=== PATIENT | female | born 1965 | race Caucasian/White ===

== ENCOUNTER 2022-10-05 08:22 | Outpatient (REF) | payer MEDICAID, SELFPAY ==
--- NOTE | ~2022-10-05 | XR_ITS ---
EXAMINATION: XR SHOULDER, LEFT CLINICAL INFORMATION: Left shoulder pain. COMPARISON: None available. TECHNIQUE: AP external rotation, scapular Y of the left shoulder. Glenohumeral degenerative type changes. Mild widening of the AC joint without superior orientation of the clavicle relative to the acromion. Demineralization. Visualized ribs are intact. Increased markings are identified in the left upper lung, in part likely apical scarring but pulmonary parenchymal component questioned. Aortic calcifications. XR/XR shoulder LT min 2V IMPRESSION: Degenerative type changes. Chest radiograph recommended for increased markings left apex.
== END 2022-10-05 08:23 | disposition home or self-care (01) ==
LOC: HO.HOSX 08:22
PROVIDERS: Visit Provider Orthopaedic Surgery
DX: M75.42 Impingement syndrome of left shoulder (principal)
CPT/HCPCS: 73030; 99212

== ENCOUNTER 2022-10-05 08:53 | Outpatient (AMB) | payer MEDICAID, SELFPAY ==
--- NOTE | 2022-10-05 09:03 | MHC.OFFVIS ---
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 Stephens for her left shoulder pain and stiffness. The patient did undergo left shoulder arthroscopic surgery several years ago. She got good relief from that surgery initially. She states that over the last year her shoulder pain and stiffness have gotten progressively worse in spite of continued non operative treatments. She has had cortisone injections in the past which gave her minimal relief. She has also done physical therapy for 12 weeks over the last 6 months which aggravated her pain. She has tried Tylenol and anti-inflammatory medicines which gave her minimal relief. The patient reports difficulty lifting her left hand above shoulder height. 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 Physical Exam Const Other: Well-nourished well-developed very friendly female awake alert and oriented x3 in no acute distress Extrem Other: Bilateral upper extremity examination shows good capillary refill, no skin lesions noted, normal sensation light touch Left shoulder examination shows decreased active and passive range of motion when compared to her right shoulder, pain with range of motion, positive impingement signs, 4+ out of 5 strength with supraspinatus testing, tenderness over her acromioclavicular joint, no instability Results Reviewed Results Reviewed: X-rays of the patient's left shoulder taken today show severe acromioclavicular joint narrowing, type 2 acromion, no acute bony abnormalities MRI of the patient's left shoulder shows acromioclavicular joint narrowing, type 2 acromion, signal change within the supraspinatus tendon due to rotator cuff tendinosis versus a small rotator cuff tear Assessment & Plan Assessment & Plan (1) Impingement syndrome of left shoulder: Code(s): M75.42 - Impingement syndrome of left shoulder Plan Ms. Leach presents with left shoulder pain and weakness due to acromioclavicular joint arthritis, impingement syndrome and rotator cuff tendinosis versus possible rotator cuff tearing or adhesive capsulitis. I had a lengthy discussion with the patient regarding the treatment options. At this point she has failed continued non operative treatments. The risks and benefits of left shoulder surgery were discussed at length with the patient. The patient wishes to proceed with surgery. Surgery will most likely involve left shoulder diagnostic arthroscopy with distal clavicle excision, acromioplasty, possible anterior capsular release with manipulation under anesthesia as well as possible rotator cuff repair showed a full-thickness tear be found at the time of her surgery. The patient will contact my office to pick a surgery date. She will follow up as instructed. She will continue with her range of motion exercises in the meantime to prevent stiffness. The patient will be given a prescription for pain medicine at the time of her surgery. Feel free to call me at any time should questions regarding her orthopedic management arise. Thank you very much for asking me to see this very friendly patient. I spent 24 minutes in reviewing the patient's records and imaging studies, seeing the patient and documenting in the medical record. Orders: Orders XR shoulder LT min 2V Today M25.512 - Pain in left shoulder Coding Level of Care Code Est Pt Level 2 (64081) Diagnoses Impingement syndrome of left shoulder M75.42
[2022-10-05 09:10] VITALS: BMI 23.8
== END 2022-10-05 09:47 | disposition home or self-care (01) ==
PROVIDERS: Visit Provider Orthopaedic Surgery
DX: M75.42 Impingement syndrome of left shoulder (principal)
CPT/HCPCS: 99212

== ENCOUNTER → 2022-10-30 08:17 | Day surgery (SDC) | payer MEDICAID, SELFPAY ==
[2022-10-30 08:33] VITALS: BP 131/67; PULSE 75; RESP 16; TEMP 36.1; O2SAT 96; BMI 23.5
--- NOTE | 2022-10-30 09:28 | HO.ANESPROP2 ---
HPI - Anesthesia Eval Consult details Narrative: left shoulder surgery, smoker , copd, smoked today , took inhaler PMF Active Problems Active Problems: All Active Problems (Updated 10/05/22 @ 09:59 by Tino Stephens MD) Impingement syndrome of left shoulder (Acute) Left shoulder pain (Acute) Past Medical History Medical History High cholesterol Family History Family history of problems with anesthesia: No Surgical History History of Problems with Anesthesia: No Social History Social History Patient Tobacco Use Status: Current everyday Tobacco user Tobacco use type: Cigarette Cigarettes Per Day: 4 Are you DNR?: No Advance Directives: No Advance Directives Information Provided: Yes Current occupational status: employed 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 Meds Allergies Allergy/AdvReac Type Severity Reaction Status Date / Time infliximab [From Remicade] Allergy Anaphylaxis Verified 10/30/22 08:55 rituximab [From Rituxan] Allergy Anaphylaxis Verified 10/30/22 08:55 novacaine Allergy Mild Hives Uncoded 10/05/22 09:11 Active Medications: Current Medications Albuterol Sulfate (Albuterol Sulfate (0.083%) 2.5 Mg/3 Ml Vial.Neb) 2.5 mg INHALE ONCE PRN PRN Reason: Shortness of Breath/Wheezing Lactated Ringer's (Lr) 1,000 mls @ 100 mls/hr IVCONT .Q10H JENIFFER Home Medications Medication Instructions Recorded Confirmed Last Taken Type budesonide-formoterol HFA 80 1 inh inhalation BID 10/05/22 10/05/22 10/29/22 History mcg-4.5 mcg/actuation aerosol inhaler (Symbicort) cholecalciferol (vitamin D3) 10 10 mcg PO DAILY 10/05/22 10/05/22 Unknown History mcg (400 unit) capsule diphenhydramine HCl 12.5 mg/5 mL 12.5 mg PO BEDTIME 10/05/22 10/05/22 Unknown History oral liquid (Benadryl Allergy) ezetimibe 10 mg-rosuvastatin 5 mg 1 tab PO DAILY 10/05/22 10/05/22 Unknown History tablet tocilizumab 80 mg/4 mL (20 mg/mL) IV 10/05/22 10/05/22 Unknown History intravenous solution (Actemra) albuterol sulfate 90 mcg/actuation 2 puff inhalation TID PRN 10/30/22 10/30/22 10/30/22 History aerosol inhaler Shortness Of Breath Exam Exam Date and Time: October 30, 2022 0928 Height,Weight and Vital Signs: Height 5 ft 7 in Weight 68.039 kg Last Vital Signs Temp 97 F 10/30/22 08:33 Airway Mallampati Class: II TM Dist: >3cm Neck ROM: Full Denture: Upper and Lower Heart: rrr Lungs: cta Assessment and Plan Final Anesthetic Review Family History of Problems with Anesthesia: No History of Problems with Anesthesia: No NPO: Yes ASA Class: III Final Preanesthetic Review: No Changes in Pt Med Stat, Meds/Allgs Chart Reviewed, Consent Obtained/Reviewed and Anes Risks/Benef Reviewed Patient Risk: Intermediate Procedure Risk: Intermediate Anesthetic Plan Anesthetic Plan: GA, Regional Block and Agree w/ Assess. and Plan Disposition: Standard PACU
[2022-10-30] MEDS: Albuterol/Iprat 2.5/0.5MG 3 ML AMPUL.NEB INHALE (09:41)
[2022-10-30 09:44] VITALS: PULSE 72; RESP 16; O2SAT 97
--- NOTE | 2022-10-30 10:52 | HO.ANESEVENT ---
Anesthesia Event Note Date of Service: 10/30/22 Event Note: pt with severe wheezing on right and absent breath sounds on left . pt is a smoker and smoked this AM. Had pneumonia which was treated on right side in august . got steroid taper and abiotics. today received albuterol, duoneb, and dexamethasone i.v with min improvement pt still wheezing and very diminished breathsounds bilaterally confirmed by 2 other providers , increasedrespiratory risk to proceed with interscalens block on left unless pt can be admitted in the event of further decompensation.discuss with surgeon who agrees with above . joint decsion taken to pistpone surgery , have pt see pulm for optimisation , rec chest x ray prior to surgery. Time Spent With Patient Time: Total time managing care of this patient today ____ minutes.
== END ==
PROVIDERS: PCP Family Medicine; Visit Provider Orthopaedic Surgery
DX: M75.102 Unspecified rotator cuff tear or rupture of left shoulder, not specified as traumatic (principal); Z53.8 Procedure and treatment not carried out for other reasons; R06.2 Wheezing; Z87.01 Personal history of pneumonia (recurrent); F17.210 Nicotine dependence, cigarettes, uncomplicated
CPT/HCPCS: 94640; 99499; J0171; J3010

== ENCOUNTER 2022-11-14 08:06 | Outpatient (AMB) | payer MEDICAID, SELFPAY ==
--- NOTE | 2022-11-14 08:12 | MHC.OFFVIS ---
Intake Intake Visit Reasons: OV RT shld, consult for surgery Intake Note: Pt presents to the office today for a OV for right shoulder surgery consult. Pt is left handed dominant. She states she has had 1 previous surgery on the same shoulder back in 2005. Pt states also had 1 injection in that shoulder as well back in August of 2022. Pt states the injection did not help at all. Pt states she has cracking, and popping in her shoulder. She states her pain is at a 9 right now. She states nothing is helping her at this point and time. She states that over the last year her shoulder pain and stiffness have gotten progressively worse in spite of continued non operative treatments.? She has had cortisone injections in the past which gave her minimal relief.? She has also done physical therapy for 12 weeks over the last 6 months which aggravated her pain.? She has tried Tylenol and anti-inflammatory medicines which gave her minimal relief.? The patient reports difficulty lifting her left hand above shoulder height.? She was recently scheduled for left shoulder surgery. That surgery was postponed due to pulmonary issues. Since that time she has been evaluated by her substitute nurse to did clear her for surgery. Allergies infliximab [From Remicade] Allergy (Verified 11/14/22 08:13) Anaphylaxis rituximab [From Rituxan] Allergy (Verified 11/14/22 08:13) Anaphylaxis novacaine Allergy (Mild, Uncoded 11/14/22 08:13) Hives Medication List - Last Reconciled 11/14/22 by Tino Stephens MD albuterol sulfate 90 mcg/actuation 2 puffs inhalation TID PRN budesonide-formoterol 80-4.5 mcg/actuation (Symbicort) 1 inh inhalation BID cholecalciferol (vitamin D3) 10 mcg PO DAILY diphenhydramine HCl (Benadryl Allergy) 12.5 mg PO BEDTIME ezetimibe-rosuvastatin 10-5 mg 1 tab PO DAILY tocilizumab (Actemra) IV PFSH Medical History Bronchitis COPD (chronic obstructive pulmonary disease) High cholesterol Surgical History History of lung surgery Hx laparoscopic cholecystectomy Social History Patient Tobacco Use Status: Current everyday Tobacco user Tobacco use type: Cigarette Cigarettes Per Day: 4 Current occupational status: employed 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 Physical Exam Const Other: Well-nourished well-developed very friendly female awake alert and oriented x3 in no acute distress Lungs clear to auscultation bilaterally with symmetric expansion Cardiovascular exam regular rate and rhythm Abdominal exam is soft nontender nondistended Extrem Other: Bilateral upper extremity examination shows good capillary refill, no skin lesions noted, normal sensation light touch Left shoulder examination shows decreased range of motion when compared to her right shoulder, 4+ out of 5 strength with supraspinatus testing, positive impingement signs, tenderness over her acromioclavicular joint, no instability Results Reviewed Results Reviewed: MRI of the patient's left shoulder shows severe acromioclavicular joint narrowing, a type 2 acromion, signal change within the supraspinatus tendon due to rotator cuff tendinosis versus a small tear Assessment & Plan Assessment & Plan (1) Impingement syndrome of left shoulder: Code(s): M75.42 - Impingement syndrome of left shoulder Plan: Ms. Leach presents with left shoulder pain and weakness due to acromioclavicular joint arthritis, impingement syndrome and rotator cuff tendinosis versus possible rotator cuff tearing or adhesive capsulitis.? I had a lengthy discussion with the patient regarding the treatment options.? At this point she has failed continued non operative treatments.? The risks and benefits of left shoulder surgery were discussed at length with the patient.? The patient wishes to proceed with surgery.? Surgery will most likely involve left shoulder diagnostic arthroscopy with distal clavicle excision, acromioplasty, possible anterior capsular release with manipulation under anesthesia as well as possible rotator cuff repair showed a full-thickness tear be found at the time of her surgery.? The patient recently had her left shoulder surgery postponed due to pulmonary issues. She has been cleared by her substitute nurse. The patient will contact my office to pick a surgery date.? She will follow up as instructed.? She will continue with her range of motion exercises in the meantime to prevent stiffness.? The patient was given a prescription for Tylenol No. 3 for her postoperative pain. Feel free to call me at any time should questions regarding her orthopedic management arise.? Coding Level of Care Code Est Pt Level 2 (00405) Diagnoses Impingement syndrome of left shoulder M75.42
== END 2022-11-14 08:25 | disposition home or self-care (01) ==
PROVIDERS: PCP Family Medicine; Visit Provider Orthopaedic Surgery
DX: M75.42 Impingement syndrome of left shoulder (principal)
CPT/HCPCS: 99212

== ENCOUNTER → 2022-11-14 08:06 | Outpatient (BNVA) | payer OTHER, MEDICAID, SELFPAY | PROVIDERS: PCP Family Medicine; Visit Provider Orthopaedic Surgery | DX: M75.42 Impingement syndrome of left shoulder (principal) | CPT/HCPCS: 99212 ==

== ENCOUNTER 2022-12-01 06:51 | Day surgery (SDC) | payer OTHER, MEDICAID, SELFPAY ==
--- NOTE | 2022-11-30 09:18 | P.CONAN_ITS ---
Documented by User: Chloé Johnson NP 11/30/22 09:35 HPI - Anesthesia Eval Consult details Narrative: 57yo F for Left Shoulder Arthroscopy with a distal clavicle excision,poss Acromioplasty,with poss rotator cuff repair Previously cx'd d/t poor respiratory status / increased pulmo risk with scalene block Subsequently seen by pulm, nml CXR and prednisone. ? 5mg daily Cleared 11/29/22 at intermed risk PMFSH Active Problems Active Problems: All Active Problems (Updated 10/30/22 @ 09:37 by Kylah Aguiar RN) Left shoulder pain (Acute) Impingement syndrome of left shoulder (Acute) Past Medical History Medical History (Updated 12/01/22 @ 07:01 by Jennifer Gonzalez RN) Anemia Smoker Rheumatoid arthritis Bronchitis COPD (chronic obstructive pulmonary disease) High cholesterol Family History Family history of problems with anesthesia: No Surgical History Surgical History (Updated 12/01/22 @ 07:03 by Jennifer Gonzalez RN) Hx of colonoscopy History of ear surgery History of lung surgery Hx laparoscopic cholecystectomy History of Problems with Anesthesia: No Social History Social History Patient Tobacco Use Status: Current everyday Tobacco user Tobacco use type: Cigarette Cigarettes Per Day: 2 Use of substances other than those prescribed or required for medical reasons: No Are you DNR?: No Advance Directives: No Advance Directives Information Provided: Yes Current occupational status: employed 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5 mg/5 mL 12.5 mg PO BEDTIME 10/05/22 11/14/22 Unknown History oral liquid (Benadryl Allergy) ezetimibe 10 mg-rosuvastatin 5 mg 1 tab PO DAILY 10/05/22 11/14/22 Unknown History tablet tocilizumab 80 mg/4 mL (20 mg/mL) IV 10/05/22 11/14/22 Unknown History intravenous solution (Actemra) albuterol sulfate 90 mcg/actuation 2 puff inhalation TID PRN 10/30/22 11/14/22 10/30/22 History aerosol inhaler Shortness Of Breath albuterol sulfate 2.5 mg/3 mL mg inhalation 12/01/22 12/01/22 Unknown History (0.083 %) solution for nebulization nicotine 21 mg/24 hr daily 1 patch topical DAILY 12/01/22 12/01/22 Unknown History transdermal patch omeprazole 40 mg capsule,delayed 40 mg PO DAILY 12/01/22 12/01/22 Unknown History release prednisone 5 mg tablet 5 mg PO DAILY 12/01/22 12/01/22 Unknown History tiotropium bromide 2.5 2.5 mcg inhalation DAILY 12/01/22 12/01/22 Unknown History mcg/actuation mist for inhalation (Spiriva Respimat) Exam Exam Date and Time: November 30, 202218 Narrative Narrative: PFT 08/2022 Abnormal PFT as evidence primarily by a severe obstructive bent defect assoc with a very severe reduction of the diffusing capacity. In a smoker patient this is compatible with the diagnosis of Stage 3 COPD with or without pulmo vascular disease. CXR 10/2022 No evidence of an acute chest process Assessment and Plan Assessment Anesthesia Assessment: Chart Reviewed Final Anesthetic Review Family History of Problems with Anesthesia: No History of Problems with Anesthesia: No Documented by User: Kwan Reed MD 12/01/22 09:03 [facility] Past Medical History Medical History (Updated 12/01/22 @ 07:01 by Jennifer Gonzalez RN) Anemia Smoker Rheumatoid arthritis Bronchitis COPD (chronic obstructive pulmonary disease) High cholesterol Surgical History Surgical History (Updated 12/01/22 @ 07:03 by Jennifer Gonzalez RN) Hx of colonoscopy History of ear surgery History of lung surgery Hx laparoscopic cholecystectomy Social History Social History Patient Tobacco Use Status: Current everyday Tobacco user Tobacco use type: Cigarette Cigarettes Per Day: 2 Use of substances other than those prescribed or required for medical reasons: No Are you DNR?: No Advance Directives: No Advance Directives Information Provided: Yes Current occupational status: employed 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5 mg/5 mL 12.5 mg PO BEDTIME 10/05/22 11/14/22 Unknown History oral liquid (Benadryl Allergy) ezetimibe 10 mg-rosuvastatin 5 mg 1 tab PO DAILY 10/05/22 11/14/22 Unknown History tablet tocilizumab 80 mg/4 mL (20 mg/mL) IV 10/05/22 11/14/22 Unknown History intravenous solution (Actemra) albuterol sulfate 90 mcg/actuation 2 puff inhalation TID PRN 10/30/22 11/14/22 10/30/22 History aerosol inhaler Shortness Of Breath albuterol sulfate 2.5 mg/3 mL mg inhalation 12/01/22 12/01/22 Unknown History (0.083 %) solution for nebulization nicotine 21 mg/24 hr daily 1 patch topical DAILY 12/01/22 12/01/22 Unknown History transdermal patch omeprazole 40 mg capsule,delayed 40 mg PO DAILY 12/01/22 12/01/22 Unknown History release prednisone 5 mg tablet 5 mg PO DAILY 12/01/22 12/01/22 Unknown History tiotropium bromide 2.5 2.5 mcg inhalation DAILY 12/01/22 12/01/22 Unknown History mcg/actuation mist for inhalation (Spiriva Respimat) Exam Airway Mallampati Class: I TM Dist: >3cm Partial: Upper Heart: rrr Lungs: cta Assessment and Plan Final Anesthetic Review NPO: Yes ASA Class: IV Final Preanesthetic Review: No Changes in Pt Med Stat, Meds/Allgs Chart Reviewed, Consent Obtained/Reviewed and Anes Risks/Benef Reviewed Patient Risk: High Procedure Risk: Intermediate Anesthetic Plan Anesthetic Plan: GA, Regional Block and Agree w/ Assess. and Plan Disposition: Standard PACU
[2022-12-01] VITALS (9 sets, daily range): BP systolic 101–128; BP diastolic 52–74; PULSE 74–85; RESP 16–18; TEMP 36.4–36.8; O2SAT 94–100; BMI 23.8
[2022-12-01] MEDS: Lactated Ringers 1,000 ML 100 ML IVCONT (08:01)
[2022-12-01] MEDS: Albuterol Sulfate 5 MG, Albuterol/Iprat 2.5/0.5MG 3 ML 3 ML INHALE (08:20)
--- NOTE | 2022-12-01 10:27 | P.BOP_ITS ---
Brief Operative Note Date of Service: 12/01/22 Pre-op diagnosis: Left shoulder impingement syndrome, left shoulder arthritis Post-op diagnosis: same Procedure: Left shoulder diagnostic arthroscopy with left shoulder arthroscopic distal clavicle excision and left shoulder acromioplasty Implants: none Surgeon: Tino Stephens MD Anesthesia: GETA Was an Boring Machine Operator Horizontal used for this Procedure?: No Estimated blood loss (mL): 10 Pathology: none sent Condition: stable Disposition: PACU
--- NOTE | 2022-12-01 10:28 | W.PM.OPN ---
Operative Note Operative Note Date of Service: 12/01/22 Narrative: After the patient was identified as Gisel Leach and their left shoulder was initialed by myself the patient was brought to the holding area where a left shoulder interscalene regional block was performed by the anesthesiologist in routine fashion. The patient was then brought to the operating room where general anesthesia was induced by the anesthesiologist in routine fashion. The patient was given 2 g of IV Ancef preoperatively for infection prophylaxis. Examination under anesthesia of the patient's left shoulder showed full passive range of motion of the patient's left shoulder when compared to the right. The patient was gently positioned in the beach chair position with all bony prominences well padded. The patient's left shoulder region and upper extremity were prepped and draped in sterile fashion. A formal time-out was completed. A #11 scalpel blade was used to make a posterior portal 2 cm inferior and 1 cm medial to the posterolateral corner of the acromion. Blunt trocar technique was used to enter the glenohumeral joint in routine fashion. An anterior portal was made just lateral to the coracoid process after proper positioning was confirmed using a spinal needle. Diagnostic arthroscopy showed minimal degenerative changes of the glenoid and humeral head articular surfaces. There was no evidence of rotator cuff tearing. There was no evidence of injury to the biceps tendon or its insertion onto the glenoid. There was no inflammation of the anterior joint capsule. The arthroscope was then placed from the posterior portal into the subacromial space. A lateral portal was made 2 fingerbreadths lateral to the anterior lateral corner of the acromion. The ArthroCare Wand was used to ablate soft tissues along the undersurface of the acromion as well as to excise the coracoacromial ligament. There was a sharp spur along the undersurface of the acromion which was removed using the hooded bur. The arthroscope was then placed into the lateral portal and the acromioplasty was completed with the bur in the posterior portal using the posterior aspect of the acromion as a cutting block. The ArthroCare Wand was then brought in through the anterior portal and was used to ablate soft tissues along the acromioclavicular joint and distal clavicle. The posterior and superior ligamentous structures were left intact. A distal clavicle excision of 4 mm was performed using the hooded bur. Any remaining bursal tissue was removed using the arthroscopic shaver. The subacromial space was irrigated and then drained. All arthroscopic instruments were removed. The 3 portals were closed with 3-0 nylon interrupted suture. The subacromial space was injected with Marcaine. Dry sterile dressing was placed over all incisions. The patient's left upper extremity was placed into a sling. The patient was awoken and extubated in the operating room. The patient was transferred to the recovery room in stable condition.
[2022-12-01] MEDS: cefTRIAXone sodium 1 GM in 0.9 % Sodium Chloride 50 ML IV (10:40)
[2022-12-01] MEDS: Albuterol Sulfate (0.083%) 2.5 MG/3 ML VIAL.NEB INHALE (11:23)
== END 2022-12-01 11:49 | disposition home or self-care (01) ==
PROVIDERS: PCP Family Medicine; Visit Provider Orthopaedic Surgery
PROC: (CPT 29805; principal; 2022-12-01 08:40)
DX: M75.42 Impingement syndrome of left shoulder (principal); M19.012 Primary osteoarthritis, left shoulder; M25.512 Pain in left shoulder; E78.00 Pure hypercholesterolemia, unspecified; J44.9 Chronic obstructive pulmonary disease, unspecified; J40 Bronchitis, not specified as acute or chronic; Z98.890 Other specified postprocedural states; Z79.899 Other long term (current) drug therapy; Z88.8 Allergy status to other drugs, medicaments and biological substances; F17.210 Nicotine dependence, cigarettes, uncomplicated; Z90.49 Acquired absence of other specified parts of digestive tract
CPT/HCPCS: 29824; 29826; 94640; J0131; J0171; J0690; J0696

== ENCOUNTER → 2022-12-01 06:51 | Outpatient (BNV) | payer OTHER, MEDICAID, SELFPAY | PROVIDERS: PCP Family Medicine; Visit Provider Orthopaedic Surgery | DX: M75.42 Impingement syndrome of left shoulder (principal); M19.012 Primary osteoarthritis, left shoulder | CPT/HCPCS: 29824; 29826 ==

== ENCOUNTER 2022-12-14 14:46 | Outpatient (AMB) | payer MEDICAID, SELFPAY ==
--- NOTE | 2022-12-14 14:53 | MHC.OFFVIS ---
Intake Intake Visit Reasons: PO-Lt Shoulder RTC Repair 12/01/22 Intake Note: Gisel a 57 year old female who presents today for a post operative left shoulder RTC repair, DOS 12/01/22 Patient reports she is doing well, denies any pain. She continues to do at home exercises. Allergies infliximab [From Remicade] Allergy (Verified 12/14/22 14:55) Anaphylaxis rituximab [From Rituxan] Allergy (Verified 12/14/22 14:55) Anaphylaxis novacaine Allergy (Mild, Uncoded 12/14/22 14:55) Hives HPI PO-Lt Shoulder RTC Repair 12/01/22 HPI Details 57-year-old female who returns to the office today for post-op left shoulder SAD DCE, 12/01/[address] Stephens. She denies any pain and is doing well overall. She continues to do exercises at home as instructed. She has no other concerns today. 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 No erythema or drainage. Forward flexion to 100 degrees, external rotation to 45 degrees. NVI. Assessment & Plan Assessment & Plan (1) Impingement syndrome of left shoulder: Code(s): M75.42 - Impingement syndrome of left shoulder Plan Sutures removed today, steri strips applied. She will begin a course of physical therapy as she wants to improve her motion and strength. She will increase activity as tolerated and she will return to see us back in [address] Stephens sooner if needed. Orders: Orders PT Evaluation and Treatment Today M75.42 - Impingement syndrome of left shoulder Patient Instructions: Scribed for Erika Philip PA-C, by Familia Simpson, medical assistant dermatology, on 12/14/2022 at 2:45 PM EST. I, Erika Philip PA-C, have personally reviewed and agree with the information entered by the scribe. Coding Level of Care Code Global (22197) Diagnoses Impingement syndrome of left shoulder M75.42
== END 2022-12-14 15:36 | disposition home or self-care (01) ==
PROVIDERS: PCP Family Medicine; Visit Provider Physician Assistant
DX: M75.42 Impingement syndrome of left shoulder (principal)
CPT/HCPCS: 99024

== ENCOUNTER → 2022-12-14 14:46 | Outpatient (BNVA) | payer MEDICAID, SELFPAY | PROVIDERS: PCP Family Medicine; Visit Provider Physician Assistant ==

== ENCOUNTER 2024-05-06 08:55 | Outpatient (AMB) | payer BC, MEDICAID, SELFPAY ==
--- NOTE | 2024-05-06 08:58 | MHC.OFFVIS ---
Vital Signs 05/06/24 09:01 Height 5 ft 7 in Weight 162 lb 11.218 oz BMI 25.5 BP 114/68 Blood Pressure Location Rt brachial Position Sitting Pulse 73 Pulse Source Pulse Oximeter Pulse Oximetry (%) 97 Oxygen Delivery Method Room Air Intake Visit Reasons: Obesity Intake Note: New patient externally referred by PCP for Obesity. Sales Support Consultant Required: No Accompanied by: Significant Other Allergies infliximab [From Remicade] Allergy (Verified 05/06/24 09:02) Anaphylaxis rituximab [From Rituxan] Allergy (Verified 05/06/24 09:02) Anaphylaxis novacaine Allergy (Mild, Uncoded 05/06/24 09:02) Hives Medication List - Last Reconciled 05/06/24 by Emile Wong MD acetaminophen-codeine 300-30 mg 1 tab PO Q4H PRN albuterol sulfate mg inhalation albuterol sulfate 90 mcg/actuation 2 puffs inhalation TID PRN aspirin 81 mg PO DAILY atorvastatin mg PO DAILY budesonide-formoterol 80-4.5 mcg/actuation (Symbicort) 1 inh inhalation BID calcium carbonate 600 mg PO BID cholecalciferol (vitamin D3) 10 mcg PO DAILY clopidogrel (Plavix) 75 mg PO DAILY clopidogrel mg PO DAILY diphenhydramine HCl (Benadryl Allergy) 12.5 mg PO BEDTIME esomeprazole magnesium 40 mg PO DAILY evolocumab (Repatha SureClick) mg subcut ezetimibe-rosuvastatin 10-5 mg 1 tab PO DAILY fexofenadine 180 mg PO DAILY fluconazole mg PO Q72H fdenbowizoc-chfcjfryc-btteorig 200-62.5-25 mcg (Trelegy Ellipta) 1 inh inhalation DAILY folic acid PO DAILY ipratropium-albuterol 0.5 mg-3 mg(2.5 mg base)/3 mL mL inhalation methotrexate sodium mg PO .3 tabs PO Q 7 days nicotine 1 patch topical DAILY omeprazole 40 mg PO DAILY ondansetron mg PO Q8H prednisone 5 mg PO DAILY roflumilast mcg PO DAILY tiotropium bromide 2.5 mcg/actuation (Spiriva Respimat) 2.5 mcg inhalation DAILY tocilizumab (Actemra) IV HPI Comments Details: This is a 59-year-old white female sent to endocrinology for evaluation of abnormal weight gain and inability to lose weight. Patient has gained 30 lb over 1 1/2 mos . Claims low food intake in small quantities . she has not tried weight loss medications. She has not seen a crop pest control specialist. She is currently on chronic prednisone 5 mg day on and off for COPD but on steady dose for couple of yrs . There are symptoms of Lizeth syndrome. There are no specific symptoms of hypothyroidism and the patient recently had a TSH level that was checked that was normal. She Has symptoms of sleep apnea snoring but no hx of sleep apnea . 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 Thyroid gland is normal size weighs about 15 g. . . There are no thyroid nodules palpated Assessment & Plan Assessment & Plan (1) Obesity: Code(s): E66.9 - Obesity, unspecified Category: Medical Plan: This is a 59-year-old white female with a history of inability to lose weight. This may be a multifactorial problem considering the chronic use of steroids. She is clinically and biochemically euthyroid Plan is to send the patient to crop pest control specialist here. . I also took the liberty of starting a Abel 3 which hopefully will be covered by insurance. I started metformin /pioglitazone 500 mg /15 mg to prevent progression prediabetes diabetes and also for secondary stroke prevention in terms of the pioglitazone. I warned the patient about side effects including edema with the pioglitazone and risk of congestive heart failure. The metformin dose could be titrated up to 2000 mg if necessary but the pioglitazone dose can be kept at 15 mg. . The patient will follow-up with Ni Vazquez NP in 4 weeks. I also went over counseling about smoking cessation with the patient Orders: Referrals Nutrition/Dietitian Referral E66.9 - Obesity, unspecified Medications: New blood-glucose sensor (FreeStyle Abel 3 Plus Sensor device) As directed change every 15 days 2 ea 5RF pioglitazone-metformin 15-500 mg 1 tab PO DAILY 30 tabs 5RF Coding Level of Care Code New Pt Level 4 (10049) Diagnoses Obesity E66.9
[2024-05-06 09:01] VITALS: BP 114/68; PULSE 73; O2SAT 97; BMI 25.5
--- OUTSIDE RECORDS SUMMARY | 2024-05-06 09:40 | XMS_ITS | Encounter Summary ---
Author Organization [employer] Address [address] [place] [address] Care Team Providers Care Enterprise Sales Executive Name Role Phone Manav Sanford MD Primary Care Provider [phone] Encounter Details Date Type Department Care Team (Late Contact Info) Description 04/01/2024 Lab Requisition [facility] - Main Lab [address] [facility] [place] [phone] Curtis Karimi MD [address] [address] Epigastric pain Social History Tobacco Use Types Packs/Day Years Used Date Smoking Tobacco: Every Day Cigarettes Smokeless Tobacco: Never Alcohol Use Standard Drinks/Week Comments No 0 (1 standard drink = 0.6 oz pur e alcohol) Comments Unknown Sex and Gender Information Value Date Recorded Sex Assigned at Female 04/09/2024 12:23 PM EST Legal Sex Female 11:11 PM EST Gender Identity Female 04/09/2024 12:23 PM EST Sexual Orientation Straight 04/09/2024 12 :23 PM EST documented as of this encounter Plan of Treatment Upcoming Encounters Date Type Department Care Team (Late Contact Info) Description 06/16/2024 8:15 AM EDT Appointment [facility] Nuclear Medicine [address] [place] [phone] documented as of this encounter Procedures Procedure Name Priority Date/Time Associated Diagnosis Comments TISSUE EXAM Routine 04/01/2024 Epigastric pain documented in this encounter Results * Tissue Exam (04/01/2024) Final Diagnosis A. Duodenum, 2nd/3rd portion, biopsy: Benign duodenal mucosa with no specific pathologic change. No villous blunting or increased intraepithelial lymphocytes identified. B. Stomach, antrum, biopy: Gastric mucosa with mild chronic inactive gastritis and reactive changes. No Helicobacter pylori identified. Note: No Helicobacter was identified on routine stains. Because of gastritis and clinical concern, immunohistochemical stain for H. pylori was performed and is interpreted as negative, supporting the above diagnosis. Control stains appropriately. 2:42 PM [facility] Gross Description A. Small Intestine, Duodenum, 2nd/3rd biopsy: Labeled 2nd/3rd duodenum biopsy . Received in formalin, are four irregular soft to rubbery, melo tissue fragments, approximately ranging from 0.2 cm to 0.3 cm in greatest diameters, which are wrapped in paper and submitted in toto in one cassette, four pieces, multiple levels. B. Stomach, antrum biopy: Labeled stomach-antrum biopsy . Received in formalin, are four irregular soft to rubbery, melo tissue fragments, approximately ranging from 0.1 cm to 0.25 cm in greatest diameters, which are wrapped in paper and submitted in toto in one cassette, four pieces, multiple levels. dvb/DG 2:42 PM [facility] Disclaimer NOTE: The immunohistochemical tests and in situ hybridization tests were developed and their performance characteristics were determined by [facility]. They have not been cleared or approved by the U.S. Food and Drug Administration. The FDA has determined that such clearance or approval is not necessary. These tests are used for clinical purposes. They should not be regarded as investigational or for research. This laboratory is certified under the Clinical Laboratory Improvement Amendments of 1988 (CLIA) as qualified to perform high complexity clinical laboratory testing. (controls appropriate) Unless otherwise specified, all tissue is 10% NB formalin fixed and paraffin embedded. 2:42 PM [facility] Tissue Stomach structure / Unknown 04/01/2024 04/01/2024 2:59 PM EST Tissue specimen (specimen) Stomach structure / Unknown 04/01/2024 04/01/2024 2:59 PM EST us Curtis Karimi MD LAB PATHOLOGY ORDERABLES Shannon lai Result [facility] [address] [place] [address], documented in this encounter Visit Diagnoses Diagnosis Epigastric pain Abdominal pain, epigastric documented in this encounter Care Teams Enterprise Sales Executive Relationship Specialty Start Date End Date Manav Sanford MD [address] [place] [phone] PCP - General Family Medicine 04/07/24 documented as of this encounter
--- OUTSIDE RECORDS SUMMARY | 2024-05-06 09:40 | XMS_ITS | Encounter Summary ---
Author Organization [employer] Address [address] [place] [address] Care Team Providers Care Dual Rate Dealer Name Role Phone Manav Sanford MD Primary Care Provider Reason for Visit * Reason Onset Date Comments Results 04/07/2024 Encounter Details Date Type Department Care Team (Late st Contact Info) Description 04/07/2024 Telephone Gastroenterology - [address] [place] [phone] Jessica Osborne MA Results Social History Tobacco Use Types Packs/Day Years [...] PM EST documented as of this encounter Progress Notes * Jessica Osborne MA - 04/07/2024 11:[address] Karimi told pt Biopsies okay. Needs to have a gastric emptying study to complete the workup. Explained what the test involves,. Will call patient with those results when we have them. documented in this encounter Plan of Treatment Upcoming Encounters Date Type Department Care Team (Late st Contact Info) Description 06/16/2024 8:15 AM EDT Appointment [facility] Nuclear Medicine [address] [place] [phone] documented as of this encounter Visit Diagnoses Not on filedocumented in this encounter Care Teams Dual Rate Dealer Relationship Specialty Start Date End Date Manav Sanford MD [address] [phone] PCP - General Family Medicine 04/07/24 documented as of this encounter
--- OUTSIDE RECORDS SUMMARY | 2024-05-06 09:40 | XMS_ITS | Clinical Summary ---
Author Organization [facility] Address [address] [place] [address] Care Team Providers Care Plasma Processing Technician Name Role Phone Unavailable Primary Care Provider Unavailabl e Social History Tobacco Use Types Packs/Day Years Used Date Smoking Tobacco: Never Assessed Sex and Gender Information Value Date Recorded Sex Assigned at Not on file Gender Identity Not on file Sexual Orientation Not on file Job Start Date Occupation Industry Not on file Not on file Not on file Plan of Treatment Health Maintenance Due Date Last Done Comments Hepatitis C Screening 1965 COVID-19 Vaccine (#1) 1964 Depression Screening 1976 Preventative Health Evaluation 1982 Cervical Cancer Screening (Pap Smear) 1985 Colon Cancer Screening (Colonoscopy) 2009 Breast Cancer Screening (Mammogram) 2014 Shingrix-Zoster Vaccine (1 of 2) 2014 Influenza Vaccine (#1) 2023 0, 2019, 2019, Additional history exists DTap / Tdap / Td (4 - Td or Tdap) 04/08/2028 04/08/2018, 11/06/2017, 11/07/2007 RSV Adult > 60+ Yrs or (1 - 1-dose 75+ series) 2039 Pneumococcal Vaccine Aged Out 09/20/2016, 09/15/19 16 No longer eligible based on patient's age to complete this topic Hepatitis B Vaccines Aged Out No long er eligible based on patient's age to complete this topic RSV Ped < 20 months Aged Out No longe r eligible based on patient's age to complete this topic
--- OUTSIDE RECORDS SUMMARY | 2024-05-06 09:41 | XMS_ITS | Clinical Summary ---
Author Organization [facility] [address] [facility] Address [address] [place] [address] Phone Care Team Providers Care Clutch Mechanic Name Role Phone Manav Sanford MD Primary Care Provider [phone] Allergies Active Allergy Reactions Criticality Noted Date Comments Adalimumab 03/06/2017 Other Reaction(s): Hives/Urticaria Infliximab 03/06/2017 Nortriptyline 08/31/2021 Procaine 03/06/2017 Other Reaction(s): Hives/Urticaria Rituximab 03/06/2017 Topiramate 08/31/2021 Valproic Acid 12/12/2019 Other Reaction(s): Myalgia and Joint Pain Emotional Lability Medications HYDROCORTISONE SOD SUCCINATE INJ Inject 100 mg into the vein. Active ONABOTULINUMTOX HARRISON INJ Botox every 3 months Active fexofenadine (CHULA) 180 mg tablet Chula Allergy 180 mg tablet Take 1 tablet every day by oral route for 90 days. Active aspirin 81 mg EC tablet aspirin take 81mg daily Active DIPHENHYDRAMINE HCL INJ 0 Refills, Maintenance, 02/22/21 8:50:00 EST, Partial fill upon patient request if the prescription is for a schedule II opioid drug. Active calcium carbonate-jerry calciferol 500 mg-10 mcg (400 unit) per tablet Take 1 Tablet by mouth. Active calcium carbonate-vitam in D3 600 mg-5 mcg (200 unit) per tablet Take by mouth. Acti ve fluticasone propionate (FLONASE) 50 mcg/actuation nasal spray by Nasal route. 7 Active ibuprofen 200 mg capsule Take 1 capsule by mouth every 6 (six) hours. Active tocilizumab (Actemra) 20 mg/mL solution Inject into the vein. Active cycloPHOSphamid e (CYTOXAN) 50 mg capsule Take 50 mg by mouth 3 times daily. Active folic acid (FOLVITE) 1 mg tablet Take 1 mg by mouth daily. Active pantoprazole (PROTONIX) 40 mg EC tablet Take 40 mg by mouth 2 times daily. Active budesonide-form oteroL (SYMBICORT) 80-4.5 mcg/actuation inhalerIndicati ons:Pneumonia, unspecified organism INHALE 2 PUFFS INTO THE LUNGS 2 TIMES DAILY FOR 30 DAYS. 10.2 each 11 4 Active predniSONE (DELTASONE) 5 mg tabletIndicatio ns:Chronic obstructive pulmonary disease, unspecified (CMS/HCC) TAKE 1 TABLET BY MOUTH EVERY DAY 30 tablet 2 4 Active Active Problems Problem Noted Date Diagnosed Date Allergic rhinitis 12/12/2019 CAD (coronary artery disease) 12/12/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 Overview (01/28/2024): No MRI Hyperlipidemia 12/12/2019 Mycobacterium avium infection 12/12/2019 Migraine with aura 12/12/2019 Osteopenia 12/12/2019 Retinal emboli 12/12/2019 Spondylolisthesis at L5-S1 level 12/12/2019 Tubular adenoma 12/12/2019 Vesicular eczema of hands and feet 12/12/2019 GERD (gastroesophageal reflux disease) 8 Pulmonary emphysema 03/06/2017 RA (rheumatoid arthritis) 03/06/2017 Encounters Date Type Department Care Team Description 04/07/2024 Telephone Gastroenterology - [address] [facility] [address] [place] [address] Jessica Osborne MA Results 04/01/2024 Lab Requisition [facility] - Main Lab [address] [facility] [place] [address] Curtis Karimi MD Epigastric pain 02/11/2024 2:20 PM EST Office Visit Gastroenterology - [address] [facility] [address] [place] [address] Alice Shukla, SAL Epigastric pain (Primary Dx); Nausea and vomiting, unspecified vomiting type from Last 3 Months Immunizations Name Administration Dates Next Due Influenza trivalent, 0.5mL, preservative free (Fluarix; FluLaval; Fluzone) ages 6mo and older (Afluria) 3 years and older 2019 Pneumococcal conjugate 13 va lent (Prevnar 13, PCV13) 2mo and older 09/15/2015 Pneumococcal polysaccharide 23 valent (Pneumovax 23) 2yo and older 09/20/2016 Td Tetanus diptheria (Tdvax) 7yo and older 04/08 Tdap Tetanus diptheria acell ular pertussis (Boostrix; Adacel) 7yo and older 11/06/2017 Surgical History Surgery Date Site/Laterality Comments CHOLECYSTECTOMY PROCEDURE: HISTORICAL CHOLECYSTECTOMY SALPINGOOPHORECTOMY 11/29/2017 Right PROCEDURE: ND LAPAROSCOPY W/RMVL ADNEXAL STRUCTURES HYSTERECTOMY 03/12/1998 PROCEDURE: HISTORICAL HYSTERECTOMY OTHER SURGICAL HISTORY Left PROCEDURE: ND COCHLEAR DEVICE IMPLANTATION W/WO MASTOIDECTOMY BLADDER SUSPENSION 09/01/2011 PROCEDURE: HISTORICAL BLADDER SUSPENSION; COMMENT: Bladder Sling OTHER SURGICAL HISTORY 09/10/2019 Right PROCEDURE: ND THORACOSCOPY W/DX WEDGE RESEXN ANATO LUNG RESEXN; COMMENT: R LL wedge resection w/ lymphadenectomy, Dr Oliveros COLONOSCOPY 11/30/2015 PROCEDURE: HISTORICAL COLONOSCOPY; COMMENT: Dr Helton UPPER GASTROINTESTINAL ENDOSCOPY 10/17/2017 PROCEDURE: ND UPPER GI ENDOSCOPY PERFORMED Medical History Medical History Date Comments GERD (gastroesophageal reflux disease) 05/25/2017 DX:GERD (gastroesophageal reflux disease) RA (rheumatoid arthritis) ([facility]) 03/06/2017 DX:RA (rheumatoid arthritis) (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) Osteopenia 12/12/2019 DX:Osteopenia Migraine with aura 12/12/2019 DX:Migraine w ith aura Retinal emboli 12/12/2019 DX:Retinal embol i CAD (coronary artery disease) 12/12/2019 DX :CAD (coronary artery disease) History of pituitary adenoma 12/12/2019 DX: History of pituitary adenoma Allergic rhinitis 12/12/2019 DX:Allergic rh initis Tubular adenoma 12/12/2019 DX:Tubular adeno ma Spondylolisthesis at L5-S1 level 12/12/2019 DX:Spondylolisthesis at L5-S1 level Vesicular eczema of hands and feet 12/12/2019 DX:Vesicular eczema of hands and feet Pulmonary emphysema (CMS/HCC) 03/06/2017 DX :Pulmonary emphysema (HCC) Tobacco abuse 03/06/2017 DX:Tobacco abuse Family History Medical History Relation Name Comments Lung cancer Father 77, COPD - Smoker, Diabetes, Arthritis Cervical cancer Maternal Grandmother Coronary artery disease Mother Hype rlipidemia, skin cancer Breast cancer Mother's side Aunt, ag e 38 Relation Name Status Comments Father Maternal Grandmother Mother Mother's side Social History Tobacco Use Types Packs/Day Years [...] Orientation Straight 04/09/2024 12 :23 PM EST Obstetrics History Last Filed Vital Signs Vital Sign Reading Time Taken Comments Blood Pressure 110/64 05/02/2023 1:53 PM EST Sit ting L Arm Pulse 73 05/02/2023 1:53 PM EST Temperature - - Respiratory Rate - - Oxygen Saturation - - Inhaled Oxygen Concentration - - Weight 75.3 kg (166 lb) 02/11/2024 2:05 PM EST Height 170.2 cm (5' 7 ) 02/11/2024 2:05 PM EST Body Mass Index 26 02/11/2024 2:05 PM EST Plan of Treatment Upcoming Encounters Date Type Department Care Team (Late st Contact Info) Description 06/16/2024 8:15 AM EDT Appointment [facility] Nuclear Medicine [address] [place] [address] Health Maintenance Due Date Last Done Comments Hepatitis A Vaccines (1 of 2 - Risk 2-dose series) 1983 Cervical Cancer Screening: Pap Smear 1985 Zoster Vaccines (1 of 2) 2014 COVID-19 Vaccine (3 - Pfizer risk series) 08/27/2020 07/30/2020, 07/09/2020 Pneumococcal Vaccine: 50+ Years (3 of 3 - PCV20 or PCV21) 09/20/2021 09/20/2016, 09/15/2015 Pneumococcal Vaccine: Pediatrics (0 to 5 Years) and At-Risk Patients (6 to 64 Years) (3 of 3 - PCV20 or PCV21) 09/20/2021 09/20/2016, 09/15/2015 Cholesterol Screening (Lipid Panel) 02/18/2022 Colorectal Cancer Screening: Colonoscopy 02/18/2022 Depression Screening 02/18/2022 HIV Screening 02/18/2022 Social Influencers of Health Screening 02/18/2022 Influenza Vaccine (#1) 2023 , 11/21/2021, 02/04/2020, Additional history exists Breast Cancer Screening 03/20/2024 03/20/2022 Hepatitis B Vaccines (1 of 3 - Risk 3-dose series) 2024 RSV Immunization Patients 60+ Years Old (1 - Risk 60-74 years 1-dose series) 2024 Hypertension/CHF/CAD Annual BMP Blood Test 02/10/2025 02/11/2024, 10/29/2023, 07/31/2023, Additional history exists DTaP,Tdap,and Td Vaccines (4 - Td or Tdap) 04/08/2028 04/08/2018, 11/06/2017, 11/07/2007 Hepatitis C Screening Completed 02/22/2023 Lung Cancer Screening (Low Dose CT) Discontinued 11/19/2023, 08/01/2022, 08/20/2020 HIB Vaccines Aged Out No longer eligi ble based on patient's age to complete this topic HPV Vaccines Aged Out No longer eligi ble based on patient's age to complete this topic IPV Vaccines Aged Out No longer eligi ble based on patient's age to complete this topic MMR Vaccines Aged Out No longer eligi ble based on patient's age to complete this topic Meningococcal ACWY Vaccine Aged Out N o longer eligible based on patient's age to complete this topic Meningococcal B Vacine Aged Out No lo nger eligible based on patient's age to complete this topic RSV Immunization Patients Under 20 months Aged Out No longer eligible based on patient's age to complete this topic Varicella Vaccines Aged Out No longer eligible based on patient's age to complete this topic Procedures Procedure Name Priority Date/Time Associated Diagnosis Comments EXTERNAL ENDOSCOPY REPORT Routine 04/01/2024 1:34 PM EST TISSUE EXAM Routine 04/01/2024 Epigastric pain CBC WITH AUTO DIFFERENTIAL Routine 02/11/2024 3:22 PM EST Routine general medical examination at a [facility] care facility LIPASE Routine 02/11/2024 3:22 PM EST Routine general medical examination at a [facility] care facility AMYLASE Routine 02/11/2024 3:22 PM EST Routine general medical examination at a [facility] care facility COMPREHENSIVE METABOLIC PANEL Routine 02/11/2024 3:22 PM EST Routine general medical examination at a [facility] care facility CBC AND DIFFERENTIAL Routine 02/11/2024 3:22 PM EST Routine general medical examination at a health care facility CT LUNG SCREENING LOW DOSE Routine 11/19/2023 5:25 AM EDT Encounter for screening for malignant neoplasm of respiratory organs from Last 3 Months or Most Recently Relevant to Health Maintenance Results * External Endoscopy (04/01/2024 1:34 PM EST) Anatomical Region Laterality Modality Endoscopy us Historical Provider GI~PROCEDURE ORDERABLES F inal Result * Tissue Exam (04/01/2024) Final Diagnosis A. [...] above diagnosis. Control stains appropriately. 2:42 PM EST [facility] Gross Description A. Small Intestine, Duodenum, [...] four pieces, multiple levels. dvb/DG 2:42 PM EST [facility] Disclaimer NOTE: The immunohistochemical tests and in situ hybridization tests were developed and their performance characteristics were determined by [facility]. They have not [...] formalin fixed and paraffin embedded. 2:42 PM EST [facility] Tissue Stomach structure / Unknown 04/01/2024 04/01/2024 2:59 PM EST Tissue specimen (specimen) Stomach structure / Unknown 04/01/2024 04/01/2024 2:59 PM EST us Curtis Karimi MD LAB PATHOLOGY ORDERABLES Shannon lai Result [facility] [address] [place] [address], * (ABNORMAL) CBC auto differential (02/11/2024 3:22 PM EST) WBC 7.4 4.8 - 10.8 K/mcL LAB HEMETOLOGY METHOD 02/11/2024 4:38 PM EST [facility] RBC 4.40 3.80 - 4.80 M/mcL LAB HEMETOLOGY METHOD 02/11/2024 4:38 PM EST [facility] Hemoglobin 13.3 11.5 - 16.0 g/dL LAB HEMETOLOGY METHOD 02/11/2024 4:38 PM [facility] Hematocrit 41.6 35.0 - 47.0 % LAB HEMETOLOGY METHOD 02/11/2024 4:38 PM [facility] MCV 95.4 79.0 - 98.0 FL LAB HEMETOLOGY METHOD 02/11/2024 4:38 PM EST [facility] MCH 30.5 27.0 - 32.0 pcg LAB HEMETOLOGY METHOD 02/11/2024 4:38 PM [facility] MCHC 32.0 32.0 - 37.0 g/dL LAB HEMETOLOGY METHOD 02/11/2024 4:38 PM EST [facility] RDW 12.4 11.0 - 15.0 % LAB HEMETOLOGY METHOD 02/11/2024 4:38 PM [facility] Platelets 308 130 - 400 K/mcL LAB HEMETOLOGY METHOD 02/11/2024 4:38 PM [facility] MPV 11.1(H) 7.0 - 11.0 FL LAB HEMETOLOGY METHOD 02/11/2024 4:38 PM [facility] NRBC 0.0 <1.0 % LAB HEMETOLOGY METHOD 02/11/2024 4:38 PM [facility] NRBC Absolute 0.00 <0.10 K/mcL LAB HEMETOLOGY METHOD 02/11/2024 4:38 PM [facility] Neutrophils Relative 47.9 % LAB HEMETOLOGY METHOD 02/11/2024 4:38 PM [facility] Lymphocytes Relative 41.8 % LAB HEMETOLOGY METHOD 02/11/2024 4:38 PM [facility] Monocytes Relative 7.5 % LAB HEMETOLOGY METHOD 02/11/2024 4:38 PM [facility] Eosinophils Relative 2.0 % LAB HEMETOLOGY METHOD 02/11/2024 4:38 PM [facility] Basophils Relative 0.4 % LAB HEMETOLOGY METHOD 02/11/2024 4:38 PM [facility] Immature Granulocytes Relative 0.4 % LAB HEMETOLOGY METHOD 02/11/2024 4:38 PM [facility] Neutrophils Absolute 3.52 1.50 - 7.00 K/mcL LAB HEMETOLOGY METHOD 02/11/2024 4:38 PM [facility] Lymphocytes Absolute 3.07 1.00 - 5.00 K/mcL LAB HEMETOLOGY METHOD 02/11/2024 4:38 PM [facility] Monocytes Absolute 0.55 0.20 - 1.00 K/mcL LAB HEMETOLOGY METHOD 02/11/2024 4:38 PM [facility] Eosinophils Absolute 0.15 0.00 - 0.50 K/mcL LAB HEMETOLOGY METHOD 02/11/2024 4:38 PM [facility] Basophils Absolute 0.03 0.00 - 0.20 K/mcL LAB HEMETOLOGY METHOD 02/11/2024 4:38 PM [facility] Immature Granulocytes Absolute 0.03 0.00 - 0.03 K/mcL LAB HEMETOLOGY METHOD 02/11/2024 4:38 PM EST [facility] Blood Venous blood specimen / Unknown Venipuncture / Unknown 02/11/2024 3:22 PM EST 02/11/2024 4:11 PM EST us Alice Shukla PLANT RELIABILITY ENGINEER LAB BLOOD ORDERABLES Final Re sult [facility] [address] [place] [address], [place] [phone] * Lipase (02/11/2024 3:22 PM EST) Lipase 37 13 - 75 unit/L LAB CHEMISTRY METHOD 02/11/2024 5:04 PM EST [facility] Blood Venous blood specimen / Unknown Venipuncture / Unknown 02/11/2024 3:22 PM EST 02/11/2024 4:07 PM EST us Alice Shukla PLANT RELIABILITY ENGINEER LAB BLOOD ORDERABLES Final Re sult Performing Organization Address City/[facility]/ZIP Co de Phone Number [facility] [address] [place] [address], [place] [phone] * Amylase (02/11/2024 3:22 PM EST) Amylase 43 25 - 115 unit/L LAB CHEMISTRY METHOD 02/11/2024 5:04 PM EST [facility] Blood Venous blood specimen / Unknown Venipuncture / Unknown 02/11/2024 3:22 PM EST 02/11/2024 4:07 PM EST us Alice Shukla PLANT RELIABILITY ENGINEER LAB BLOOD ORDERABLES Final Re sult [facility] [address] [place] [address], [place] [phone] * (ABNORMAL) Comprehensive metabolic panel (02/11/2024 3:22 PM EST) Sodium 141 133 - 145 mmol/L LAB CHEMISTRY METHOD 02/11/2024 5:07 PM [facility] Potassium 3.8 3.5 - 5.5 mmol/L LAB CHEMISTRY METHOD 02/11/2024 5:07 PM [facility] Chloride 104 96 - 110 mmol/L LAB CHEMISTRY METHOD 02/11/2024 5:07 PM [facility] CO2 29 21 - 32 mmol/L LAB CHEMISTRY METHOD 02/11/2024 5:07 PM [facility] Anion Gap 8 3 - 11 LAB CHEMISTRY METHOD 02/11/2024 5:07 PM [facility] Glucose 111(H) 70 - 100 mg/dL LAB CHEMISTRY METHOD 02/11/2024 5:07 PM [facility] BUN 16 5 - 25 mg/dL LAB CHEMISTRY METHOD 02/11/2024 5:07 PM [facility] Creatinine 0.65 0.50 - 1.10 mg/dL LAB CHEMISTRY METHOD 02/11/2024 5:07 PM [facility] eGFR 102 >=60 mL/min/1. 73m2 LAB CHEMISTRY METHOD 02/11/2024 5:07 PM [facility] Comment:Calculation based on the??Chronic Kidney Disease Epidemiology Collaboration (CKD-EPI) equation refit??without adjustment for race. BUN/Creatinine Ratio 24.6 LAB CHEMISTRY METHOD 02/11/2024 5:07 PM [facility] Calcium 9.6 8.5 - 10.5 mg/dL LAB CHEMISTRY METHOD 02/11/2024 5:07 PM [facility] AST (SGOT) 17 10 - 42 unit/L LAB CHEMISTRY METHOD 02/11/2024 5:07 PM [facility] ALT (SGPT) 27 10 - 60 unit/L LAB CHEMISTRY METHOD 02/11/2024 5:07 PM [facility] Alkaline Phosphatase 131(H) 42 - 121 unit/L LAB CHEMISTRY METHOD 02/11/2024 5:07 PM EST [facility] Total Protein 6.6 6.0 - 8.0 g/dL LAB CHEMISTRY METHOD 02/11/2024 5:07 PM EST [facility] Albumin 3.8 3.2 - 5.0 g/dL LAB CHEMISTRY METHOD 02/11/2024 5:07 PM EST [facility] Total Bilirubin 0.3 0.0 - 1.4 mg/dL LAB CHEMISTRY METHOD 02/11/2024 5:07 PM EST [facility] Blood Venous blood specimen / Unknown Venipuncture / Unknown 02/11/2024 3:22 PM EST 02/11/2024 4:07 PM EST Alice Shukla PLANT RELIABILITY ENGINEER LAB BLOOD ORDERABLES Final Re sult [facility] [address] [place] [address], * CT LUNG SCREENING LOW DOSE (11/19/2023 5:25 AM EDT) Anatomical Region Laterality Modality Computed Tomogra phy 11/17/2023 8:29 AM EDT Narrative 11/19/2023 5:25 AM EDT [facility] Diagnostic Imaging Department [address] [place] [address] Patient: ??GISEL CHINO ?/Age/Sex: 1965 - 58 - F Unit#: ??[id number] ? Location/Status: ??SPDICATLS/REG CLI ? Mnemonic/Ordering Site: ??CTLUNGLD/SPCT Ordering Physician: ??BLAS OLIVEROS MD CT Lung Screening Low Dose - 11/17/23 - 837 Report Status:Signed Indication: Greater than 20 total pack-year smoking history, asymptomatic current smoker Technique: Low-dose CT scan of the chest obtained as a lung cancer screening study. Multiplanar reformatted images were obtained. ??Dose reduction technique: ASIR (Adaptive statistical iterative reconstruction) and/or AEC (automated exposure control) DLP: ??123.25 mGy-cm COMPARISON: October 2022, July 2022, July 2021. FINDINGS: Lack of intravenous contrast limits evaluation of the cesar, vascular structures and visualized abdominal viscera. Lungs/airways: Secretions within the trachea. ??Bronchial wall thickening. Postsurgical appearance of the right lower lobe. ??Emphysematous changes. Biapical pleural-parenchymal scarring. ??Calcified granulomata. Atelectasis/scarring at the lung bases as well as in the lingula and right middle lobe. 4 mm solid nodule right lung apex (series 3, image 37); similar dating back to July 2022 and increased in size from July 2021 (previously 3 mm) Patchy opacity in the anterior aspect of the left upper lobe (series 3, image 114); similar to October 2022 and new from July 2022. ??New, multiple scattered groundglass opacities in the lung bases (series 3, image 201; series 3, image 206; series 3, image 227) in keeping with postinfectious/postinflammatory process. Base of the neck, mediastinum, heart, chest wall, vessels: ??The assessment of hilar lymphadenopathy is difficult without the use of IV contrast. ??No enlarged hilar lymphadenopathy. ??Thoracic aortic and coronary artery calcifications. ??The heart is not enlarged. Upper abdomen: This study was performed without contrast and with lower than standard dose. These factors reduce the sensitivity for detection of small lesions in the upper abdomen. Status post cholecystectomy. Bones/soft tissues: Unremarkable IMPRESSION: No suspicious pulmonary nodules. ??Scattered groundglass opacities predominantly at the lung bases in keeping with postinfectious/postinflammatory process. Lung RADS 2: Benign Appearance or Behavior - Continue annual screening with LDCT in 12 months. Dictating Physician: ??AGUS MUNROE MD Electronically Signed by: ??AGUS MUNROE MD Dic Date/Time: ??11/19/23509 Sign date/Time: ??11/19/23524 Procedure Note Agus Munroe MD - 12/26/2023 [facility] Diagnostic Imaging Department [address] [place] [address] Patient: GISEL CHINOO.B./Age/Sex: 1965 - 58- F Unit#: [id number] Location/Status: SPDICATLS/REG CLI Mnemonic/Ordering Site: [facility] Ordering Physician: BLAS OLIVEROS MD CT Lung Screening Low Dose - 11/17/23 - 837 Report Status:Signed Indication: Greater than 20 total pack-year smoking history,asymptomatic current smoker Technique: Low-dose CT scan of the chest obtained as a lung cancerscreening study. Multiplanar reformatted images were obtained. Dose reductiontechnique: ASIR (Adaptive statistical iterative reconstruction) and/or AEC(automated exposure control) DLP: 123.25 mGy-cm COMPARISON: October 2022, July 2022, July 2021. FINDINGS: Lack of intravenous contrast limits evaluation of the cesar,vascular structures and visualized abdominal viscera. Lungs/airways: Secretions within the trachea. Bronchial wallthickening. Postsurgical appearance of the right lower lobe. Emphysematous changes. Biapical pleural-parenchymal scarring. Calcified granulomata. Atelectasis/scarring at the lung bases as well as in the lingula andright middle lobe. 4 mm solid nodule right lung apex (series 3, image 37); similar datingback to July 2022 and increased in size from July 2021 (previously 3 mm) Patchy opacity in the anterior aspect of the left upper lobe (series 3,image 114); similar to October 2022 and new from July 2022. New, multiplescattered groundglass opacities in the lung bases (series 3, image 201; series 3,image 206; series 3, image 227) in keeping withpostinfectious/postinflammatory process. Base of the neck, mediastinum, heart, chest wall, vessels: The assessmentof hilar lymphadenopathy is difficult without the use of IV contrast. Noenlarged hilar lymphadenopathy. Thoracic aortic and coronary arterycalcifications. The heart is not enlarged. Upper abdomen: This study was performed without contrast and with lowerthan standard dose. These factors reduce the sensitivity for detection ofsmall lesions in the upper abdomen. Status post cholecystectomy. Bones/soft tissues: Unremarkable IMPRESSION: No suspicious pulmonary nodules. Scattered groundglass opacitiespredominantly at the lung bases in keeping with postinfectious/postinflammatoryprocess. Lung RADS 2: Benign Appearance or Behavior - Continue annual screeningwith LDCT in 12 months. Dictating Physician: AGUS MUNROE MD Electronically Signed by: AGUS MUNROE MD Dic Date/Time: 11/19/23509 Sign date/Time: 11/19/23524 Blas Oliveros MD IMG CT PROCEDURES Final Result from Last 3 Months or Most Recently Relevant to Health Maintenance Insurance [facility] [place]ICA[place] - [place] Care Teams Clutch Mechanic Relationship Specialty Start Date End Date Manav Sanford MD [address] [address] PCP - General Family Medicine 04/07/24
--- OUTSIDE RECORDS SUMMARY | 2024-05-06 09:42 | XMS_ITS | Continuity of Care Document ---
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 Pavon, [facility] 4 14:37:59 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 DA Pavon, [facility] 4 14:37:59 Hyperpro lactinem ia 503761489 Completed 201908/16/2022 Lee Jimenez MD [address] [address], [place], [address] , [facility] 3 09:54:18 Chronic neck pain 52402240229 07 Completed 202001/19/2023 Lee Jimenez MD [address] [address], [place], [address] , [facility] 3 11:13:43 Exposure to SARS-CoV -2 Completed 202002/11/2021 Removal Reason: Problem marked historic al by user [email or web address] 5 from the COVID-19 watch flag [facility]a [facility] 1 08:41:49 History of SARS-CoV -2 [id number] 5079155 Completed 202106/03/2021 DA Gonzalez, [facility] 2 13:04:21 Candidia sis of mouth 75911998 Active 2021 DA Pavon, [facility] 4 14:38:00 COVID-19 172475375 Completed 202108/16/2022 Lee Jimenez MD [address] [facility] [address], [place], [address] , [facility] 3 07:14:19 Ptosis of right upper eyelid 08040435395 9100 Completed 202201/19/2023 Lee Jimenez MD [address] [address], [place], [address] , [facility] 3 11:15:25 Smoker 69759811 Completed 202208/16/2022 Lee Jimenez MD [address] [facility] [address], [place], [address] , [facility] 3 07:16:12 Hyperpro lactinem ia 531266884 Active 2022 DA Pavon, [facility] 4 14:37:59 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 77051395425 Active 2019 DA Pavon, [facility] 4 14:37:59 Otitis media of bilatera l ears 58717895539 25378 Active 2016 DA Pavon, [facility] 4 14:37:59 Degenera tive joint disease involvin g multiple joints 257374634 Active 2023 DA Pavon, [facility] 4 14:37:59 Patient encounte r status 624395376 Active 2023 DA Pavon, [facility] 4 14:37:59 Arthriti s 8184799 Active 2022 DA Pavon, [facility] 4 14:37:59 History of procedur e 681620352 Active 2017 DA Pavon, [facility] 4 14:37:59 Iritis 10192678 Active 2023 DA Pavon, [facility] 4 14:38:00 Pneumoni a 509922495 Completed 202304/02/2024 RECORDED 12/07/19 12 9:16AM BY WILLIAM BISWAS MA, ANNOTATI ON/ADDEN DUM Lee Jimenez MD [address] [facility] [address], [place], [address] , [facility] 5 06:58:18 Fever 095822461 Active 2023 Nette Oates, [facility] [address] [facility] [address], [place], [address] , [facility] 4 13:16:01 Acute exacerba tion of chronic obstruct lupillo pulmonar y disease 767166345 Active 2023 Nette Oates, [facility] [address] [facility] [address], [place], [address] , [facility] 4 13:24:38 Prediabe ned 740808437 Active 2023 Lee Jimenez MD [address] [facility] [address], [place], [address] , [facility] 4 14:15:54 Hemipleg ia and/or hemipare sis followin g stroke 37737805741 107 Active 2024 Parag Torres PA-C [address] [facility] [address], [place], [address] , [facility] 5 14:21:24 Nicotine dependen ce 20060814 Active 2024 Parag Torres PA-C [address] [facility] [address], [place], [address] , [facility] 5 14:22:12 Problem Notes None recorded. Procedures Surgical History Date Name Laterality Status Provider Name and Address Organization Details Recorded Time 024 Date of Last Colonoscopy completed Irma Escalera MA [facility] 03/10/2024 14:03:37 024 Colonoscopy completed Dyana Menjivar [facility] 04/17/2023 10:42:23 023 arthroscopy of shoulder completed Lee Jimenez MD [address], [place], [address], [facility] 01/19/2023 11:17:20 023 arthroscopy of shoulder completed Dyana Menjivar [facility] 12/01/2022 10:45:07 023 Most Recent Mammogram completed Yun Myers [facility] 03/21/2022 10:25:03 023 Mammogram Screening completed Yun Myers [facility] 03/21/2022 10:24:57 020 Bronchoscopy w/markers completed Lindsey Lopez [facility] 09/10/2019 15:18:00 018 salpingo-oophorect tasha completed William dominique MA [facility] 12/18/2017 14:08:07 018 Date of Last Pap Smear completed William dominique MA [facility] 10/28/2018 15:11:09 018 EGD completed Melissa Lepe [facility] 10/17/2017 15:11:18 016 Most Recent Bone Density completed Torie Xiong [facility] 10/04/2015 09:42:13 016 Dxa bone density jeaneth vrt fx completed William dominique MA [facility] 12/21/2016 09:39:46 014 Implant cochlear device completed Ermias Cunningham MD [address], [place], [address], [facility] 05/23/2020 14:09:42 012 Repair bladder defect completed William dominique MA [facility] 09/20/2016 09:42:29 999 Total Abdominal Hysterectomy completed William dominique MA [facility] 12/18/2017 14:07:46 991 Hysterectomy completed William dominique MA [facility] 01/16/2022 11:13:45 Cholecystectomy completed Nette Oates, [facility] [address] [facility] [address], [place], [address], [facility] 09/30/2013 15:08:23 ENT Surgery completed Nette Oates [facility] [address] [facility] [address], [place], [address], [facility] 09/30/2013 15:08:23 Imaging Results None recorded. Procedure Notes None recorded. Medical Equipment None Reported. Allergies Allergen ID Allergen Name Allergen Category Reaction Reaction Severity Criticality Documentation Date Start Date Code Code System Note Provider Name and Address Organization Details Recorded Time 00589 Humira medicatio n hives severe Not available 09/30/2013 48450 4 [facility] 2 13:13:26 85720 Remicade medicatio n Not available Not available Not available 12/12/2014 77807 0 [facility] 2 13:13:26 50475 procaine hydrochlo ride medicatio n Not available Not available Not available 09/20/2016 92553 8 [facility] 2 13:13:26 97289 adalimuma b medicatio n hives Not available Not available 04/16/20192016 93414 1 RxNorm DA Pike [facility] 2 13:13:26 11139 rituximab medicatio n hives other swelling Not available Not available Not available Not available 04/16/20192016 86591 1 RxNorm DA Pavon [facility] 4 13:54:22 27960 procaine medicatio n hives severe Not available 04/16/20192016 8701 RxNorm DA Pike, [facility] 2 13:13:26 70037 inflixima b medicatio n hives Not available Not available 04/16/20192016 49550 1 RxNorm DA Pike, [facility] 2 13:13:26 43170 nortripty line medicatio n Not available Not available Not available 08/03/20192019 7531 RxNorm Other react ions and sever ities : 'Ment al Statu s Valdovinos e'. DA Pavon, [facility] 4 13:54:22 34695 Depakote medicatio n arthralgi a (joint pain) Not available Not available 08/25/2019 99129 9 RxNorm DA Pike, [facility] 2 13:13:26 76081 Rituxan medicatio n anaphylax is Not available Not available 12/27/2021 30805 4 RxNorm William DA Bañuelos, [facility] 2 13:54:16 03606 lidocaine medicatio n Not available Not available Not available 03/07/2023 6387 RxNorm Alannah BalderaseLUZMA [facility] 3 10:28:55 58248 divalproe x sodium medicatio n Not available Not available Not available 03/21/20232019 78803 6 RxNorm DA Pavon [facility] 4 14:37:48 34492 cefuroxim e Not available itching Not available low 06/12/2023 2194 RxNorm Alannah Caporale, LUZMA lee [facility] 4 13:01:11 66120 ciproflox acin medicatio n hives Not available high 06/12/2023 2551 RxNorm AMARI Davis [address] [facility] [address], [facility] [place], [address], [facility] 4 13:12:[address] medicatio n headache Not available Not available 09/19/2023 38842 36 RxNorm heada jeronimo and extre me head fog Heather Short MA [facility], [facility] 4 14:00:55 Medications Name Sig Start Date Stop Date Status Note LastModified by Organization Details LastModified Time celecoxib 200 mg capsule TAKE 1 CAPSULE EVERY DAY BY ORAL ROUTE FOR 5 DAYS. 01/16 completed Not Available Not Available Not Available cyclobenz aprine 10 mg tablet 1 TABLET BY MOUTH DAILY AT SUPPER 07/03 completed Not Available Not Available Not Available amoxicill in 500 mg capsule Take 1 capsule 3 times a day by oral route. 09/16 completed Not Available Not Available Not Available azithromy efren 250 mg capsule DIRECTED 11/02 completed RECORDED 11/03/19 10 9:43AM BY HARIS LEIVA, MEDICATI ON AUTO-HARRISON CTIVATIO N;TAKE 2 PILLS BY MOUTH ON DAY 1, THEN 1 PILL DAILY ON DAYS 2-5. Not Available Not Available Not Available clotrimaz ole 10 mg jerry Take 1 tablet 5 times a day by oral route for 10 days. 08/01 completed Not Available Not Available Not Available silver sulfadiaz ine 1 % topical cream APPLY ONCE DAILY TO BURN ON HAND 08/23 completed RECORDED 08/30/19 12 11:26AM BY SILVER BENAVIDES MA, MEDICATI ON AUTO-HARRISON CTIVATIO N; Not Available Not Available Not Available neomycin- polymyxin -hydrocor t 3.5 mg/mL-10, 000 unit/mL-1 % ear solution FOUR TIMES DAILY 09/22 completed RECORDED 09/23/19 10 11:28AM BY HEATHER CID PA-C, MEDICATI ON AUTO-HARRISON CTIVATIO N; Not Available Not Available Not Available atorvasta tin 80 mg tablet TAKE 1 TABLET BY MOUTH AT BEDTIME *STOP ROSUVAST ATIN* active Not Available Not Available No t Available nystatin 100,000 unit/mL oral suspensio n Take 5 mL 4 times a day by oral route for 10 days. 08/25 completed Not Available Not Available Not Available venlafaxi ne ER 37.5 mg capsule,e xtended release 24 hr TAKE 1 CAPSULE BY MOUTH EVERY DAY active Not Available Not Available No t Available acetamino phen 325 mg tablet TAKE 3 TABLETS BY MOUTH EVERY 6 HOURS FOR 7 DAYS active Not Available Not Available No t Available prednison e 10 mg tablet TAKE 5TABS X 2 DYS, 4TABS X 2 DYS, 3TABS X 2 DYS, 2 TABS X 2 DYS 1 TAB X 2 DYS THEN RESUME 5MG DAILY 07/31 completed Not Available Not Available Not Available doxycycli ne hyclate 100 mg capsule Take 1 capsule twice a day by oral route for 10 days. 2015 active RECORDED 12/07/19 13 1:21PM BY HARIS MARSHALL, MEDICATI ON AUTO-HARRISON CTIVATIO N; Not Available Not Available Not Available cefuroxim e axetil 250 mg tablet 06/11 completed Not Available Not Available Not Available nicotine 14 mg/24 hr daily transderm al patch Apply 1 patch every day by transder mal route for 14 days. 03/10 completed Not Available Not Available Not Available ipratropi um 0.5 mg-albute rol 3 mg (2.5 mg base)/3 mL nebulizat ion soln INHALE 3 ML BY NEBULIZE R 4 TIMES A DAY NEEDED FOR WHEEZING /SHORTNE SS OF BREATH active Not Available Not Available No t Available Carafate 100 mg/mL oral suspensio n Take 10 mL 4 times a day by oral route as needed. 02/11 completed Not Available Not Available Not Available albuterol sulfate 2.5 mg/3 mL (0.083 %) solution for nebulizat ion PLEASE SEE ATTACHED FOR DETAILED DIRECTIO NS active Not Available Not Available No t Available ciproflox acin 750 mg tablet TAKE 1 TABLET BY MOUTH EVERY 12 HOURS FOR 10 DAYS 06/11 completed Not Available Not Available Not Available cefpodoxi me 200 mg tablet TAKE 1 TABLET BY MOUTH TWICE DAILY 05/12 completed Not Available Not Available Not Available azithromy efren 250 mg tablet TAKE 2 TABLETS BY MOUTH TODAY, THEN TAKE 1 TABLET DAILY FOR 4 DAYS 08/16 completed Not Available Not Available Not Available aspirin 325 mg tablet Take 1 tablet by oral route for 1 day. 2014 active given 1 tablet Not Available Not Available Not Available ibuprofen 800 mg tablet THREE TIMES DAILY NEEDED 08/23 completed RECORDED 08/30/19 12 11:26AM BY SILVER BENAVIDES MA, MEDICATI ON AUTO-HARRISON CTIVATIO N; Not Available Not Available Not Available nicotine (polacril ex) 2 mg gum EVERY 2 HRS PRN SMOKING CESSATIO N 12/25 completed RECORDED 12/26/19 13 9:50AM BY TOÑITO MEDINA MA, OFFICE VISIT; Not Available Not Available Not Available ofloxacin 0.3 % eye drops Instill 3 drops twice a day by ophthalm ic route as needed for 5 days. 02/12 completed Not Available Not Available Not Available tizanidin e 4 mg tablet Take 1 tablet every 6 hours by oral route for 10 days. 06/11 completed Not Available Not Available Not Available fluconazo le 150 mg tablet TAKE 1 TABLET BY MOUTH EVERY 72 HOURS NEEDED. 2024 active Not Available Not Available Not Avai lable benzonata te 200 mg capsule TAKE 1 CAPSULE BY MOUTH THREE TIMES A DAY NEEDED FOR 5 DAYS 03/21 completed Not Available Not Available Not Available sumatript an 100 mg tablet Take one by mouth at onset of headache . May repeat x 1 after 2 hours as needed. 03/30 completed Not Available Not Available Not Available cephalexi n 250 mg capsule TID 06/25 completed RECORDED 06/26/19 07 11:12AM BY MCKENNA FARRIS, MEDICATI ON AUTO-HARRISON CTIVATIO N; Not Available Not Available Not Available fluconazo le 200 mg tablet Take by oral route for 7 days. 09/16 completed Not Available Not Available Not Available meloxicam 15 mg tablet Take 1 tablet every day by oral route for 30 days. 05/10 completed Not Available Not Available Not Available sucralfat e 1 gram tablet TAKE 1 TABLET 3 TIMES A DAY BY ORAL ROUTE BEFORE MEAL(S) FOR 10 DAYS. 04/29 completed Not Available Not Available Not Available ibuprofen 200 mg capsule Take 4 {capsule }s twice a day by oral route as needed. 04/29 completed Not Available Not Available Not Available prednison e 20 mg tablet 2 TAB BY MOUTH DAILY X 3 DAYS AND THEN 1 TAB DAILY X 4 DAYS 03/06 completed Not Available Not Available Not Available Phenergan 25 mg tablet Q 8 HR PRN NAUSEA 10/21 completed RECORDED 10/22/19 08 10:57AM BY TESSA LINK, OFFICE VISIT; Not Available Not Available Not Available prednison e 5 mg tablet TAKE 1 TABLET BY MOUTH EVERY DAY active Not Available Not Available No t Available moxifloxa efren 400 mg tablet QD 06/21 completed RECORDED 06/25/19 10 11:26AM BY CAMILLA White MD, MEDICATI ON AUTO-HARRISON CTIVATIO N; Not Available Not Available Not Available Protonix 20 mg tablet,de layed release Take 2 tablets every day by oral route for 30 days. 10/28 completed Not Available Not Available Not Available topiramat e 25 mg tablet PLEASE SEE ATTACHED FOR DETAILED DIRECTIO NS active Not Available Not Available No t Available acetamino phen 300 mg-codein e 30 mg tablet TAKE 1 TABLET BY MOUTH EVERY 4 HOURS NEEDED FOR PAIN 03/21 completed Not Available Not Available Not Available clopidogr el 75 mg tablet Take 1 tablet every day by oral route as directed for 21 days. active Not Available Not Available No t Available fexofenad ine 180 mg tablet 180 mg by oral route. active Not Available Not Available No t Available calcium 600 mg (as carbonate )-vitamin D3 5 mcg (200 unit) tablet 1 {tbl} twice a day by oral route. active Not Available Not Available No t Available methotrex ate sodium 25 mg/mL injection solution Take 0.8 mL every week by injectio n route. 01/09 completed Not Available Not Available Not Available omeprazol e 40 mg capsule,d elayed release TAKE 1 CAPSULE BY MOUTH EVERY DAY 01/24 completed Not Available Not Available Not Available doxycycli ne monohydra te 100 mg tablet TAKE 1 TABLET BY MOUTH TWICE A DAY FOR 7 DAYS 05/12 completed Not Available Not Available Not Available tramadol 50 mg tablet Take 1 tablet every 6 hours by oral route as directed for 4 days. 10/28 completed Not Available Not Available Not Available acetamino phen 500 mg tablet TAKE 2 TABLETS EVERY 6 HOURS BY ORAL ROUTE NEEDED FOR 10 DAYS. 05/10 completed Not Available Not Available Not Available vancomyci n 125 mg capsule TAKE 1 CAPSULE EVERY 6 HOURS BY ORAL ROUTE FOR 10 DAYS. 01/10 completed Not Available Not Available Not Available acetamino phen ER 650 mg tablet,ex tended release Take 2 {tbl}s by oral route. 03/21 completed Not Available Not Available Not Available Macrobid 100 mg capsule Take 1 capsule every 12 hours by oral route for 14 days. 09/03 completed Not Available Not Available Not Available cyclopent olate 1 % eye drops INSTILL 1 DROP BY OPHTHALM IC ROUTE 3 TIMES EVERY DAY INTO THE RIGHT EYE FOR 1 WEEK THEN STOP 11/02 completed Not Available Not Available Not Available Joseph-24 300 mg capsule,e xtended release QD 09/08 completed RECORDED 09/09/19 11 3:35PM BY NATHANIEL VALDEZ, ANNOTATI ON/JAM VILLALOBOS; Not Available Not Available Not Available Tessalon Perles 100 mg capsule Take 1 capsule 3 times a day by oral route for 5 days. 03/21 completed Not Available Not Available Not Available rifampin 300 mg capsule TAKE 2 CAPS BY MOUTH THREE TIMES A WEEK FOR 10 DAYS. 04/16 completed Not Available Not Available Not Available Fluticaso ne Propionat e (Inhal) 50 mcg/BLIST inhl powd Inhale 1 inhalati on every day by inhalati on route. 11/12 completed Not Available Not Available Not Available amoxicill in 875 mg tablet BID 06/05 completed RECORDED 06/06/19 12 9:35AM BY CAMILLA White MD, MEDICATI ON AUTO-HARRISON CTIVATIO N; Not Available Not Available Not Available magnesium oxide 400 mg (241.3 mg magnesium ) tablet TAKE 1 TABLET BY MOUTH EVERY DAY 08/20 completed Not Available Not Available Not Available lorazepam 0.5 mg tablet 1 TAB BY MOUTH EVERY DAY DIRECTED , 1 HOUR BEFORE PROCEDUR E. MUST HAVE RIDE ON DAY OF PROCEDUR E 08/16 completed Not Available Not Available Not Available methotrex ate sodium 2.5 mg tablet TAKE 3 TABLETS BY MOUTH EVERY 7 DAYS. active Not Available Not Available No t Available prednison e 1 mg tablet DAILY 09/19 completed RECORDED 10/15/19 09 11:54AM BY VIVIEN BENAVIDES, LIZZIE, MEDICATI ON AUTO-HARRISON CTIVATIO N; Not Available Not Available Not Available betametha sone valerate 0.1 % topical cream TWO TIMES DAILY 05/01 completed RECORDED 05/01/19 13 11:30AM BY IRMA ESCALERA, OFFICE VISIT; Not Available Not Available Not Available ethambuto l 400 mg tablet TAKE 4 TABS BY MOUTH THREE TIMES A WEEK FOR 30 DAYS. 04/16 completed Not Available Not Available Not Available Depakote ER 500 mg tablet,ex tended release Take 1 tablet every day by oral route at bedtime for 90 days. 08/24 completed Not Available Not Available Not Available pantopraz ole 40 mg tablet,de layed release Take 1 tablet every day by oral route. 09/16 completed Not Available Not Available Not Available simvastat in 20 mg tablet Take 1 tablet every day by oral route. active Not Available Not Available No t Available nortripty line 10 mg capsule Take 2 capsules every day by oral route at bedtime. 08/02 completed 4.28.20 - stable at 1 tab qd Not Available Not Available Not Available esomepraz ole magnesium 40 mg capsule,d elayed release TAKE 1 CAPSULE EVERY DAY BY MOUTH BEFORE MEAL(S) FOR 30 DAYS. active Not Available Not Available No t Available triamcino lone acetonide 0.1 % topical ointment APPLY THIN COAT TO AFFECTED AREA TWICE A DAY 08/16 completed Not Available Not Available Not Available clotrimaz ole-betam ethasone 1 %-0.05 % topical cream APPLY TO AFFECTED AREA TWICE A DAY FOR 2 WEEKS 02/12 completed Not Available Not Available Not Available inflixima b 100 mg intraveno us solution EVERY 4 WEEKS active RECORDED 07/01/19 14 2:01PM BY WILLIAM BISWAS MA, OFFICE VISIT; Not Available Not Available Not Available methotrex ate sodium 5 mg tablet ONCE A WEEK 05/01 completed RECORDED 05/01/19 13 11:30AM BY IRMA ESCALERA, OFFICE VISIT; Not Available Not Available Not Available indometha efren 25 mg capsule TAKE 1 CAPSULE BY MOUTH THREE TIMES A DAY NEEDED FOR 30 DAYS 06/03 completed patient advised to hold Not Available Not Available Not Available nicotine 21 mg/24 hr daily transderm al patch Apply 1 patch every day by transder mal route as directed for 42 days. 2024 active Not Available Not Available Not Avai lable Advair Diskus 500 mcg-50 mcg/dose powder for inhalatio n 1 puff twice a day by inhalati on route. active Not Available Not Available No t Available nitroglyc agnieszka 0.4 mg sublingua l tablet Place 1 tablet by sublingu al route for 1 day. 2014 active given 1 tablet Not Available Not Available Not Available docusate sodium 100 mg capsule TAKE 1 CAPSULE BY MOUTH TWICE A DAY FOR 10 DAYS active Not Available Not Available No t Available budesonid e 0.5 mg/2 mL suspensio n for nebulizat ion Inhale 2 mL twice a day by inhalati on route as needed. active Not Available Not Available No t Available aspirin 81 mg chewable tablet Chew 1 tablet every day by oral route as directed for 30 days. 2024 active Not Available Not Available Not Avai lable folic acid 1 mg tablet TAKE 1 TABLET BY MOUTH EVERY DAY active Not Available Not Available No t Available monteluka st 10 mg tablet Take 1 tablet every day by oral route for 30 days. 05/10 completed Not Available Not Available Not Available codeine 10 mg-guaife nesin 100 mg/5 mL oral liquid TAKE 1 TEASPOON FUL BY MOUTH 4 TIMES DAILY NEEDED FOR COUGH FOR UP TO 14 DAYS. 08/16 completed Not Available Not Available Not Available ergocalci ferol (vitamin D2) 1,250 mcg (50,000 unit) capsule TAKE 1 CAPSULE BY MOUTH EVERY WEEK 09/18 completed Not Available Not Available Not Available ibuprofen 600 mg tablet Take 600 mg by oral route. 06/12 completed Not Available Not Available Not Available cefuroxim e axetil 500 mg tablet TWO TIMES DAILY 02/07 completed RECORDED 03/20/19 13 1:27PM BY ERMIAS CUNNINGHAM MD, MEDICATI ON AUTO-HARRISON CTIVATIO N; Not Available Not Available Not Available levofloxa efren 500 mg tablet Take by oral route for 10 days. 09/16 completed Not Available Not Available Not Available levofloxa efren 750 mg tablet TAKE 1 TABLET BY MOUTH EVERY 24 HOURS FOR 7 DAYS 08/19 completed Done after 08/17/21 Not Available Not Available Not Available methylpre dnisolone 4 mg tablets in a dose pack TAKE 6 TABLETS ON DAY 1 DIRECTED ON PACKAGE AND DECREASE BY 1 TAB EACH DAY FOR A TOTAL OF 6 DAYS 06/11 completed Not Available Not Available Not Available albuterol sulfate HFA 90 mcg/actua tion aerosol inhaler INHALE 2 PUFFS EVERY 6 HOURS NEEDED FOR COUGH/WH EEZING/D YSPNEA (RESCUE MED MAX 12 PUFFS/24 HRS) active Not Available Not Available No t Available Percocet 5 mg-325 mg tablet Take 1 tablet 3 times a day by oral route as needed for 7 days. 09/18 completed Not Available Not Available Not Available ketoconaz ole 2 % topical cream Apply by topical route for 60 days. 09/24 completed Not Available Not Available Not Available ondansetr on 4 mg disintegr ating tablet PLACE 1 TABLET EVERY 8 HOURS BY TRANSLIN GUAL ROUTE NEEDED FOR 2 DAYS, FOR NAUSEA AND VOMITING .. active Not Available Not Available No t Available fluticaso ne propionat e 50 mcg/actua tion nasal spray,[employer] INHALE 2 SPRAYS IN EACH NOSTRIL ONCE A DAY 08/25 completed Not Available Not Available Not Available fludrocor tisone 0.1 mg tablet TWO TIMES DAILY 07/27 completed RECORDED 07/28/19 11 10:22AM BY ERMIAS CUNNINGHAM MD, ANNOTATI ON/ADDEN DUM; Not Available Not Available Not Available doxycycli ne hyclate 100 mg tablet Take 1 tablet twice a day by oral route for 10 days. 03/01 /2022 completed Not Available Not Available Not Available loratadin e 10 mg tablet DAILY 07/21 completed RECORDED 07/22/19 10 2:26PM BY PEREZ MEDEROS ON/ADDEN DUM; Not Available Not Available Not Available Benadryl 50 mg/mL injection solution Take 1 mL every month by injectio n route. active With infusion medicati on Not Available Not Available Not Available mometason e 0.1 % topical cream DAILY 12/25 completed RECORDED 12/26/19 13 9:50AM BY TOÑIOT MEDINA MA, OFFICE VISIT; Not Available Not Available Not Available amoxicill in 875 mg-potass ium clavulana te 125 mg tablet TAKE 1 TABLET BY MOUTH TWICE A DAY FOR 10 DAYS 01/24 completed Not Available Not Available Not Available nicotine 7 mg/24 hr daily transderm al patch Apply 1 patch every day by transder mal route for 14 days. 03/10 completed Not Available Not Available Not Available tobramyci n 0.3 %-dexamet hasone 0.1 % eye drops,[employer] INSTILL 4 DROPS IN THE AFFECTED EAR TWICE A DAY FOR 7 DAYS 11/02 completed Not Available Not Available Not Available oxycodone 5 mg tablet TAKE 1 TABLET BY MOUTH EVERY 4 HOURS NEEDED FOR PAIN 10/02 completed Not Available Not Available Not Available Antipyrin e W/Benzoca ine 5.4 %-1.4 % ear solution Q 2 HOURS PRN EAR PAIN 07/21 completed RECORDED 07/22/19 10 2:26PM BY PEREZ MEDEROS ON/ADDEN DUM; Not Available Not Available Not Available albuterol (refill) 90 mcg/actua tion aerosol inhaler Inhale 2 puffs every 4-6 hours by inhalati on route as needed. 10/04 completed Not Available Not Available Not Available midodrine 10 mg tablet Take 1 tablet twice a day by oral route. active Not Available Not Available No t Available azithromy efren 500 mg tablet TAKE 1 TABLET BY MOUTH THREE TIMES A WEEK 07/03 completed Not Available Not Available Not Available ezetimibe 10 mg tablet TAKE 1 TABLET BY MOUTH EVERY DAY AT BEDTIME active Not Available Not Available No t Available Humira 40 mg/0.8 mL subcutane ous syringe kit EVERY OTHER WEEK active RECORDED 11/21/19 13 11:45AM BY HARIS MARSHALL, ANNOTATI ON/JAM DUM; Not Available Not Available Not Available codeine-g uaifenesi n oral syrup Q 4 HOURS PRN 08/28 completed RECORDED 08/31/19 11 8:22AM BY SCARLETT POOLE I, MEDICATI ON AUTO-HARRISON CTIVATIO N; Not Available Not Available Not Available nicotine (polacril ex) 2 mg buccal lozenge 1 LOZENGE BY MOUTH EVERY 2 HOURS, NEEDED FOR SMOKING CESSATIO N 07/03 completed Not Available Not Available Not Available methotrex ate sodium (PF) 25 mg/mL injection solution Take by injectio n route. 09/16 completed Not Available Not Available Not Available cyclobenz aprine 5 mg tablet Take 1 tablet 3 times a day by oral route as needed for 10 days. 06/12 completed Not Available Not Available Not Available rosuvasta tin 40 mg tablet Take 1 tablet every day by oral route. 09/16 completed Not Available Not Available Not Available zonisamid e 25 mg capsule TAKE 1 CAP AT BEDTIME FOR 1 WEEK THEN TAKE 2 AT BED TIME 11/02 completed Not Available Not Available Not Available escitalop stephanie 5 mg tablet Take 1 tablet every day by oral route for 30 days. 10/23 completed Not Available Not Available Not Available topiramat e 50 mg tablet TAKE 1 TABLET BY MOUTH TWICE A DAY 10/02 completed Not Available Not Available Not Available Readi-Cat 2 2.1 % (w/v), 2.0 % (w/w) oral suspensio n Take 450 mL twice a day by oral route as directed for 1 day. 05/10 completed Not Available Not Available Not Available clobetaso l 0.05 % shampoo APPLY A THIN LAYER BY TOPICAL ROUTE ONCE DAILY TO DRY SCALP LEAVE IN PLACE 15 MIN. THEN LATHER AND RINSE.. Use for one week, then as needed 03/30 completed Not Available Not Available Not Available Spiriva with HandiHale r 18 mcg and inhalatio n capsules Inhale 18 ugs by inhalati on route. 06/11 completed Not Available Not Available Not Available aspirin take 81mg daily 09/16 completed Not Available Not Available Not Available Flonase Q NARES QAM 07/21 completed RECORDED 07/22/19 10 2:26PM BY NATHANIEL VALDEZ, JUANAATI ON/ADDEN DUM; Not Available Not Available Not Available bacitraci n-polymyx in B 10/21 completed RECORDED 10/22/19 08 10:57AM BY TESSA LINK, OFFICE VISIT; Not Available Not Available Not Available Cyclogyl TID OD 08/[address] Jeuss Parisi Not Available Not Available Not Available albuterol sulfate DAILY 05/11 completed RECORDED 05/12/19 07 11:46AM BY DA JUSTICE, MEDICATI ON AUTO-HARRISON CTIVATIO N;THIS ORDER DISCONTI NUED PER MEDI-SPA N. Not Available Not Available Not Available ofloxacin TWO TIMES DAILY 08/27 completed RECORDED 10/05/19 13 10:04AM BY HEATHER CID PA-C, MEDICATI ON AUTO-HARRISON CTIVATIO N; Not Available Not Available Not Available prednison e 60MG qD W/10MG WEEKLY TAPER 03/[address] Jesus Williamson Not Available Not Available Not Available Cortispor in-TC RIGHT EAR TID 09/25 completed RECORDED 10/22/19 08 7:04AM BY MCKENNA FARRIS, MEDICATI ON AUTO-HARRISON CTIVATIO N; Not Available Not Available Not Available Botox every 3 months active Not Available Not Available No t Available Enbrel WEEKLY 2007 active RECORDED 05/30/19 08 2:02PM BY ALEXANDER ZAVALA MA, PEREZ ON/ADDEN DUM; Not Available Not Available Not Available Protonix 1 PO TWO TIMES DAILY active Not Available Not Available No t Available Meclizine Hcl Chewable TID PRN VERTIGO 06/15 completed RECORDED 06/26/19 12 9:35PM BY WILLIAM BISWAS MA, MEDICATI ON AUTO-HARRISON CTIVATIO N; Not Available Not Available Not Available nebulizer and compresso r QD 08/26 completed RECORDED 10/02/19 07 11:21AM BY DOMINIQUE Reina NP, MEDICATI ON AUTO-HARRISON CTIVATIO N;WITH SUPPLIES OF TUBING Not Available Not Available Not Available Albuterol Sulfate HFA Q 4HR/PRN active RECORDED 07/01/19 14 2:01PM BY WILLIAM BISWAS MA, OFFICE VISIT; Not Available Not Available Not Available varenicli ne tartrate 0.5 mg (11)-1 mg (42) tablets in a dose pack 03/10 completed Not Available Not Available Not Available Orencia (with maltose) 250 mg intraveno us solution 04/18 completed Not Available Not Available Not Available Humira Pen 07/21 completed RECORDED 07/22/19 10 2:26PM BY NATHANIEL VALDEZ, ANNOTATI ON/JAM DUM; Not Available Not Available Not Available Symbicort 160 mcg-4.5 mcg/actua tion HFA aerosol inhaler Inhale 2 puffs twice a day by inhalati on route. 05/12 completed Not Available Not Available Not Available budesonid e-formote rol HFA 80 mcg-4.5 mcg/actua tion aerosol inhaler INHALE 2 PUFFS INTO THE LUNGS 2 TIMES DAILY FOR 30 DAYS. active Not Available Not Available No t Available cholecalc iferol (vitamin D3) 1,250 mcg (50,000 unit) capsule TAKE 1 CAPSULE BY MOUTH ONE TIME PER WEEK FOR 90 DAYS 04/29 completed Not Available Not Available Not Available Durezol 0.05 % eye drops INSTILL 1 DROP IN THE RIGHT EYE EVERY HOUR WHILE AWAKE, DECREASE WEEKLY 02/12 completed Not Available Not Available Not Available GaviLyte- G 236 gram-22.7 4 gram-6.74 gram-5.86 gram oral solution 06/11 completed Not Available Not Available Not Available Actemra 200 mg/10 mL (20 mg/mL) intraveno us solution Inject 10 mL every month by intraven ous route. active Infusion for RA Monthly Not Available Not Available Not Available hydrocort isone sod succinate (PF) 100 mg/2 mL solution for injection 1 g every month by injectio n route. active Not Available Not Available No t Available Vitamin D3 50 mcg (2,000 unit) capsule Take 1 capsule every day by oral route for 90 days. 2024 active Not Available Not Available Not Avai lable roflumila st 500 mcg tablet TAKE 1 TABLET BY MOUTH EVERY DAY active Not Available Not Available No t Available Orencia 125 mg/mL subcutane ous syringe Inject 1 mL every month by subcutan eous route. 04/08 completed Not Available Not Available Not Available oxycodone 5 mg tablet,or al ONLY (not feeding tubes) 0 mg every 4 hours by oral route. 05/05 completed Not Available Not Available Not Available Combivent Respimat 20 mcg-100 mcg/actua tion solution for inhalatio n 1 PUFFS INHALATI ON 4 TIMES A DAY NEEDED FOR WHEEZING /SHORTNE SS OF BREATH active Not Available Not Available No t Available hydrocodo ne-homatr opine 5 mg-1.5 mg/5 mL (5 mL) oral syrup Take 5 mL every 4-6 hours by oral route as needed for 7 days. 11/29 completed Not Available Not Available Not Available Miriam-chace 8.6 mg tablet TAKE 2 TABLETS BY MOUTH AT BEDTIME NEEDED FOR CONSTIPA TION 10/02 completed Not Available Not Available Not Available cyclophos phamide 50 mg capsule Take 1 capsule 3 times a day by oral route. 08/25 completed Not Available Not Available Not Available Spiriva Respimat 2.5 mcg/actua tion solution for inhalatio n INHALE 2.5 MCG INTO THE LUNGS DAILY FOR 30 DAYS. 07/31 completed Not Available Not Available Not Available Praluent Pen 150 mg/mL subcutane ous pen injector Inject 1 mL by subcutan eous route as directed . 04/29 completed Not Available Not Available Not Available Repatha SureClick 140 mg/mL subcutane ous pen injector Inject 1 mL every 2 weeks by sub-q route for 28 days. active Not Available Not Available No t Available bupropion HCl 150 mg tablet,12 hr sustained -release( smoking deterrent ) TAKE 1 TABLET BY MOUTH TWICE A DAY 01/19 completed Not Available Not Available Not Available omeprazol e 20 mg delayed release,d isintegra ting tablet Take 1 tablet every day by oral route for 90 days. 01/24 completed Not Available Not Available Not Available Trelegy Ellipta 200 mcg-62.5 mcg-25 mcg powder for inhalatio n INHALE 1 PUFF DAILY AT THE SAME TIME EVERY DAY active Not Available Not Available No t Available QuickVue At-Home COVID-19 Test kit DIRECTED 07/03 completed Not Available Not Available Not Available Vazalore 81 mg capsule Take 1 {tbl} by oral route. 03/21 completed Not Available Not Available Not Available Paxlovid 300 mg (150 mg x 2)-100 mg tablets in a dose pack TAKE 3 TABLETS BY MOUTH TWICE A DAY DIRECTED FOR 5 DAYS 03/21 completed Not Available Not Available Not Available Vitals None Recorded Social History Question Answer Notes LastModified by Organizat ion Details LastModified Time Tobacco Smoking Status Current Every Day Smoker uses nicotine patch William Leo MA [facility], [facility] 12/19/2019 10:14:40 Do You Have An Advance Directive? Yes Information not available 01/31/2022 What Is Your Level Of Alcohol Consumption? None [email or web address] Information not available 09/30/2013 Is Blood Transfusion Acceptable In An Emergency? Yes Information not available 09/15/2015 What Is Your Level Of Caffeine Consumption? Moderate 3 Servings Daily; Coffee/iced Coffee Information not available 01/19/2023 How Much Tobacco Do You Chew? None Information not available 01/27/2015 Are You Currently Employed? Yes Information not available 05/12/2022 What Type Of Diet Are You Following? CARDIAC Low Sodium Information not available 03/22/2016 Which Illicit Or Recreational Drugs Have You Used? None Information not available 01/27/2015 Do You Or Have You Ever Used E-cigarettes Or Vape? 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 Yes Left Ear No Hearing, Right Ear 40% Hearing Information not available 01/31/2022 Legally Blind In One Or Both Eyes? No Information not available 01/31/2022 Live Alone Or With Others? With Others (Neri) Information not available 01/31/2022 Do You Take Precautions To Prevent Distracted Driving? Yes Information not available 09/15/2015 How Often Do You Need To Have Someone Help You When You Read Instructions, Pamphlets, Or Other Written Material From Your Doctor Or Pharmacy? Never Information not available 09/15/2015 Have You Served In The ? No Information not available 12/08/2015 Have You Or Anyone In Your Household Had Any Of The Following Symptoms In The Last 14 Days: Sore Throat, Cough, Chills, Body Aches For Unknown Reasons, Shortness Of Breath For Unknown Reasons, Loss Of Smell, Loss Of Taste, Fever At Or Greater Than 100 Degrees Fahrenheit? No Information not available 09/19/2019 Are You Or Anyone In Your Household A Health Care Provider Or Emergency Responder? No [email or web address] Information not available 09/19/2019 To The Best Of Your Knowledge Have You Been In Close Proximity To Any Individual Who Tested Positive For COVID-19? No [email or web address] Information not available 09/19/2019 Have You Recently Traveled To A COVID-19 High Risk Area Or Gathering In The Last 10 Days? No [email or web address] Information not available 09/24/2020 What Was The Date Of Your Most Recent Tobacco Screening? 04/02/2024 Information not available 04/02/2024 How Many Children Do You Have? 2 Information not available 08/20/2014 What Is Your Current Pack Years? [email or web address] ears Information not available 01/31/2022 Do You Use Protection During Sex? No Information not available 09/15/2015 Do You Use Your Seat Belt Or Car Seat Routinely? Yes Information not available 01/16/2022 Seat Belts Used Routinely Yes Information not available 01/31/2022 Are You Sexually Active? No Information not available 01/16/2022 Smoke Alarm In Home Yes Information not available 01/31/2022 Do You Have Smoke And Carbon Monoxide Detectors In Your Home? Yes Information not available 01/16/2022 At What Age Did You Start Smoking Tobacco? 13 Information not available 08/20/2014 Are You Passively Exposed To Smoke? Yes Information not available 01/27/2015 Do You Or Have You Ever Used Smokeless Tobacco? Never Used Smokeless Tobacco Information not available 10/28/2018 Do You Use Any Illicit Or Recreational Drugs? No Information not available 01/31/2022 Do You Use Sunscreen Routinely? No Information not available 01/16/2022 How Many Years Have You Smoked Tobacco? 45 Information not available 04/02/2024 Do You Or Have You Ever Used Any Other Forms Of Tobacco Or Nicotine? No Information not available 01/31/2022 Sex: Unknown Functional Status Question Answer Note LastModified by Organizat ion Details LastModified Time Are you able to walk? YESWOREST Information not available 01/31/2022 Are you able to care for yourself? Yes Information not available 01/27/2015 What is your exercise level? Moderate daily; walking Information not available 09/15/2015 Mental Status None recorded. Family History Relationship Description Onset Age of this Age Resolved Age Notes LastModified by Organization Details LastModified Time Father Arthritis [email or web address] s Not available 01/16/2022 11:13:42 Father Diabetes mellitus [email or web address] s Not available 01/16/2022 11:13:42 Father Chronic obstructive pulmonary disease bsolivanmatto s Not available 10/28/2018 15:01:11 Father Primary malignant neoplasm of lung 77 Not available 2021 13:39:35 Father Asthma bsolivanmatto s Not available 01/16/2022 11:13:42 Father Kidney disease [email or web address] s Not available 01/16/2022 11:13:42 Father Malignant tumor of lung bsolivanmatto s Not available 01/16/2022 11:13:42 Father Disorder of nervous system bsolivanmatto s Not available 01/16/2022 11:13:42 Mother Heart disease phelmuth Not available 2015 10:14:23 Mother Hypertensive disorder phelmuth Not available 2015 10:14:23 Mother Cerebrovascu lar accident bsolivanmatto s Not available 01/16/2022 11:13:42 Mother Anemia bsolivanmatto s Not available 01/16/2022 11:13:42 Maternal Aunt Malignant tumor of breast [email or web address] s Not available 01/16/2022 11:13:42 Maternal Grandmother Malignant tumor of cervix bsolivanmatto s Not available 01/16/2022 11:13:42 Maternal Grandmother Multiple sclerosis bsolivanmatto s Not available 01/16/2022 11:13:43 Maternal Grandmother Osteoporosis bsolivanmat to s Not available 01/16/2022 11:13:43 Son Arthritis bsolivanmatto s Not available 01/16/2022 11:13:43 Unspecified Relation Malignant tumor of cervix bsolivanmatto s Not available 01/16/2022 11:13:43 Unspecified Relation Chronic obstructive pulmonary disease bsolivanmatto s Not available 01/16/2022 11:13:43 Medical History Condition Response Coronary Artery Disease N Other N Gout N Kidney Stones N Blood Diseases N Hyperthyroidism N Breast Cancer N mrsa exposure N COPD Y Depression N Lung Disease Y Hypothyroidism N Defects or Inherited Disease N Developmental or Behavioral Disorders N Breast Problem N Anesthesia Complications N Headaches/Migraines Y Varicose Veins Y Anxiety Disorder N Muscle, Joint, or Bone Problems N Obesity N Vision or Eye Problems Y Arthritis Y Head Injury/Concussion N Polyps N Infertility N Mental Disorder N Congenital Anomalies N Acid Reflux (GERD) Y Cancer N Stroke N ADHD N Endometriosis N High Cholesterol Y Liver Disease N Fibromyalgia N Headaches N Kidney Disease N Heart Problems N Ear or Hearing Problems Y Hospitalizations Y Thyroid Problems N GI Problems Y Developmental Delay N Acne N Skin Problems N Eating Disorder N Anemia Y Constipation N Bladder Problems N Mental Illness N Ovarian Cancer N Diabetes N Bedwetting N Blood Transfusions N Seizures/Epilepsy N Heart Problems/Murmur N Tuberculosis N AIDS/HIV N Congestive Heart Failure (CHF) N Eczema N Diverticulitis N Abuse/Domestic Violence N Asthma Y Allergies Y Reflux/GERD Y Hepatitis N Heart Disease N Pulmonary Embolism N Hypertension N Osteoporosis Y Chicken Pox N Autism Spectrum Disorder (ASD) N Gynecological History Statement/Question Response Date of Last Pap Smear 11/06/2017 Current Control Method Hysterectom y Date of Last Colonoscopy 04/04/2023 Most Recent Mammogram 03/20/2022 Most Recent Bone Density 10/01/2015 Obstetrics History GPAL:G 0 P 0 0 0 0 Immunizations Vaccine Type Date Status Note Provider Nam e and Address Organization Details Recorded Time Influenza, split virus, quadrivalent, preservative 0 completed DA Pavon [facility] 03/10/2024 13:54:39 COVID-19, mRNA, LNP-S, PF, 30 mcg/0.3 mL dose 1 completed Not Available [facility] 03/20/2023 14:18:17 COVID-19, mRNA, LNP-S, PF, 30 mcg/0.3 mL dose 1 completed Not Available [facility] 03/20/2023 14:18:17 Influenza, recombinant, quadrivalent, PF [facility] 13:54:39 Influenza, split virus, quadrivalent, PF 6 completed Not Available [facility] 03/20/2023 14:18:17 Influenza, split virus, quadrivalent, PF 7 completed Not Available [facility] 03/20/2023 14:18:17 Td (adult), 2 Lf tetanus toxoid, preservative free, adsorbed 9 completed DA Pavon [facility] 03/10/2024 13:54:40 Influenza, split virus, quadrivalent, PF 0 completed DA Pavon [facility] 03/10/2024 13:54:40 Pneumococcal conjugate PCV 13 6 completed DA Pavon, [facility] 03/10/2024 13:54:40 pneumococcal polysaccharide PPV23 7 completed AD Pavon, [facility] 03/10/2024 13:54:40 Tdap 8 completed DA Pavon, [facility] 03/10/2024 13:54:40 Influenza, split virus, quadrivalent, PF 4 completed Not Available [facility] 03/20/2023 14:18:17 Influenza, split virus, quadrivalent, PF 2 completed Not Available [facility] 03/20/2023 14:18:17 Influenza, split virus, trivalent, PF 5 completed DA Last, [facility] 04/29/2024 10:33:44 Tdap 8 completed Not Available [facility] 03/20/2023 14:18:17 influenza, seasonal, intradermal, preservative free 2 completed Not Available [facility] 03/20/2023 14:18:17 Influenza, split virus, quadrivalent, PF 3 completed Lee Jimenez MD [address], [address], [facility] 01/19/2023 12:08:29 Past Encounters Encounter ID Performer Location Encounter Start Date Encounter Closed Date Diagnosis/Indication Diagnosis SNOMED-CT Code Diagnosis ICD10 Code Diagnosis Note [id number] Lee Jimenez MD Main Office [address] [address] 04/02/2024 15:32:00 04/03/2024 08:46:20 Osteopenia 306027888 M85.80 Bone density finding 385 578075 M85.89 Prediabetes 762365887 R7 3.03 Tobacco de pendence syndrome 56360680 F17.290 Vitamin D deficiency 347 47463 E55.9 Rheumatoid arthritis 698 79672 M06.9 cont. rheum follow up Alkaline p hosphatase above reference range 985592605 R74.8 C-reactive protein above reference range 2210753105 91957 R79.82 likely related to RA, and chronic smoking, cont regular screening with rheum. Pulmonary Mycobacterium avium complex infection 942597755 A31.0 Following up with pulmonolog ist as scheduled Chronic ob structive pulmonary disease 44225628 J44.9 Continue follow-up with pulmonolog ist as scheduled. Ankylosing spondylitis 4009124 M45.9 Followup with her rheumatolo gist regarding this. Unintentio nal weight gain 9000047988 37259 R63.5 [id number] Parag Torres PA-C Main Office [address] [facility] [place] [address] 04/25/2024 13:23:18 04/25/2024 14:59:05 Health Concerns Section Related Observation LastModified by Organization Detai ls LastModified Time None Recorded Concern Status LastModified by Organization Details LastModified Time None Recorded Payers Encounter Date Sequence Insurance Name Policy Number Policy Aiken Covered Member ID Aiken Member ID Guarantor Name 04/25/2024 1 [place] [id number] Neri Nicholson [id number] Gisel Leach 04/25/2024 2 [place] [facility] Gisel Leach [id number] Gisel Leach Notes Date Note Type Note Provider Name and Address Organization Details Recorded Time 04/25/2024 text/html Hospitalization Contact RecordReported bypatient.Follow UpHospital: [facility]; admit date: (Please enter in format 'MM/DD/YYYY') (04/22/2024); date of discharge: (Please enter in format 'MM/DD/YYYY') (04/25/2024); date of contact: (Please enter in format 'MM/DD/YYYY') (04/25/2024)Notes:Med icare covered inpatient stay? yes Medicare KORI with in 48 working hours? yes High Complexity code valid on or before:April Moderate Complexity code valid on or before: April HCP on file? no MOLST on file? no Discharge Summary available? yes 59 year old female with several comorbidities presented to [facility] with sudden onset of headache, associated symptoms including sudden vision loss, left sided facial drooping and left sided weakness. Patient admitted for further medical management concern for stroke. Stroke Alert protocol:MRI Brain- right thalamic lacunar infarct- no hemorrhagic changeright thalamic cva likely, small vessel disease per neurology Cardiology was consulted feels it was a blockage . PCP Heads UP:d/c with VNA serviceswill needs follow up on labswill be following up with Neurology arrange stroke clinic f/u and OP ZIO patch Patient is scheduled to see Parag on 04/29/2024 at 10:30amDiscussed case with PCP, noted patient is non compliant . Shipwright Supervisor KORI call regarding discharge status, no answer left detailed message on voice mail. Parag Torres PA-C [address] [facility] [address], [place], [address], [facility] 04/25/2024 14:59:01 OBGyn Episode No OBEpisode recorded.
== END 2024-05-06 09:50 | disposition home or self-care (01) ==
PROVIDERS: PCP Family Medicine; Visit Provider Internal Medicine Endocrinology, Diabetes & Metabolism
DX: E66.9 Obesity, unspecified (principal)
CPT/HCPCS: 99204

== ENCOUNTER → 2024-05-06 08:55 | Outpatient (BNVA) | payer BC, MEDICAID, SELFPAY | PROVIDERS: PCP Family Medicine; Visit Provider Internal Medicine Endocrinology, Diabetes & Metabolism ==

== ENCOUNTER 2024-06-17 09:24 | Outpatient (AMB) | payer BC, MEDICAID, SELFPAY ==
[2024-06-17 09:34] VITALS: BMI 25.7
--- NOTE | 2024-06-17 09:34 | A.OFFVIS_ITS ---
VS Expanded 06/17/24 09:34 06/17/24 14:23 Height 5 ft 7 in 5 ft 7 in Weight 164 lb 3.91 oz 164 lb BMI 25.7 25.7 Intake Visit Reasons: Obesity Allergies infliximab [From Remicade] Allergy (Verified 06/18/24 09:47) Anaphylaxis rituximab [From Rituxan] Allergy (Verified 06/18/24 09:47) Anaphylaxis novacaine Allergy (Mild, Uncoded 06/18/24 09:47) Hives Nutrition Presentation Details: Pt present for MNT for obesity with pre dm . Pt was referred by economic consultant Dr. Wong Pt presents with partner during this apt Pt reports having gained about 20 lbs in the past years had stroke April coffee cream no sugar Food frequency fruits: 0-1 /day fish : 0-1/d dairy yogurt fried foods 0-2/wk beverages: water 8 bottles/day , 8 oz soda smokes 1/2 ppd BS Monitoring Most Recent Diabetes Results: No Data to Display TWP-Svxsxai-Ak.Jeor Equation Height: 5 ft 7 in Weight: 164 lb Resting Metabolic Rate: 1350.57 Calculated Activity Level: Sedentary Calories Needed to Maintain Weight: 1620.68 Diagnosis Nutrition problem #1: food nutri know defi As related to (etiology) #1: diagnosis As evidenced by (sign/symptom) #1: knowledge deficit of diet [facility] Medical History (Updated 06/18/24 @ 10:31 by Ni Ledbetter NP) Pre-diabetes Obesity Anemia Smoker Rheumatoid arthritis Bronchitis COPD (chronic obstructive pulmonary disease) High cholesterol Surgical History Hx of shoulder surgery Hx of colonoscopy History of ear surgery History of lung surgery Hx laparoscopic cholecystectomy Family History Mother Heart disease Father Diabetes Lung cancer Rheumatoid arthritis Social History Patient Tobacco Use Status: Current everyday Tobacco user Tobacco use type: Cigarette Cigarettes Per Day: 2 Current occupational status: employed 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 Assessment & Plan Assessment & Plan (1) Pre-diabetes: Code(s): R73.03 - Prediabetes Category: Medical Plan: Wt: 74 Kg (07/04 ) Est kcal needs as per MSJ: 1600 (40% carb, 30% protein/fat) Est fluid needs as per 25-30 ml/d:2200 Est prot per day as per 1 g/kg bw: 74 Recommend fiber intake : 8-10 g per day and gradually increase to 25-28 g per day for women and 35-38 g for men or as tolerated Recommend sodium intake per day : less than 2000 mg Educated patient on: ( R = reviewed V = verbalizes understanding N/R = needs review N/A = not applicable * Food sources of carbohydrate, adequate serving sizes and its role in various health conditions: R * Differences between complex carbohydrates a simple carbohydrates, role of fiber in diet: R * Lean protein sources of foods: R * Differences between types of fats and role in diet (mono on saturated fat fatty acids, saturated fatty acids, trans fats): R V N/R * Food sources of sodium in salt and healthy modifications for heart health in kidney health: R V R/V * Vitamins and minerals: R V N/R * Healthy plate method concept: R * Physical activity: Benefits a precaution: R V N/R * Hypoglycemia protocol (rule of 15): R V N/R * Dietary prevention of Hyperglycemia: R Patient Instructions: HAve yogurt with fruit as bedtime snack Work on following healthy plat emethod (45 g carb per meal and 0-20 g carb as snack ) Coding Level of Care Code Nutr Indiv Intake (46131) Diagnoses Pre-diabetes R73.03 Time Spent (min) 30
--- OUTSIDE RECORDS SUMMARY | 2024-06-17 10:30 | XMS_ITS | Clinical Summary ---
Author Organization [facility] [address] [facility] Address [address] [place] [address] Phone Care Team Providers Care Us Administrative Law Judge Name Role Phone Manav Sanford MD Primary Care Provider [phone] Allergies Active Allergy Reactions Criticality Noted Date [...] mg tabletIndicatio ns:Chronic obstructive pulmonary disease, unspecified TAKE 1 TABLET BY MOUTH EVERY DAY [...] 04/07/2024 Telephone Gastroenterology - [address] [facility] [address] [place] [address] Jessica Osborne MA Results 04/01/2024 Lab Requisition [facility] - Main Lab [address] [facility] [place] [address] Curtis Karimi MD Epigastric pain from Last 3 Months Immunizations Name Administration [...] DX:GERD (gastroesophageal reflux disease) RA (rheumatoid arthritis) ([facility]) 03/06/2017 DX:RA (rheumatoid arthritis) ([facility]) 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 DX:Suze hlear implant in place; COMMENT: No MRI Hyperlipidemia 12/12/2019 DX:Hyperlipidemi a Mycobacterium avium infection ([facility]) 0 DX:Mycobacterium avium infection ([facility]) Osteopenia 12/12/2019 DX:Osteopenia Migraine with [...] 02/11/2024 2:05 PM EST Plan of Treatment Health Maintenance Due Date [...] 02/18/2022 Social Influencers of Health Screening 02/18/2022 Breast Cancer Screening 03/20/2024 03/20/2022 Hepatitis B Vaccines (1 of 3 - Risk 3-dose series) 2024 RSV Immunization Adult Patients (1 - Risk 60-74 years 1-dose series) 2024 Influenza Vaccine (Season Ended) 2024 01/19/2023, 11/21/2021, 02/04/2020, Additional history exists Hypertension/CHF/CAD Annual BMP Blood Test 02/10/2025 02/11/2024, [...] age to complete this topic Meningococcal B Vaccine Aged Out No l onger eligible based on patient's age to complete [...] EST TISSUE EXAM Routine 04/01/2024 Epigastric pain COMPREHENSIVE METABOLIC PANEL Routine 02/11/2024 3:22 PM [...] above diagnosis. Control stains appropriately. 2:42 PM [facility] Gross Description A. Small Intestine, [...] four pieces, multiple levels. dvb/DG 2:42 PM [facility] Disclaimer NOTE: The immunohistochemical tests and in situ hybridization tests were developed and their performance characteristics were determined by [facility]. They have not been [...] fixed and paraffin embedded. 2:42 PM EST [facility] Tissue Stomach structure / Unknown 04/01/2024 04/01/2024 2:59 PM EST Tissue specimen (specimen) Stomach structure / Unknown 04/01/2024 04/01/2024 2:59 PM EST us Curtis Karimi MD LAB PATHOLOGY ORDERABLES Shannon lai Result [facility] [address] [place] [address], * (ABNORMAL) Comprehensive metabolic panel (02/11/2024 3:22 PM EST) Sodium 141 133 - 145 mmol/L LAB CHEMISTRY METHOD 02/11/2024 5:07 PM [facility] Potassium 3.8 3.5 - 5.5 mmol/L LAB CHEMISTRY METHOD 02/11/2024 5:07 PM [facility] Chloride 104 96 - 110 mmol/L LAB CHEMISTRY METHOD 02/11/2024 5:07 PM [facility] CO2 29 21 - 32 mmol/L LAB CHEMISTRY METHOD 02/11/2024 5:07 PM [facility] Anion Gap 8 3 - 11 LAB CHEMISTRY METHOD 02/11/2024 5:07 PM [facility] Glucose 111(H) 70 - 100 mg/dL LAB CHEMISTRY METHOD 02/11/2024 5:07 PM [facility] BUN 16 5 - 25 mg/dL LAB CHEMISTRY METHOD 02/11/2024 5:07 PM [facility] Creatinine 0.65 0.50 - 1.10 mg/dL LAB CHEMISTRY METHOD 02/11/2024 5:07 PM [facility] eGFR 102 >=60 mL/min/1. 73m2 LAB CHEMISTRY METHOD 02/11/2024 5:07 PM [facility] Comment:Calculation based on the??Chronic Kidney Disease Epidemiology Collaboration (CKD-EPI) equation refit??without adjustment for race. BUN/Creatinine Ratio 24.6 LAB CHEMISTRY METHOD 02/11/2024 5:07 PM [facility] Calcium 9.6 8.5 - 10.5 mg/dL LAB CHEMISTRY METHOD 02/11/2024 5:07 PM [facility] AST (SGOT) 17 10 - 42 unit/L LAB CHEMISTRY METHOD 02/11/2024 5:07 PM [facility] ALT (SGPT) 27 10 - 60 unit/L LAB CHEMISTRY METHOD 02/11/2024 5:07 PM [facility] Alkaline Phosphatase 131(H) 42 - 121 unit/L LAB CHEMISTRY METHOD 02/11/2024 5:07 PM [facility] Total Protein 6.6 6.0 - 8.0 g/dL LAB CHEMISTRY METHOD 02/11/2024 5:07 PM [facility] Albumin 3.8 3.2 - 5.0 g/dL LAB CHEMISTRY METHOD 02/11/2024 5:07 PM [facility] Total Bilirubin 0.3 0.0 - 1.4 mg/dL LAB CHEMISTRY METHOD 02/11/2024 5:07 PM [facility] Blood Venous blood specimen / Unknown Venipuncture / Unknown 02/11/2024 3:22 PM EST 02/11/2024 4:07 PM EST Alice Shukla MEDICAL RECORD RETRIEVAL SPECIALIST LAB BLOOD ORDERABLES Final Re sult [facility] [address] [place] [address], [place] [phone] * CT LUNG SCREENING LOW DOSE (11/19/2023 5:25 AM EDT) Anatomical Region Laterality Modality Computed Tomogra phy 11/17/2023 8:29 AM EDT Narrative 11/19/2023 5:25 AM EDT [facility] Diagnostic Imaging Department [address] [place] [address] Patient: ??GISEL CHINO ?/Age/Sex: 1965 - 58 - F Unit#: ??[id number] ? Location/Status: ??SPDICATLS/REG CLI ? Mnemonic/Ordering Site: ??CTLUNGLD/SPCT Ordering Physician: ??BLAS OLIVEROS MD CT Lung Screening Low Dose - 11/17/23837 Report Status:Signed Indication: Greater than 20 total [...] Procedure Note Agus Munroe MD - 12/26/2023 [facility] Diagnostic Imaging Department [address] [place] [address] Patient: GISEL CHINO /Age/Sex: 1965 - 58- F Unit#: [id number] Location/Status: SPDICATLS/REG CLI Mnemonic/Ordering Site: CTLUNGLD/SPCT Ordering Physician: BLAS OLIVEROS MD CT Lung Screening Low Dose - 11/17/23837 Report Status:Signed Indication: Greater than 20 total [...] Most Recently Relevant to Health Maintenance Insurance [facility] MEDICAID - [place] Care Teams Us Administrative Law Judge Relationship Specialty Start Date End Date Manav Sanford MD [address] [phone] PCP - General Family Medicine 04/07/24
--- OUTSIDE RECORDS SUMMARY | 2024-06-17 10:30 | XMS_ITS | Encounter Summary ---
Author Organization [employer] Address [address] [place] [address] Care Team Providers Care Frame Gate Mortiser Operator Name Role Phone Manav Sanford MD Primary Care Provider [phone] Encounter Details Date Type Department Care Team ([facility] st Contact Info) Description 04/01/2024 Lab Requisition [facility] - Main Lab [address] Count Includes [facility] [place] [id number] Curits Karimi MD [address] [address] Epigastric pain Social History Tobacco Use Types [...] as of this encounter Plan of Treatment Not on file documented as of this encounter Procedures Procedure [...] above diagnosis. Control stains appropriately. 2:[address] [facility] Gross Description A. Small Intestine, [...] four pieces, multiple levels. dvb/DG 2:[address] [facility] Disclaimer NOTE: The immunohistochemical tests and in situ hybridization tests were developed and their performance characteristics were determined by [facility]. They have not been cleared [...] formalin fixed and paraffin embedded. 2:[address] [facility] Tissue Stomach structure / Unknown 04/01/2024 04/01/2024 2:59 PM EST Tissue specimen (specimen) Stomach structure / Unknown 04/01/2024 04/01/2024 2:59 PM EST us Curtis Karimi MD LAB PATHOLOGY ORDERABLES Shannon lai Result [facility] [address] [place] [address], [place] [phone] documented in this encounter Visit Diagnoses Diagnosis Epigastric pain Abdominal pain, epigastric documented in this encounter Care Teams Frame Gate Mortiser Operator Relationship Specialty Start Date End Date Manav Sanford MD [address] [address] PCP - General Family Medicine 04/07/24 documented as of this encounter
--- OUTSIDE RECORDS SUMMARY | 2024-06-17 10:30 | XMS_ITS | Clinical Summary ---
Author Organization [facility] Address [address] [place] [address] Care Team Providers Care Customer Advisor Name Role Phone Unavailable Primary Care Provider [...]
[2024-07-01 14:25] VITALS: BMI 25.7
== END 2024-06-17 10:16 | disposition home or self-care (01) ==
LOC: HO.ENCR 09:24
PROVIDERS: PCP Family Medicine; Visit Provider Dietitian, Registered
DX: R73.03 Prediabetes (principal)

== ENCOUNTER → 2024-06-17 09:24 | Outpatient (BNVA) | payer BC, MEDICAID, SELFPAY | PROVIDERS: PCP Family Medicine; Visit Provider Dietitian, Registered | DX: R73.03 Prediabetes (principal) | CPT/HCPCS: 97802 ==

== ENCOUNTER 2024-06-18 09:45 | Outpatient (AMB) | payer BC, MEDICAID, SELFPAY ==
--- NOTE | 2024-06-18 08:06 | A.OFFVIS_ITS ---
Vital Signs 06/18/24 09:46 Height 5 ft 7 in Weight 167 lb 1.766 oz BMI 26.2 BP 124/82 Blood Pressure Location Rt brachial Position Sitting Pulse 76 Pulse Source Pulse Oximeter Pulse Oximetry (%) 96 Oxygen Delivery Method Room Air Intake Visit Reasons: f/u prediabetes/ wt gain Intake Note: Patient presents today to establish treatment for Pre Diabetes and Weight Gain, last seen by DR Emile Wong: Last Diabetic eye exam was on: 05/2024 Random Glucose- 88 mg/dL, Today Undercutter Operator Required: No Accompanied by: Significant Other Allergies infliximab [From Remicade] Allergy (Verified 06/18/24 09:47) Anaphylaxis rituximab [From Rituxan] Allergy (Verified 06/18/24 09:47) Anaphylaxis novacaine Allergy (Mild, Uncoded 06/18/24 09:47) Hives HPI Comments Details: Patient is 59-year-old white female who was recently seen in consult by Dr. Wong for weight gain/prediabetes. She reports a recent A1c of 6.2% prior to patient. Was started on metformin 500mg and pioglitazone 15mg and has been taking both of these without side effect. She has a recent stroke and is currently going to Pt/OT. She met with a trim setter helper yesterday who recommended more frequent evenly spaced meals. Prior to meeting with a trim setter helper she was eating 1 meal later in the day and a yogurt earlier in the day. She is on chronic prednisone 5 mg for COPD. She has an upcoming bone density test ordered through her PCP and does take both calcium and vitamin-D supplements as indicated on her medication list. She reports her bone density was low in the past. She was started on a freestyle Abel 3. Her glucose average is 110. She had 1 mild low glucose which she treated with 1 gummy bear. [facility] Medical History (Updated 06/18/24 @ 10:31 by Ni Ledbetter NP) Pre-diabetes Obesity Anemia Smoker Rheumatoid arthritis Bronchitis COPD (chronic obstructive pulmonary disease) High cholesterol Surgical History Hx of shoulder surgery Hx of colonoscopy History of ear surgery History of lung surgery Hx laparoscopic cholecystectomy Family History Mother Heart disease Father Diabetes Lung cancer Rheumatoid arthritis Social History Patient Tobacco Use Status: Current everyday Tobacco user Tobacco use type: Cigarette Cigarettes Per Day: 2 Current occupational status: employed 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 Absence of acromegalic features. Neck exam reveals nl size thyroid about 15 gms. No thyroid nodules palpable. Heart S1 S2, Reg R/R. No M/R G. Skin exam reveals absence of vitiligo or acanthosis nigricans. Assessment & Plan Assessment & Plan (1) Pre-diabetes: Code(s): R73.03 - Prediabetes Category: Medical Plan: 59-year-old female with prediabetes recently recovered from CVA. She is continuing with PT/OT. Once she completes this and gets clearance from her medical physician she will start going to the gym and working back again on the treadmill. Continue pioglitazone 15 mg and metformin 500 mg. She was shown how to access her GMI, average glucose and low glucose events in her Pearescope Abel 3. She was given glucose targets. I recommended that she consider purchasing the learn method for weight control and going through this work book on her own. She will follow up with her PCP concerning her bone density after if this is done in July. I will see her back in 6 months The patient had an opportunity to ask questions regarding treatment plan. The patient expressed understanding and agreement with the above treatment plan. The patient is aware they should contact our office by phone for worsening glucose readings or for any low blood sugars which may warrant a change in diabetes medication. Compliance is encouraged with medications and any followup testing/consults which may have been ordered. Patient Instructions: Take 15 carb carbohydrate grams to treat a low sugar (3-4 glucose tablets, half a glass of juice or 15 carbohydrate grams of soft candy such as gummie snacks). Recheck your sugar in 15 minutes and re-treat again with 15 carbohydrate grams if low or still with symptoms. Do not drive a car or operate machinery if you do not know what your blood sugar is, if it is low or in excess of 300. Coding Level of Care Code Est Pt Level 4 (17640) Diagnoses Pre-diabetes R73.03 Time Spent (min) 30 Comment Time spent reviewing labs/provider notes, face to face, chart doc
[2024-06-18 09:46] VITALS: BP 124/82; PULSE 76; O2SAT 96; BMI 26.2
[2024-06-18 09:57] LABS: Glucose, Whole Blood 88 mg/dL (60-115)
--- OUTSIDE RECORDS SUMMARY | 2024-06-18 10:40 | XMS_ITS | Clinical Summary ---
Author Organization [facility] 299 [facility] Address [address] [place] [address] Phone Care Team Providers Care Student Name Role Phone Manav Sanford MD Primary Care Provider [phone] Allergies Active Allergy Reactions Criticality Noted Date [...] 04/07/2024 Telephone Gastroenterology - [address] [facility] [address] [place] [address] Jessica Osborne MA Results 04/01/2024 Lab Requisition [facility] - Main Lab 299 [facility] [place] [address] Curtis Karimi MD Epigastric pain [...] PROCEDURE: HISTORICAL CHOLECYSTECTOMY SALPINGOOPHORECTOMY 11/29/2017 Right PROCEDURE: CT LAPAROSCOPY W/RMVL ADNEXAL STRUCTURES HYSTERECTOMY 03/12/1998 PROCEDURE: HISTORICAL HYSTERECTOMY OTHER SURGICAL HISTORY Left PROCEDURE: CT COCHLEAR DEVICE IMPLANTATION W/WO MASTOIDECTOMY BLADDER SUSPENSION 09/01/2011 PROCEDURE: HISTORICAL BLADDER SUSPENSION; COMMENT: Bladder Sling OTHER SURGICAL HISTORY 09/10/2019 Right PROCEDURE: CT THORACOSCOPY W/DX WEDGE RESEXN ANATO LUNG RESEXN; COMMENT: R LL wedge resection w/ lymphadenectomy, Dr Oliveros COLONOSCOPY 11/30/2015 PROCEDURE: HISTORICAL COLONOSCOPY; COMMENT: Dr Helton UPPER GASTROINTESTINAL ENDOSCOPY 10/17/2017 PROCEDURE: CT UPPER GI ENDOSCOPY PERFORMED Medical History Medical History Date Comments GERD (gastroesophageal reflux disease) 05/25/2017 DX:GERD (gastroesophageal reflux disease) RA (rheumatoid arthritis) ([facility]) 03/06/2017 DX:RA (rheumatoid arthritis) ([facility]) 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 Control stains appropriately. 2:42 PM [facility] Gross Description A. Small Intestine, [...] four pieces, multiple levels. dvb/DG 2:42 PM [facility] Disclaimer NOTE: The immunohistochemical tests and in situ hybridization tests were developed and their performance characteristics were determined by [facility]. They [...] fixed and paraffin embedded. 2:42 PM EST [facility] Tissue Stomach structure / Unknown 04/01/2024 04/01/2024 2:59 PM EST Tissue specimen (specimen) Stomach structure / Unknown 04/01/2024 04/01/2024 2:59 PM EST us Curtis Karimi MD LAB PATHOLOGY ORDERABLES Shannon lai Result [facility] [address] [place] [address], * (ABNORMAL) Comprehensive metabolic panel (02/11/2024 3:22 PM EST) Sodium 141 133 - 145 mmol/L LAB CHEMISTRY METHOD 02/11/2024 5:07 PM [facility] Potassium 3.8 3.5 - 5.5 mmol/L LAB CHEMISTRY METHOD 02/11/2024 5:07 PM [facility] Chloride 104 96 - 110 mmol/L LAB CHEMISTRY METHOD 02/11/2024 5:07 PM [facility] CO2 29 21 - 32 mmol/L LAB CHEMISTRY METHOD 02/11/2024 5:07 PM [facility] Anion Gap 8 3 - 11 LAB CHEMISTRY METHOD 02/11/2024 5:07 PM [facility] Glucose 111(H) 70 - 100 mg/dL LAB CHEMISTRY METHOD 02/11/2024 5:07 PM [facility] BUN 16 5 - 25 mg/dL LAB CHEMISTRY METHOD 02/11/2024 5:07 PM [facility] Creatinine 0.65 0.50 - 1.10 mg/dL LAB CHEMISTRY METHOD 02/11/2024 5:07 PM [facility] eGFR 102 >=60 mL/min/1. 73m2 LAB CHEMISTRY METHOD 02/11/2024 5:07 PM [facility] Comment:Calculation based on the??Chronic Kidney Disease Epidemiology Collaboration (CKD-EPI) equation refit??without adjustment for race. BUN/Creatinine Ratio 24.6 LAB CHEMISTRY METHOD 02/11/2024 5:07 PM [facility] Calcium 9.6 8.5 - 10.5 mg/dL LAB CHEMISTRY METHOD 02/11/2024 5:07 PM [facility] AST (SGOT) 17 10 - 42 unit/L LAB CHEMISTRY METHOD 02/11/2024 5:07 PM [facility] ALT (SGPT) 27 10 - 60 unit/L LAB CHEMISTRY METHOD 02/11/2024 5:07 PM [facility] Alkaline Phosphatase 131(H) 42 - 121 unit/L LAB CHEMISTRY METHOD 02/11/2024 5:07 PM [facility] Total Protein 6.6 6.0 - 8.0 g/dL LAB CHEMISTRY METHOD 02/11/2024 5:07 PM [facility] Albumin 3.8 3.2 - 5.0 g/dL LAB CHEMISTRY METHOD 02/11/2024 5:07 PM [facility] Total Bilirubin 0.3 0.0 - 1.4 mg/dL LAB CHEMISTRY METHOD 02/11/2024 5:07 PM [facility] Blood Venous blood specimen / Unknown Venipuncture / Unknown 02/11/2024 3:22 PM EST 02/11/2024 4:07 PM EST Alice Shukla [employer] LAB BLOOD ORDERABLES Final Re sult [facility] HOSPITAL LAB [address] [place] [address], [place] [phone] * CT LUNG SCREENING LOW DOSE (11/19/2023 5:25 AM EDT) Anatomical Region Laterality Modality Computed Tomogra phy 11/17/2023 8:29 AM EDT Narrative 11/19/2023 5:25 AM EDT [facility] Diagnostic Imaging Department [address] [place] [address] Patient: ??GISEL CHINO ?/Age/Sex: 1965 - 58 - F Unit#: ??[id number] ? Location/Status: ??SPDICATLS/REG CLI ? Mnemonic/Ordering Site: [...] Procedure Note Agus Munroe MD - 12/26/2023 [facility] Diagnostic Imaging Department [address] [place] [address] Patient: GISEL CHINO /Age/Sex: 1965 - 58- F Unit#: [id number] Location/Status: SPDICATLS/REG CLI Mnemonic/Ordering Site: CTLUNGLD/SPCT Ordering [...] Most Recently Relevant to Health Maintenance Insurance [facility] MEDICAID - [place] Care Teams Student Relationship Specialty Start Date End Date Manav Sanford MD [address] [phone] PCP - General Family Medicine 04/07/24
--- OUTSIDE RECORDS SUMMARY | 2024-06-18 10:40 | XMS_ITS | Encounter Summary ---
Author Organization [employer] Address [address] [place] [address] Care Team Providers Care Real Estate Acquisition Analyst Name Role Phone Manav Sanford MD Primary Care Provider [phone] Encounter Details Date Type Department Care Team ([facility] st Contact Info) Description 04/01/2024 Lab Requisition [facility] - Main Lab 299 [facility] [place] [phone] Curtis Karimi MD [address] [address] Epigastric pain Social History Tobacco Use Types [...] and their performance characteristics were determined by [facility]. They have not been [...] LAB PATHOLOGY ORDERABLES Shannon lai Result [facility] [address] [place] [address], [place] [phone] documented in this encounter Visit Diagnoses Diagnosis Epigastric pain Abdominal pain, epigastric documented in this encounter Care Teams Real Estate Acquisition Analyst Relationship Specialty Start Date End Date Manav Sanford MD [address] [phone] PCP - General Family Medicine 04/07/24 documented as of this encounter
--- OUTSIDE RECORDS SUMMARY | 2024-06-18 10:40 | XMS_ITS | Clinical Summary ---
Author Organization [facility] Address [address] [place] [address] Care Team Providers Care Meat Press Operator Name Role Phone Unavailable Primary Care Provider [...]
== END 2024-06-18 10:25 | disposition home or self-care (01) ==
LOC: HO.ENCR 09:45
PROVIDERS: PCP Family Medicine; Visit Provider Nurse Practitioner Adult Health
DX: R73.03 Prediabetes (principal)
CPT/HCPCS: 99214

== ENCOUNTER → 2024-06-18 09:45 | Outpatient (BNVA) | payer BC, MEDICAID, SELFPAY | PROVIDERS: PCP Family Medicine; Visit Provider Nurse Practitioner Adult Health | DX: R73.03 Prediabetes (principal) | CPT/HCPCS: 82947 ==

== ENCOUNTER 2024-08-06 10:58 | Outpatient (AMB) | payer BC, MEDICAID, SELFPAY ==
--- NOTE | 2024-08-06 11:06 | A.OFFVIS_ITS ---
VS Expanded 08/06/24 11:07 Height 5 ft 7 in Weight 165 lb 2.1 oz BMI 25.9 Intake Visit Reasons: obesity/having symptoms of low sugar Allergies infliximab [From Remicade] Allergy (Verified 06/18/24 09:47) Anaphylaxis rituximab [From Rituxan] Allergy (Verified 06/18/24 09:47) Anaphylaxis novacaine Allergy (Mild, Uncoded 06/18/24 09:47) Hives Nutrition Presentation Details: Pt presents for MNT f/u for obesity. Pt has T2DM on metformin 500 mg/day and 15 m pioglitazone/day and c/o of on going diarrhea when taking metformin in the evening and complains of hypoglycemia Pt c/o of low blood blood glucose at night time and also during the day. Reports low blood glucose during the day often related to skipping a meal or delaying a meal. Telephone encounter sent to medical provider for further evaluation Pt was advised to confirm low blood glucose from CGM by finger stick due to 20- 25% variation Typical meal routine 7am coffee/water , yogurt or banana or coffee and no breakfast (reports 11 am bg at 87 mg/dl and develops symptoms of dizziness) 12 :yogurt/salad with egg, olive oil and vinegar, water 4pm: supper pasta/chicken/vegetable 8pm: fruits, apple/cherries physical activity : laundry , working with children , PT bike 10 min twice/wk pastries/cookies/similar-- 0-2x/month fried foods 0-1x/m BS Monitoring Most Recent Diabetes Results: No Data to Display [facility] Medical History (Updated 08/06/24 @ 11:41 by Chrissie Nascimento, RD, LDN) Pre-diabetes Obesity Anemia Smoker Rheumatoid arthritis Bronchitis COPD (chronic obstructive pulmonary disease) High cholesterol Surgical History Hx of shoulder surgery Hx of colonoscopy History of ear surgery History of lung surgery Hx laparoscopic cholecystectomy Family History Mother Heart disease Father Diabetes Lung cancer Rheumatoid arthritis Social History Patient Tobacco Use Status: Current everyday Tobacco user Tobacco use type: Cigarette Cigarettes Per Day: 2 Current occupational status: employed 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 Assessment & Plan Assessment & Plan (1) Obesity: Comment: Pt on metformin and pioglitazone, monitoring bg Code(s): E66.9 - Obesity, unspecified Category: Medical Plan: Wt: 74 Kg (07/04 ), 75 kg(08/03) Est kcal needs as per MSJ: 1600 (40% carb, 30% protein/fat) Est fluid needs as per 25-30 ml/d:2200 Est prot per day as per 1 g/kg bw: 74 Recommend fiber intake : 8-10 g per day and gradually increase to 25-28 g per day for women and 35-38 g for men or as tolerated Recommend sodium intake per day : less than 2000 mg Educated patient on: ( R = reviewed V = verbalizes understanding N/R = needs review N/A = not applicable * Food sources of carbohydrate, adequate serving sizes and its role in various health conditions: R * Differences between complex carbohydrates a simple carbohydrates, role of fiber in diet: R * Lean protein sources of foods: R * Differences between types of fats and role in diet (mono on saturated fat fat ty acids, saturated fatty acids, trans fats): R V N/R * Food sources of sodium in salt and healthy modifications for heart health in kidney health: R V R/V * Vitamins and minerals: R V N/R * Healthy plate method concept: R * Physical activity: Benefits a precaution: R V N/R * Hypoglycemia protocol (rule of 15): R - CONFIRM LOW BLOOD SUGAR BY FINGER STICK, IF BLOOD SUGAR BELOW 70 THEN TREAT BY HAVING 1/2 CUP OF JUICE OR 3-4 GLUCOSE TABLETS, WAIT 15 MINUTES AND RECHECK BLOOD SUGAR, REPEAT TREATMENT IF BLOOD SUGAR IS BELOW 70. CONTACT YOUR DOCTOR FOR FURTHER ASESSMENT * Dietary prevention of Hyperglycemia: R Patient Instructions: Work on having 3 meals per day balancing meals with protein/fiber/carbs example have yogurt and fruit or cottage cheese and fruit/starch for breakfast - do not skip breakfast to prevent low blood sugars have bedtime snack ; apple and peanut butter as example (this may help prevent low blood sugar at night time) Do confirm low blood sugar by finger stick , follow rule of 15 if having low blood sugar (have 1/2 cup o fjuice , wait 15 minutes and recheck sugar level, repeat treatment if blood sugar continue below 70) Mindful of fats /hidden fat when preparing foods (butter,gravies, oils, sour cream, valdes , high fat cheese /sauces as examples Coding Level of Care Code Nutr Indiv Subseq (48510) Diagnoses Obesity E66.9 Time Spent (min) 30
[2024-08-06 11:07] VITALS: BMI 25.9
--- OUTSIDE RECORDS SUMMARY | 2024-08-06 12:03 | XMS_ITS | Encounter Summary ---
Author Organization [facility] Address [address] [place] [address] Care Team Providers Care Fiscal Agent Name Role Phone Ermias Cunningham MD Primary Care Provider Manav Reed MD Primary Care Provider Unavail able Reason for Visit * Reason Onset Date Comments Provider Call Back 01/09/2022 Encounter Details Date Type Department Care Team Description 01/09/2022 Telephone Pulmonology - [place] [address] [facility] [address] [place] [phone] Marquise Copeland MD [address] [place] [address] Provider Call Back Social History Tobacco Use Types Packs/Day Years Used Date Smoking Tobacco: Former Cigarettes 0.5 41 Smokeless Tobacco: Never Comments:10 cigs daily Alcohol Use Standard Drinks/Week Comments No 0 (1 standard drink = 0.6 oz pur e alcohol) Sex Assigned at Date Recorded Not on file COVID-19 Exposure Response Date Recorded In the last 10 days, have yo u been in contact with someone who was confirmed or suspected to have Coronavirus/COVID-19? No / Unsure 12/26/2021 3:16 PM EDT documented as of this encounter Miscellaneous Notes * Telephone Encounter - Marquise Copeland MD - 01/11/2022 4:30 PM EDT Spoke to pt- will keep her on 10 mg of prednisoen given lung disease and RA. Refill meds- she does not qualifiy for o2 * Telephone Encounter - Yuri Ruiz CMA - 01/10/2022 11:02 AM EDT Please advise * Telephone Encounter - Leida Rivers - 01/09/2022 11:32 AM EDT Patient looking for 6 minute walk results as is having difficulty breathing and would like to know if she qualify for Oxygen. Please advice. documented in this encounter Plan of Treatment Not on file documented as of this encounter Visit Diagnoses Diagnosis Chronic obstructive pulmonary disease, unspecified COPD type (HCC)- Primary Mycobacterium avium infection (HCC) Pulmonary diseases due to other mycobacteria Pneumonia of both lungs due to infectious organism, unspecified part of lung documented in this encounter Care Teams Fiscal Agent Relationship Specialty Start Date End Date Ermias Cunningham MD PCP - General 04/22/07 08/01/22 Manav Sanford MD PCP - General Family Practice 08/02/22 documented as of this encounter
== END 2024-08-06 11:34 | disposition home or self-care (01) ==
LOC: HO.ENCR 10:59
PROVIDERS: PCP Family Medicine; Visit Provider Dietitian, Registered
DX: E66.9 Obesity, unspecified (principal)

== ENCOUNTER → 2024-08-06 10:58 | Outpatient (BNVA) | payer BC, MEDICAID, SELFPAY | PROVIDERS: PCP Family Medicine; Visit Provider Dietitian, Registered | DX: E66.9 Obesity, unspecified (principal); Z68.25 Body mass index [BMI] 25.0-25.9, adult; R73.03 Prediabetes; Z79.84 Long term (current) use of oral hypoglycemic drugs; Z71.3 Dietary counseling and surveillance | CPT/HCPCS: 97803 ==

== ENCOUNTER 2024-08-18 15:57 | Outpatient (AMB) | payer BC, MEDICAID, SELFPAY ==
--- NOTE | 2024-08-18 15:59 | MHC.OFFVIS ---
Vital Signs 08/18/24 16:01 Height 5 ft 6.77 in Weight 165 lb 9.074 oz BMI 26.1 BP 110/68 Blood Pressure Location Rt brachial Position Sitting Pulse 83 Pulse Source Pulse Oximeter Pulse Oximetry (%) 96 Oxygen Delivery Method Room Air Intake Visit Reasons: Osteoporosis Intake Note: Patient present to establish care for Osteoporosis. Anatomic Pathologist Required: No Accompanied by: Significant Other Allergies infliximab [From Remicade] Allergy (Verified 08/18/24 16:02) Anaphylaxis rituximab [From Rituxan] Allergy (Verified 08/18/24 16:02) Anaphylaxis novacaine Allergy (Mild, Uncoded 08/18/24 16:02) Hives Medication List - Last Reconciled 08/18/24 by Emile Wong MD acetaminophen-codeine 300-30 mg 1 tab PO Q4H PRN albuterol sulfate mg inhalation albuterol sulfate 90 mcg/actuation 2 puffs inhalation TID PRN aspirin 81 mg PO DAILY atorvastatin mg PO DAILY blood-glucose sensor (Delivered Abel 3 Plus Sensor device) As directed change every 15 days budesonide-formoterol 80-4.5 mcg/actuation (Symbicort) 1 inh inhalation BID calcium carbonate 600 mg PO BID cholecalciferol (vitamin D3) 10 mcg PO DAILY clopidogrel (Plavix) 75 mg PO DAILY clopidogrel mg PO DAILY diphenhydramine HCl (Benadryl Allergy) 12.5 mg PO BEDTIME esomeprazole magnesium 40 mg PO DAILY evolocumab (Repatha SureClick) mg subcut ezetimibe-rosuvastatin 10-5 mg 1 tab PO DAILY fexofenadine 180 mg PO DAILY fluconazole mg PO Q72H uruwprcmses-vyaysairo-dcxduzdx 200-62.5-25 mcg (Trelegy Ellipta) 1 inh inhalation DAILY folic acid PO DAILY ipratropium-albuterol 0.5 mg-3 mg(2.5 mg base)/3 mL mL inhalation methotrexate sodium mg PO .3 tabs PO Q 7 days nicotine 1 patch topical DAILY omeprazole 40 mg PO DAILY ondansetron mg PO Q8H pioglitazone 15 mg PO DAILY prednisone 5 mg PO DAILY roflumilast mcg PO DAILY tiotropium bromide 2.5 mcg/actuation (Spiriva Respimat) 2.5 mcg inhalation DAILY tocilizumab (Actemra) IV HPI Comments Details: 59 YO Female with PMHx Type 2 DM and chronic steroid use is seen in consultation at the request of PCP for Osteoporosis. The patient is a 59-year-old female presenting with osteoporosis. Diagnosed last year, no previous treatment was undertaken. The bone density scan shows a T-score of -2.9 in the spine. She has a familial predisposition to osteoporosis. A right ankle fracture from 10 years ago was her only significant fracture. She maintains a calcium-rich diet and is on calcium carbonate and vitamin D3 supplements. The discontinuation of pioglitazone was recommended due to effects on bone health. Recent lifestyle changes were necessitated following a stroke, affecting her exercise routine. First diagnosed in last yr . Not Received treatment in the past history of pathologic fracture in ankle 10 yrs a go or ONJ. Has several servings of dietary calcium per day in the form of broccoli, yogurt . Takes Calcium supplement 1200 mg daily in divided doses. Takes 400 IU of Vitamin D daily. - Metformin: previously taken without regularity due to side effects of diarrhea The patient consumes yogurt daily, avoids cheese, and includes broccoli and salmon in her diet regularly. She opts for almond milk consumption over traditional dairy milk. Her dietary focus is on achieving 1200 mg of calcium daily, primarily from natural dietary sources. - Pioglitazone: continued use until now; associated with potential bone density reduction - Calcium carbonate: 600 mg twice daily, initiated roughly a year ago - Vitamin D3:400 IU daily Takes PPI, Took anticoagulant, -antiepileptic was on glucocorticoid medication now off . was Does weight bearing exercise 4 days per week in the form of bicycle and treadmill . The patient previously engaged in a routine consisting of treadmill and biking exercises every other day. Post-stroke, she halts exercise pending medical clearance due to weakened leg strength. 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 UTD on dental cleanings and sees dentist every 6 months. No planned upcoming dental work or extractions. Tabacco use 1/2 ppd . No heavy ETOH abuse DXA dated 07/2024: TScore of -2.9 in LS Labs: COUNT INCLUDES THE [facility] Medical History (Updated 08/18/24 @ 16:08 by Emile Wong MD) Osteoporosis Pre-diabetes Obesity Anemia Smoker Rheumatoid arthritis Bronchitis COPD (chronic obstructive pulmonary disease) High cholesterol Surgical History Hx of shoulder surgery Hx of colonoscopy History of ear surgery History of lung surgery Hx laparoscopic cholecystectomy Family History Mother Heart disease Father Diabetes Lung cancer Rheumatoid arthritis Social History Patient Tobacco Use Status: Current everyday Tobacco user Tobacco use type: Cigarette Cigarettes Per Day: 2 Current occupational status: employed 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 Absence of blue sclera. Absence of kyphosis. Thyroid gland is of nl size and weighs 15 gms. There are no thyroid nodules palpated. Lungs CTA. Heart S1 S2 Reg R/R Abdominal exam benign. Muscle strength 5/5 . Examination of spine reveals absence of tenderness on palpation Assessment & Plan Assessment & Plan (1) Osteoporosis: Code(s): M81.0 - Age-related osteoporosis without current pathological fracture Category: Medical Plan: This is a 59-year-old white female with a history of type 2 diabetes and steroid dependency found to have osteoporosis. Rule out other secondary causes Plan is to check a calcium, albumin, metabolic panel, TSH, free T4, phosphorus, 24 hour urine for calcium and creatinine, 25 hydroxy vitamin-D, urine immunofixation. Will ensure 1200 mg of calcium and vitamin D3 2000 IU. We will also stop pioglitazone as this could contribute to bone loss. Assuming secondary workup is negative would strongly consider anabolic agent indicated for steroid induced osteoporosis such as Tymlos or Forteo considering low bone density and high risk for fracture which would then we proceeded by anti resorptive agent 1. Osteoporosis Pioglitazone will be ceased. Calcium carbonate and vitamin D supplements will continue. Diagnostic testing for secondary osteoporosis etiologies such as hypercalciuria. 5. Tobacco Use Disorder Advice to cease smoking is reinforced, facilitating overall health improvement. During the discussion, I addressed osteoporosis treatment options and highlighted the side effects of pioglitazone on bone health, leading to cessation. I explained the rationale behind continued calcium and vitamin D supplementation and the importance of secondary cause exploration. We discussed potential antihyperglycemic alternatives to pioglitazone for prediabetes management in consideration of glycemic stability. I highlighted the necessity of safe, monitored re-engagement in physical activities and smoking cessation. I emphasized the significance of follow-up post-urinary assessment and reinforced that lifestyle modifications are crucial in health optimization. - Stop taking pioglitazone as it affects bone health. - Continue taking calcium supplements twice a day and vitamin D daily. - Aim for 1200 mg of calcium from diet and supplements. - Bring blood sugar monitors to diabetes checkups. Scheduled a follow up appointment for diabetes with the primary care diabetes team - Quit smoking and follow up with ichthyologist for smoking cessation plan. - - Schedule an evaluation after urinary condition resolves to perform a 24-hour urine study. The patient had an opportunity to ask questions regarding treatment plan. The patient expressed understanding and agreement with the above treatment plan. The patient is aware they should contact our office by phone for worsening glucose readings or for any low blood sugars which may warrant a change in diabetes medication. Compliance is encouraged with medications and any followup testing/consults which may have been ordered. Patient was informed and verbally consented to the use of an ambient scribe for clinic note documentation during this visit. Orders: Orders Calcium Today M81.0 - Age-related osteoporosis without current pathological fracture Albumin Level Today M81.0 - Age-related osteoporosis without current pathological fracture Basic Metabolic Panel Today M81.0 - Age-related osteoporosis without current pathological fracture Calcium, 24 Hr Ur Today M81.0 - Age-related osteoporosis without current pathological fracture Free T4 (Free Thyroxine) Today M81.0 - Age-related osteoporosis without current pathological fracture Creatinine, 24 Hr Group Today M81.0 - Age-related osteoporosis without current pathological fracture Thyroid Stimulating Hormone Today M81.0 - Age-related osteoporosis without current pathological fracture Vitamin D 25-OH Total Today M81.0 - Age-related osteoporosis without current pathological fracture Phosphorus Today M81.0 - Age-related osteoporosis without current pathological fracture Immunofixation, Random Urine Today M81.0 - Age-related osteoporosis without current pathological fracture Medications: Discontinued pioglitazone Discontinued Reason: Doctor's Order 15 mg PO DAILY 30 tabs 5RF Coding Level of Care Code Est Pt Level 4 (76789) Diagnoses Osteoporosis M81.0
[2024-08-18 16:01] VITALS: BP 110/68; PULSE 83; O2SAT 96; BMI 26.1
--- OUTSIDE RECORDS SUMMARY | 2024-08-18 17:33 | XMS_ITS | Encounter Summary ---
Author Organization [facility] Address [address] [place] [address] Care Team Providers Care Clinical Nurse Manager Name Role Phone Ermias Cunningham MD Primary Care Provider Manav Reed MD Primary Care Provider Unavail able Reason for Visit * Reason Onset Date Comments Provider Call Back 01/09/2022 Encounter Details Date Type Department Care Team Description 01/09/2022 Telephone Pulmonology - [place] [address] [facility] [address] [place] [id number] Marquise Copeland MD [address] [place] [phone] Provider Call Back Social History [...] lung documented in this encounter Care Teams Clinical Nurse Manager Relationship Specialty Start Date End Date Ermias Cunningham MD PCP - General 04/22/07 08/01/22 Manav Sanford MD PCP - General Family Practice 08/02/22 documented as of this encounter
== END 2024-08-18 16:48 | disposition home or self-care (01) ==
LOC: HO.ENCR 15:58
PROVIDERS: PCP Family Medicine; Visit Provider Internal Medicine Endocrinology, Diabetes & Metabolism
DX: M81.0 Age-related osteoporosis without current pathological fracture (principal)
CPT/HCPCS: 99214

== ENCOUNTER → 2024-08-18 15:57 | Outpatient (BNVA) | payer BC, MEDICAID, SELFPAY | PROVIDERS: PCP Family Medicine; Visit Provider Internal Medicine Endocrinology, Diabetes & Metabolism ==

== ENCOUNTER 2024-09-24 15:39 | Outpatient (AMB) | payer BC, MEDICAID, SELFPAY ==
--- OUTSIDE RECORDS SUMMARY | 2024-09-24 15:46 | XMS_ITS | Data Portability ---
Author Organization [employer] [facility] Office Address [address] [place] [address] Assessment Encounter Date Assessment Date Assessment LastModified by Organization Details LastModified Time 07/29/2024 07/29/2024 I spent 35 minutes of wzzl-sf-vzmd counselling and care coordination time with the patient. This includes reviewing medical records (medical, surgical, family and social history); updating medication and allergy information in the electronic health record; and ordering labs, medications, and education materials to continue patient care. nbenzon Not available 07/29/2024 14:51:47 08/13/2024 08/13/2024 I spent 20 minutes of tisp-ah-ottz counselling and care coordination time with the patient. This includes reviewing medical records (medical, surgical, family and social history); updating medication and allergy information in the electronic health record; and ordering labs, medications, and education materials to continue patient care. Today, we had a long discussion on the importance of weight on future health problems and they are motivated to start diet and lifestyle changes at this time. We discussed that fighting off excess weight could help reduce her future risk of metabolic syndrome, diabetes, cardiovascular disease, and other health problems. They will return to discuss her progress and at that point we will discuss other options for excess weight at our future visit. At this point, they are interested in trying medication for her weight. Given patient's history of a recent stroke she is not an ideal candidate for hormonal medications to help these symptoms. nbenzon Not available 08/13/2024 16:37:30 09/22/2024 09/22/2024 I spent 15 minutes of eldw-bk-tbkz counselling and care coordination time with the patient. This includes reviewing medical records (medical, surgical, family and social history); updating medication and allergy information in the electronic health record; and ordering labs, medications, and education materials to continue patient care. Overall patient has had minimal bothersome side effects while using Wegovy. Currently in the process of a work up with urology and endocrinology regarding bone density results and hematuria. Encouraged to continue these follow up appointments as scheduled. Plan to hold Wegovy for 1 week for port placement as requested by anesthesia. nbenzon Not available 09/22/2024 13:52:14 Plan of Treatment Reminders Order Date Submit Date Provider Last Modified By Organization Details Last Modified Time Details Appointments [id number] 2024 11:00A M ASHLEY DINERO NP Not available Not available Not available Lab None recorded. Referral None recorded. Procedures None recorded. Surgeries None recorded. Imaging None recorded. Medication Orders Wegovy 0.25 mg/0.5 mL subcutane ous pen injector 2024 025 [id number], [address] [place] [address], [id number], 09/22/2024 13:44:10 Wegovy 0.25 mg/0.5 mL subcutane ous pen injector 2024 025 s[address]cki [id number], [address] [place], [id number], 08/19/2024 12:11:03 Patient TargetsNo targets recorded. Patient Instructions Encounter Date Encounter Id Patient Instructions Last Modified By Organization Details Last Modified Time 07/29/2024 [id number] Any requested follow-up visits are listed below in the Plan of Care section. Go directly to the [facility] medical physiologist at [email or web address] to book a time. [email or web address] Not available 07/29/2024 13:15:58 It was a pleasur e to meet with you today! We discussed your health concerns related to menopause symptoms and weight gain. I will consult with our team regarding possible treatment options and we can discuss these options at our next visit. Your Care Plan Together, we decided that you would: - Schedule a follow-up appointment on August 13 at 1:00 PM to discuss treatment options after consulting with other clinicians. - Increase your water intake to at least 64 ounces per day. - Increase your fiber intake through fruits, vegetables, and possibly fiber supplements like Metamucil. - Continue your current medications and treatments for rheumatoid arthritis and pre-diabetes. - Monitor your symptoms and report any changes or concerns during the next visit. Please carefully review the care plan we have agreed upon above, which includes specific information about your menopause symptoms, weight management, and other important details about your overall care. Thank you for trusting us with your care! Diet: Timing: Try intermittent fasting, eating during daylight hours over an 8 hour window. For example, eat between 10 a.m and 6 p.m. Try to finish your last meal at least 3-4 hours before bedtime to fully digest. Avoid alcohol and sugary sweets close to bedtime as it can lead to sleep disruption. Helpful food choices: - Choose complex carbohydrates over simple carbs to help avoid rapid spikes in blood sugar that may contribute to feelings of anxiety, as well as weight gain and metabolic disease. - A plant-based diet high in vegetables and fruits can help maintain healthy weight and assist in management of menopausal symptoms. - Aim to eat 20-25 grams of protein with each meal. - Twice weekly consume fatty fish like salmon or sardines. These types of fish contain healthy omega-3 fatty acids, which can provide benefits to mood, reduce inflammation, and improve brain and cardiovascular health. - Try to avoid refined sugars and high-glycemic foods to help balance mood and improve sleep. - Avoid caffeine, spicy foods, hot drinks, alcohol and sugar, which are known triggers for hot flashes and night sweats. Exercise: - Aim for regular exercise with 30 minutes of moderate intensity activity on at least 5 days of the week. - Incorporate weight training into your exercise routine to increase strength, improve metabolism, and maintain bone health. - Avoid exercise close to bedtime so it does not interfere with sleep. As we discussed, fasting or timed eating is increasingly recognized as an effective weight management tool. In addition to the reduced calorie intake associated with this approach to eating, it is also linked to improved insulin sensitivity with better glucose control and may help avoid diabetes along with battling excess weight. There are several commonly adapted fasting or timed eating strategies: - The 168 method Only eat during an 8 hour period (such as noon to 8 p.m.), with 16 hours of fasting. - Xia-tczp-kjd method One day per week do not eat anything from one dinner until the following day dinner. - The 5:2 diet Two days a week, reduce calorie intake to 500-600 calories/day It is important to approach fasting/timed eating safely: - For those with diabetes, you should discuss with your diabetes care provider before attempting any timed eating/fasting diet as a change in eating habits can affect your glucose levels and insulin needs. - For most people, calorie restricted diets such as the fasting/timed eating above should aim for modest paced weight loss with sustainable lifestyle changes. The CDC advises weight loss goals of 1-2 lbs/week or 4-8 lbs/month as a healthy and sustainable weight loss goal. It was such a pleasure to meet with you today. I am excited to partner with you on your weightloss journey. As a reminder, it can take weeks to months to have medications approved by the insurance companies. Rest assured, we are tracking this daily and will work diligently on your behalf to facilitate insurance approval. Please be sure to have access to the [facility] anuel so we can send you messages if we need any additional information from you for your insurance authorization. I have included medication instructions above for when you are able to begin the medications. If we change medications, due to insurance requirements, we will update the instructions accordingly. While we wait on the insurance authorization, this is a great time to work on setting some healthy behaviors to set yourself up for success. I have included some suggestions below. You can always find this information in the Weight Management Tips document. You can also find this under your Learning Materials tab in the [facility] Patient Portal. Here are some suggestions: Healthy eating: Start with a change that you feel ready to make. Then, consider what else you can work into your routine. Here are some ideas: -Eat 3 meals a day, including breakfast -Drink 8 glasses of water a day -Reduce portions -Find a healthy go-to snack that is low in carbs, sugar, and fat Increase servings of fruit -Increase servings of vegetables -Reduce or eliminate soda -Limit processed foods -Increase protein -Increase fiber -Reduce sugar -Reduce sodium -Reduce carbohydrates -Limit saturated and trans fats Physical activity: Find an activity you will enjoy. To start, aim to be active at least 5 days a week for 30 minutes each day. Here are some ideas: -Walk briskly -Bike -Swim -Dance -Hike -Play golf -Do yoga or pilates -Lift weights -Do housework or yard work Behavior and mindset: Certain behaviors and the way you think can play a role in your weight management. Here are some ideas: -Keep a food journal (log through [facility], more info below) -Keep an activity journal -Identify triggers that lead to emotional eating -Identify challenging social eating situations -Learn about eating mindfully -Prepare for how to handle setbacks -Get a full night of sleep (7-8 hours) -Focus on small changes like parking further from the grocery store or your office to stretch your legs and gain a few more steps each day Setting Realistic Goals: -Keep in mind that, on average, you may lose 1 to 2 pounds per week but some weeks you may not lose weight and that is OK -Start slowly with an activity you enjoy, and make it a habit -Ask a family member or friend to get active with you -Work with members of your household to choose healthy foods -Recognize your progress, and remember that each day is a new day -Prepare meals in advance -Schedule time to make physical activity a part of your daily routine -Stay on track, even when you feel like you are not making progress -Monitor your progress. People who monitor progress lose more weight than those who do not We will meet back again in about 4 weeks to see how your new medication is working and work with you until we have medications stablized. Please let us know if you have any questions or concerns! Kindly, holly Not available 07/29/2024 14:59:43 08/13/2024 [id number] Any requested follow-up visits are listed below in the Plan of Care section. Go directly to the [facility] medical physiologist at [email or web address] to book a time. holly Not available 08/13/2024 13:04:59 It was a pleasur e to meet with you today! We discussed your health concerns related to weight management, diabetes, and cholesterol. Your Care Plan Together, we decided that you would: - Discontinue taking Metformin due to side effects such as chronic diarrhea and brain fog. - Start a weekly injectable medication for weight loss, which will also help with insulin resistance and glucose stabilization. The specific medication will be determined based on insurance approval and may include options like Ozempic, Wegovy, Zepbound, or Mounjaro. - Administer the injection in your stomach or upper outer arm. - Aim for a healthy weight loss of 1 to 2 pounds per week. If this goal is not met, the dosage will be increased every 4 weeks until the desired weight loss is achieved. - Be aware of potential side effects of the injectable medication, which may include nausea, diarrhea, and vomiting, particularly within the first 24 to 48 hours after the injection. - Follow up in 4 to 6 weeks to assess progress and adjust dosages as needed. - Undergo repeat cholesterol and diabetes lab tests in a couple of months to compare progress. It was such a pleasure to meet with you today. I am excited to partner with you on your weightloss journey. As a reminder, it can take weeks to months to have medications approved by the insurance companies. Rest assured, we are tracking this daily and will work diligently on your behalf to facilitate insurance approval. Please be sure to have access to the [facility] anuel so we can send you messages if we need any additional information from you for your insurance authorization. I have included medication instructions above for when you are able to begin the medications. If we change medications, due to insurance requirements, we will update the instructions accordingly. While we wait on the insurance authorization, this is a great time to work on setting some healthy behaviors to set yourself up for success. I have included some suggestions below. You can always find this information in the Weight Management Tips document. You can also find this under your Learning Materials tab in the [facility] Patient Portal. Here are some suggestions: Healthy eating: Start with a change that you feel ready to make. Then, consider what else you can work into your routine. Here are some ideas: -Eat 3 meals a day, including breakfast -Drink 8 glasses of water a day -Reduce portions -Find a healthy go-to snack that is low in carbs, sugar, and fat Increase servings of fruit -Increase servings of vegetables -Reduce or eliminate soda -Limit processed foods -Increase protein -Increase fiber -Reduce sugar -Reduce sodium -Reduce carbohydrates -Limit saturated and trans fats Physical activity: Find an activity you will enjoy. To start, aim to be active at least 5 days a week for 30 minutes each day. Here are some ideas: -Walk briskly -Bike -Swim -Dance -Hike -Play golf -Do yoga or pilates -Lift weights -Do housework or yard work Behavior and mindset: Certain behaviors and the way you think can play a role in your weight management. Here are some ideas: -Keep a food journal (log through [facility], more info below) -Keep an activity journal -Identify triggers that lead to emotional eating -Identify challenging social eating situations -Learn about eating mindfully -Prepare for how to handle setbacks -Get a full night of sleep (7-8 hours) -Focus on small changes like parking further from the grocery store or your office to stretch your legs and gain a few more steps each day Setting Realistic Goals: -Keep in mind that, on average, you may lose 1 to 2 pounds per week but some weeks you may not lose weight and that is OK -Start slowly with an activity you enjoy, and make it a habit -Ask a family member or friend to get active with you -Work with members of your household to choose healthy foods -Recognize your progress, and remember that each day is a new day -Prepare meals in advance -Schedule time to make physical activity a part of your daily routine -Stay on track, even when you feel like you are not making progress -Monitor your progress. People who monitor progress lose more weight than those who do not We will meet back again in about 4 weeks to see how your new medication is working and work with you until we have medications stablized. PLEASE READ: The process of trying to get insurance coverage for GLP-1 medications can take anywhere from 1-3 weeks. The pharmacy should let us know if a prior authorization is needed after they receive the prescription. Sometimes that message is not sent/received. If you have not received an update from our [facility] PA Team within 7 business day please notify use in case we were not notified by the pharmacy. We will start the process to convince your insurance they need to cover this medication. Doing the prior authorization does not a guarantee that this medication will be covered. Please be aware that we try our best to reply to patient messages regarding GLP-1 medication insurance coverage/supply chain issues within 2-3 days but it can sometimes take longer to hear back. Please know that we are doing our best to fight on your behalf to get your insurance to cover these medications. What to do if my insurance denies coverage for the medication? If your insurance company denies coverage for this medication, we can try to get coverage for a different medication or consider a compounded medication. What if my pharmacy does not have this medication in stock? If your pharmacy does not have this medication in stock due to supply chain issues (this is unfortunately becoming a common occurrence): please call around to other pharmacies in your area and check if they have it in stock. You can also try [facility], [facility], or any other mail order pharmacy including the mail-order pharmacy that your insurance prefers to use (found on your insurance website). Once you find a pharmacy that has your medication in stock, notify me and I can send the prescription there. Please let us know if you have any questions or concerns! Tips for Taking Wegovy -You can take Wegovy with or without food -If you need to change the day of the week, you may do so as long as your last dose of Wegovy was given 2 or more days before -If you take too much Wegovy, you may have severe nausea, severe vomiting, and severe low blood sugar. This is why it is critical to follow the dosing regimen prescribed by your [facility] Weight Loss Expert. What to Do if You Miss a Dose -If you miss a dose of Wegovy and the next scheduled dose is more than 2 days away (48 hours), take the missed dose as soon as possible -If you miss a dose of Wegovy and the next scheduled dose is less than 2 days away (48 hours), do not administer the dose. Take your next dose on the regularly scheduled day -If you miss doses of Wegovy for more than 2 weeks, take the next dose on the regularly scheduled day or message your [facility] Weight Loss Expert to talk about how to restart your treatment The most common side effects of Wegovy may include: nausea, diarrhea, constipation, headache, abdominal pain, tiredness, upset stomach, dizziness, feeling bloated, belching, gas, stomach flu, heartburn. The most common side effect is nausea. It tends to go away on its own, but here are some tips to help you manage nausea associated with Wegovy: -Eat bland, low-fat foods, like crackers, toast, and rice -Eat foods that contain water, like soups and gelatin -Avoid lying down after you eat -Go outdoors for fresh air -Eat more slowly Important Safety Information Wegovy may cause serious side effects, including: -Inflammation of your pancreas (pancreatitis). Stop using Wegovy and call your [facility] healthcare provider right away if you have severe pain in your stomach area (abdomen) that will not go away, with or without vomiting. You may feel the pain from your abdomen to your back. -Gallbladder problems. Wegovy may cause gallbladder problems, including gallstones. Some gallstones may need surgery. Call your [facility] healthcare provider if you have symptoms, such as pain in your upper stomach (abdomen), fever, yellowing of the skin or eyes (jaundice), or rae-colored stools. -Increased risk of low blood sugar (hypoglycemia) in patients with type 2 diabetes, especially those who also take medicines for type 2 diabetes such as sulfonylureas or insulin. This can be both a serious and common side effect. Talk to your [facility] healthcare provider about how to recognize and treat low blood sugar and check your blood sugar before you start and while you take Wegovy. Signs and symptoms of low blood sugar may include dizziness or light-headedness, blurred vision, anxiety, irritability or mood changes, sweating, slurred speech, hunger, confusion or drowsiness, shakiness, weakness, headache, fast heartbeat, or feeling jittery. -Kidney problems (kidney failure). In people who have kidney problems, diarrhea, nausea, and vomiting may cause a loss of fluids (dehydration) which may cause kidney problems to get worse. It is important for you to drink fluids to help reduce your chance of dehydration. -Serious allergic reactions. Stop using Wegovy and get medical help right away, if you have any symptoms of a serious allergic reaction, including swelling of your face, lips, tongue, or throat; problems breathing or swallowing; severe rash or itching; fainting or feeling dizzy; or very rapid heartbeat. -Change in vision in patients with type 2 diabetes. Tell your [facility] healthcare provider if you have changes in vision during treatment with Wegovy. -Increased heart rate. Wegovy can increase your heart rate while you are at rest. Tell your [facility] healthcare provider if you feel your heart racing or pounding in your chest and it lasts for several minutes. -Depression or thoughts of suicide. You should pay attention to any mental changes, especially sudden changes in your mood, behaviors, thoughts, or feelings. Call your [facility] healthcare provider right away if you have any mental changes that are new, worse or worry you. If you EVER have any thoughts of self harm or thoughts of harming someone else, please go to the closest emergency department or call 911. You can also call / text [email or web address] Diet: Timing: Try intermittent fasting, eating during daylight hours over an 8 hour window. For example, eat between 10 a.m and 6 p.m. Try to finish your last meal at least 3-4 hours before bedtime to fully digest. Avoid alcohol and sugary sweets close to bedtime as it can lead to sleep disruption. Helpful food choices: - Choose complex carbohydrates over simple carbs to help avoid rapid spikes in blood sugar that may contribute to feelings of anxiety, as well as weight gain and metabolic disease. - A plant-based diet high in vegetables and fruits can help maintain healthy weight and assist in management of menopausal symptoms. - Aim to eat 20-25 grams of protein with each meal. - Twice weekly consume fatty fish like salmon or sardines. These types of fish contain healthy omega-3 fatty acids, which can provide benefits to mood, reduce inflammation, and improve brain and cardiovascular health. - Try to avoid refined sugars and high-glycemic foods to help balance mood and improve sleep. - Avoid caffeine, spicy foods, hot drinks, alcohol and sugar, which are known triggers for hot flashes and night sweats. Exercise: - Aim for regular exercise with 30 minutes of moderate intensity activity on at least 5 days of the week. - Incorporate weight training into your exercise routine to increase strength, improve metabolism, and maintain bone health. - Avoid exercise close to bedtime so it does not interfere with sleep. As we discussed, fasting or timed eating is increasingly recognized as an effective weight management tool. In addition to the reduced calorie intake associated with this approach to eating, it is also linked to improved insulin sensitivity with better glucose control and may help avoid diabetes along with battling excess weight. There are several commonly adapted fasting or timed eating strategies: - The 16/8 method Only eat during an 8 hour period (such as noon to 8 p.m.), with 16 hours of fasting. - Ecm-bbny-emy method One day per week do not eat anything from one dinner until the following day dinner. - The 5:2 diet Two days a week, reduce calorie intake to 500-600 calories/day It is important to approach fasting/timed eating safely: - For those with diabetes, you should discuss with your diabetes care provider before attempting any timed eating/fasting diet as a change in eating habits can affect your glucose levels and insulin needs. - For most people, calorie restricted diets such as the fasting/timed eating above should aim for modest paced weight loss with sustainable lifestyle changes. The CDC advises weight loss goals of 1-2 lbs/week or 4-8 lbs/month as a healthy and sustainable weight loss goal. It was such a pleasure to meet with you today. I am excited to partner with you on your weightloss journey. As a reminder, it can take weeks to months to have medications approved by the insurance companies. Rest assured, we are tracking this daily and will work diligently on your behalf to facilitate insurance approval. Please be sure to have access to the [facility] anuel so we can send you messages if we need any additional information from you for your insurance authorization. I have included medication instructions above for when you are able to begin the medications. If we change medications, due to insurance requirements, we will update the instructions accordingly. While we wait on the insurance authorization, this is a great time to work on setting some healthy behaviors to set yourself up for success. I have included some suggestions below. You can always find this information in the Weight Management Tips document. You can also find this under your Learning Materials tab in the [facility] Patient Portal. Here are some suggestions: Healthy eating: Start with a change that you feel ready to make. Then, consider what else you can work into your routine. Here are some ideas: -Eat 3 meals a day, including breakfast -Drink 8 glasses of water a day -Reduce portions -Find a healthy go-to snack that is low in carbs, sugar, and fat Increase servings of fruit -Increase servings of vegetables -Reduce or eliminate soda -Limit processed foods -Increase protein -Increase fiber -Reduce sugar -Reduce sodium -Reduce carbohydrates -Limit saturated and trans fats Physical activity: Find an activity you will enjoy. To start, aim to be active at least 5 days a week for 30 minutes each day. Here are some ideas: -Walk briskly -Bike -Swim -Dance -Hike -Play golf -Do yoga or pilates -Lift weights -Do housework or yard work Behavior and mindset: Certain behaviors and the way you think can play a role in your weight management. Here are some ideas: -Keep a food journal (log through [employer], more info below) -Keep an activity journal -Identify triggers that lead to emotional eating -Identify challenging social eating situations -Learn about eating mindfully -Prepare for how to handle setbacks -Get a full night of sleep (7-8 hours) -Focus on small changes like parking further from the grocery store or your office to stretch your legs and gain a few more steps each day Setting Realistic Goals: -Keep in mind that, on average, you may lose 1 to 2 pounds per week but some weeks you may not lose weight and that is OK -Start slowly with an activity you enjoy, and make it a habit -Ask a family member or friend to get active with you -Work with members of your household to choose healthy foods -Recognize your progress, and remember that each day is a new day -Prepare meals in advance -Schedule time to make physical activity a part of your daily routine -Stay on track, even when you feel like you are not making progress -Monitor your progress. People who monitor progress lose more weight than those who do not We will meet back again in about 4 weeks to see how your new medication is working and work with you until we have medications stablized. Please let us know if you have any questions or concerns! Kindly, holly Not available 08/13/2024 16:40:32 09/22/2024 [id number] Any requested follow-up visits are listed below in the Plan of Care section. Go directly to the [facility] medical physiologist at [email or web address] to book a time. To schedule or modify your visit, access the [facility] portal here: [email or web address] Not available 09/22/2024 13:41:19 Dear Gisel, It was great to see you today! Below is a summary of the plan we decided upon together: Obesity and weight management with Wegovy - You have completed two injections and report only mild nausea. - Continue the Sunday schedule but pause tonight s dose and restart next week after your upcoming port surgery. - I have sent refills so you have enough medication once you restart. - Focus on high-protein foods like chicken, yogurt, cheese, salads and oatmeal to protect muscle mass. -Please continue to drink at least 100 ounces of water per day - We will meet again on October 29 to review your progress after several more weeks on the medication. During the weight loss phase of your program, we recommend that your [facility] provider will meet with you monthly to evaluate medication side effects and efficacy, dietary modifications and incorporation of exercise and NEAT activity. Once you have transitioned to weight maintenance, we recommend the visit dave move to every 4-6 weeks to evaluate weight stability and help with accountability of lifestyle changes you have made. We will then move to every 3-6 month visits for a check in and intervention if needed. Nausea - The mild queasiness you feel after injections is common; try small, frequent meals and stay well hydrated. - Let me know if the nausea worsens or does not improve over time. Hematuria - Continue working with urology to find the cause of the blood in your urine. - We will review any test results or treatment recommendations at our next visit. Low bone density - Your performance improvement coordinator will discuss additional treatment options after the hematuria evaluation is complete. - Weight-bearing exercise and good calcium and vitamin D intake can help support bone health. If you have any questions or experience any new symptoms, please do not hesitate to reach out to our office. Tips for Taking Semaglutide Note: WEGOVY and OZEMPIC are brand names for SEMAGLUTIDE -You can take Semaglutide with or without food -If you need to change the day of the week, you may do so as long as your last dose of semaglutide was given 2 or more days before -If you take too much semaglutide, you may have severe nausea, severe vomiting, and severe low blood sugar. This is why it is critical to follow the dosing regimen prescribed by your [facility] Expert. What to Do if You Miss a Dose -If you miss a dose, and the next scheduled dose is MORE than 2 days away (48 hours), take the missed dose as soon as possible -If you miss a dose, and the next scheduled dose is LESS than 2 days away (48 hours), do not administer the dose. Take your next dose on the regularly scheduled day -If you miss your semaglutide dose for more than 2 weeks, take the next dose on the regularly scheduled day or message your [facility] Expert to talk about how to restart your treatment The most common side effects may include: nausea, diarrhea, constipation, headache, abdominal pain, tiredness, upset stomach, dizziness, feeling bloated, belching, gas, stomach flu, heartburn. The most common side effect is nausea. It tends to go away on its own, but here are some tips to help you manage nausea associated with semaglutide: -Eat bland, low-fat foods, like crackers, toast, and rice -Eat foods that contain water, like soups and gelatin -Avoid lying down after you eat -Go outdoors for fresh air -Eat more slowly Important Safety Information Semaglutide/Wegovy/ Ozempic may cause serious side effects, including: -Inflammation of your pancreas (pancreatitis). Stop using this medication and call your [facility] healthcare provider right away if you have severe pain in your stomach area (abdomen) that will not go away, with or without vomiting. You may feel the pain from your abdomen to your back. -Gallbladder problems. May cause gallbladder problems, including gallstones. Some gallstones may need surgery. Seek urgent medical care if you have symptoms, such as pain in your upper stomach (abdomen), fever, yellowing of the skin or eyes (jaundice), or rae-colored stools. -Increased risk of low blood sugar (hypoglycemia) in patients with type 2 diabetes, especially those who also take medicines for type 2 diabetes such as sulfonylureas or insulin. This can be both a serious and common side effect. Talk to your [facility] healthcare provider about how to recognize and treat low blood sugar and check your blood sugar before you start and while you take this medication. Signs and symptoms of low blood sugar may include dizziness or light-headedness, blurred vision, anxiety, irritability or mood changes, sweating, slurred speech, hunger, confusion or drowsiness, shakiness, weakness, headache, fast heartbeat, or feeling jittery. -Kidney problems (kidney failure). In people who have kidney problems, diarrhea, nausea, and vomiting may cause a loss of fluids (dehydration) which may cause kidney problems to get worse. It is important for you to drink fluids to help reduce your chance of dehydration. -Serious allergic reactions. Stop using this medication and get medical help right away, if you have any symptoms of a serious allergic reaction, including swelling of your face, lips, tongue, or throat; problems breathing or swallowing; severe rash or itching; fainting or feeling dizzy; or very rapid heartbeat. -Change in vision in patients with type [address] [facility] healthcare provider or seek immediate medical attention if you have changes in vision during treatment while on this medication. -Increased heart rate. This medication can increase your heart rate while you are at rest. Tell your [facility] healthcare provider if you feel your heart racing or pounding in your chest and it lasts for several minutes. -Depression or thoughts of suicide. You should pay attention to any mental changes, especially sudden changes in your mood, behaviors, thoughts, or feelings. Call your [facility] healthcare provider right away if you have any mental changes that are new, worse or worry you. If you EVER have any thoughts of self harm or thoughts of harming someone else, please go to the closest emergency department or call 911. You can also call / text [email or web address]_[email or web address] x -: May cause harm. If you become , discontinue semaglutide. Discontinue semaglutide at least 2 months before a planned . While on semaglutide please use a control method to prevent if needed. Sincerely, SAL De Anda Not available 09/22/2024 13:53:50 Reason for Referral None Reported. Problems Name Problem SNOMED Code Status Onset Date Resolution Date Notes Provider Name and Address Organization Details Recorded Time Obesity 197271976 Active 2024 [place] [address] [address], [place], [address], [facility] 5 13:20:12 Abnormal weight gain 714258267 Active 2024 [place] [address] [address] [place], [address], [facility] 5 15:10:40 Menopausal symptom 38128708 Active 2024 [place] [address] [address] [place], [address], [facility] 5 15:10:41 Hypercholester olemia 12518658 Active 2024 [place] [address] [place], [address], [facility] 5 16:14:42 Prediabetes 140176984 Active 2024 [place] [address] [address] [place], [address], [facility] 16:15:40 Rheumatoid arthritis 21270490 Active 2024 [place] [address] [address] [place], [address], [facility] 16:16:06 Problem Notes None recorded. Procedures Surgical History Date Name Laterality Status Provider Name and Address Organization Details Recorded Time 07/24/19 Date of Last Mammogram completed [place]LEY [place] [address] [place], [place], , [facility] 07/29/2024 14:04:20 04/25/19 25 Most Recent Bone Density completed SAL DE ANDA [place], , [facility] 07/29/2024 14:04:20 03/12/19 25 hysterectomy completed SAL DE ANDA [place], , [facility] 07/29/2024 14:05:13 04/21/19 24 Date of Last [place] , [facility] 07/29/2024 14:04:20 07/19/18 99 Date of Last Pap Smear completed ASHLEY TRINIDADNuno, SENIOR ACCOUNTS PAYABLE CLERK [address] [place], , [facility] 07/29/2024 14:04:20 cholecystectomy completed ASHLEY TRINIDADNuno, SENIOR ACCOUNTS PAYABLE CLERK [address] [place], , [facility] 07/29/2024 14:05:28 oophorectomy completed ASHLEY BAR, SENIOR ACCOUNTS PAYABLE CLERK [address] [place], [place], , [facility] 07/29/2024 14:39:27 Imaging Results None recorded. Procedure Notes None recorded. Medical Equipment None Reported. Allergies Allergen ID Allergen Name Allergen Category Reaction Reaction Severity Criticality Documentation Date Start Date Code Code System Note Provider Name and Address Organization Details Recorded Time 209080 adalimuma b medicatio n Not available Not available Not available 07/29/20242016 28623 1 RxNorm Other React ion(s ): Hives /Urti caria Not Available [employer] - prod 13:28:59 533723 inflixima b medicatio n Not available Not available Not available 07/29/20242016 13129 1 RxNorm Not Available [employer] - prod 5 13:28:59 771937 nortripty line medicatio n Not available Not available Not available 07/29/20242021 7531 RxNorm Not Available [employer] - prod 13:28:59 514004 procaine medicatio n Not available Not available Not available 07/29/20242016 8701 RxNorm Other React ion(s ): Hives /Urti caria Not Available [employer] - prod 13:28:59 094851 rituximab medicatio n Not available Not available Not available 07/29/20242016 17864 1 RxNorm Not Available [employer] - [employer] - prod 5 13:28:59 004560 topiramat e medicatio n Not available Not available Not available 07/29/20242021 89689 RxNorm Not Available [employer] - [employer] - prod 5 13:28:59 891674 valproic acid medicatio n Not available Not available Not available 07/29/20242019 53664 RxNorm Other React ion(s ): Myalg ia and Joint Pain Emoti onal Labil ity Not Available [employer] - [employer] - prod 5 13:28:59 339899 calcium valproate Not available arthralgi a (joint pain) Not available Not available 07/29/20242019 1927 RxNorm Emoti onal Labil ity Not Available [email or web address] - prod 5 13:29:00 809544 Rituxan medicatio n anaphylax is Not available Not available 09/22/2024 81970 4 RxNorm Not Available [email or web address] - prod 5 06:46:18 833753 lidocaine medicatio n Not available Not available Not available 09/22/2024 6387 RxNorm Not Available [email or web address] - prod 5 06:46:18 983526 divalproe x sodium medicatio n Not available Not available Not available 09/22/20242019 69299 6 RxNorm Not Available [employer] - prod 5 06:46:18 225125 cefuroxim e Not available itching Not available low 09/22/2024 2194 RxNorm Not Available [employer] - [employer] Data [employer] - prod 5 06:46:18 800534 ciproflox acin medicatio n hives Not available high 09/22/2024 2551 RxNorm Not Available [email or web address] - prod 5 06:46:[address] medicatio n headache Not available high 09/22/2024 74005 36 RxNorm Not Available [email or web address] - prod 06:46:18 Medications Name Sig Start Date Stop Date Status Note LastModified by Organization Details LastModified Time metformin 500 mg tablet Take 0.5 tablets every day by oral route. active Not Available Not Available No t Available atorvastat in 80 mg tablet Take 1 tablet every day by oral route. active Not Available Not Available No t Available albuterol sulfate 1.25 mg/3 mL solution for nebulizati on Inhale 3 mL 3 times a day by inhalatio n route as needed. active for COPD Not Available Not Available No t Available folic acid active Not Available Not Av ailable Not Available methotrexa te 2.5mg - take 6 pills every week active for RA Not Available Not Available No t Available Vitamin D active Not Available Not Rachel ilable Not Available Actemra active infusion for RA Not Available Not Available Not Available Repatha SureClick 140 mg/mL subcutaneo us pen injector Inject 1 mL every 2 weeks by subcutane ous route. active Not Available Not Available No t Available Trelegy Ellipta active for COPD Not Available Not Available Not Available Wegovy 0.25 mg/0.5 mL subcutaneo us pen injector Inject 0.25 mg every week by subcutane ous route for 28 days. 2024 active Not Available Not Available Not Avai lable Vitals Date Recorded Body height Body mass index (BMI) Body weight Provider Name and Address Organization Details Last Updated DateTime 07/29/2024 165.1 cm 30 kg/m2 84091.[place] [address] [place], [address], [facility] 07/29/2024 14:43:27 Date Recorded Body height Body mass index (BMI) Body weight Provider Name and Address Organization Details Last Updated DateTime 08/13/2024 165.1 cm 30 kg/m2 18005.63 [place] [address] [place], [address], [facility] 08/13/2024 16:19:16 Date Recorded Body height Provider Name an d Address Organization Details Last Updated DateTime 09/22/2024 165.[place] [address] [place], [address], [facility] 09/22/2024 13:31:19 Social History Question Answer Notes LastModified by Organizat ion Details LastModified Time Tobacco Smoking Status Current Every Day Smoker ASHLEY DINERO, SENIOR ACCOUNTS PAYABLE CLERK [address], [place], [address], [facility] 07/29/2024 14:37:37 Do You Work In Healthcare? No Information not available 07/29/2024 What Is Your Relationship Status? Information not available 07/29/2024 Are You Sexually Active? Yes Information not available 07/29/2024 How Much Tobacco Do You Smoke? 0.25 PPD Information not available 07/29/2024 Has Tobacco Cessation Counseling Been Provided? Yes Information not available 07/29/2024 Are You Currently In School? No Information not available 07/29/2024 What Genders Are Your Sexual Partners? Male Information not available 07/29/2024 Which Partner(s) Are You Sexually Active With? Same Partner Information not available 07/29/2024 Sex: Female Functional Status Question Answer Note LastModified by Organizat ion Details LastModified Time Do you or have you ever used any other forms of tobacco or nicotine? No Information not available 07/29/2024 Are you currently employed? 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 Occasional Information not available 07/29/2024 Do you or have you ever used any nicotine-free cigarettes, vape, or chewing tobacco? Yes Information not available 07/29/2024 Do you currently use nicotine-free products or are you a former user of these products? Formerly used nicotine-free products Information not available 07/29/2024 Mental Status Question Answer Note LastModified by Organization D etails LastModified Time Do you feel stressed (tense, restless, nervous, or anxious, or unable to sleep at night)? [id number] Information not available 07/29/2024 Family History Relationship Description Onset Age of this Age Resolved Age Notes LastModified by Organization Details LastModified Time Mother Heart disease [email or web address] Not available 2024 14:04:46 Medical History Condition Response Pancreatitis N Diabetes Y Heart Problems N Autoimmune disease Y Pulmonary (TB, Asthma) Y Hepatitis/Liver Disease Y Gallbladder Disease N Cancer N Migraines Y Thyroid Problems N Stroke Y Lung Disease Y GI Problems N Neurologic/Epilepsy N Hematologic disorders N High Cholesterol Y Liver Disease Y Deep Vein Thrombosis N Hypertension N Kidney Disease N Gynecological History Statement/Question Response If Post Menopausal, Age at Menopause Abnormal Pap N Date of Last Colonoscopy 04/21/2023 Date of Last Mammogram 07/23/2024 Most Recent Bone Density 04/25/2024 Date of LMP 07/11/1998 Date of Last Pap Smear 07/19/1998 Current Control Method None Approximate Hormone Replacement Therapy N Obstetrics History GPAL:G 0 P 0 0 0 0 Past Encounters Encounter ID Performer Location Encounter Start Date Encounter Closed Date Diagnosis/Indication Diagnosis SNOMED-CT Code Diagnosis ICD10 Code Diagnosis Note [id number] ASHLEY DINERO NP Main Office [address] [place] [address] 07/29/2024 13:28:33 07/30/2024 04:50:38 Obesity 299701746 E66.9 Abnormal weight gain 161 283655 R63.5 Menopausal symptom 66271 002 N95.1 Overweight 449512027 E66 .3 [id number] ASHLEY DINERO NP Main Office [address] [place] [address] 08/13/2024 12:33:21 08/14/2024 04:46:37 Abnormal weight gain 578269355 R63.5 Obesity 005831857 E66.9 Hypercholesterolemia 136 91848 E78.00 Hyperlipidemia 78824840 E78.5 - Condition persists with elevated lipid levels noted on previous labs; no current medication changes indicated. - Continuing current cholestero l medication regimen.- Discussed potential adjunctive benefit of pending weekly injectable weight-man agement therapy to improve lipid profile.- Advised to follow up in [facility] 6 weeks to assess ongoing management and medication adjustment s.- Plans to repeat lipid panel in a couple of months for comparison . [id number] ASHLEY DINERO NP Main Office [address] [place] [address] 09/22/2024 12:52:06 09/23/2024 04:45:06 Abnormal weight gain 537155210 R63.5 Obesity 180819377 E66.9 - Diagnosis: Obesity, unspecifie d- Assessment : Wegovy has been well tolerated with mild nausea and slight appetite suppressio n but minimal weight change after two doses.- Plan: Continue current Wegovy dose on Mondays after port placement; clinician to send refill today. Risks and benefits of continued semaglutid e therapy reviewed including gastrointe stinal effects and muscle mass preservati on.- Medication s supplement s: Wegovy unknown mg subcutaneo us weekly (hold one week for port procedure) - Lifestyle measures: Emphasized protein intake with chicken, yogurt, cheese, salads and oatmeal to preserve lean mass.- Follow up: Telehealth visit on October 29, 2024 at 2:00 PM Disorder of bone 4766200 3 M85.80 - Diagnosis: Decreased bone density - Assessment : Low bone density noted on recent scan; endocrinol ogist considerin g therapy. - Plan: Endocrinol ogy to determine need for bone-build ing injection after hematuria evaluation . - Ordered diagnostic tests: Endocrinol ogy to order lab panel (details pending) - Lifestyle measures: Encourage weight-jesusita ring exercise as tolerated and adequate calcium and vitamin D intake. - Referrals: Endocrinol ogy (appointme nt tomorrow) - Follow up: Will review at next visit Nausea 316010660 R11.0 - Diagnosis: Nausea - Assessment : Mild post-injec tion nausea associated with Wegovy. - Plan: Conservati ve management and monitor; will reassess if symptoms worsen. - Lifestyle measures: Small frequent meals and hydration discussed. - Follow up: With next visit Blood in urine 99154067 R31.9 - Diagnosis: Hematuria - Assessment : Ongoing painless gross hematuria with urology evaluation pending. - Plan: Await urology workup and follow recommenda tions. - Ordered diagnostic tests: Pending urology urine studies and imaging (not yet performed) - Referrals: Urology (ongoing) - Follow up: Will discuss results when available Health Concerns Section Related Observation LastModified by Organization Detai ls LastModified Time None Recorded Concern Status LastModified by Organization Details LastModified Time None Recorded Advance Directives Directive None Recorded Payers Insurance Date Sequence Insurance Name Policy Number Policy Aiken Covered Member ID Aiken Member ID Guarantor Name 09/19/2024 1 [facility] [id number] Neri Nicholson [id number] Gisel Vipulbe Notes Date Note Type Note Provider Name and Address Organization Details Recorded Time 5 text/html The patient is a 59-year-old female with a history of rheumatoid arthritis, pre-diabetes, and a prior stroke, presenting for evaluation of menopausal symptoms and weight management. Menopausal Symptoms- Underwent a hysterectomy in 1998, retaining one ovary at that time.- Second ovary was removed in 2017 due to a cyst, leading to immediate onset of menopausal symptoms.- Reports persistent hot flashes since the removal of the second ovary.- Denies dyspareunia but states her libido is significantly decreased. Weight Management- Reports weight gain over the past few years without changes in diet or activity level.- Currently weighs 180 lbs.- Engages in regular exercise, including gym workouts and activities with preschoolers.- Drinks 8-10 glasses of water daily.- Takes half a tablet of metformin daily for pre-diabetes, reduced from a full tablet due to side effects. Rheumatoid Arthritis- Diagnosed with rheumatoid arthritis, currently managed with infusions and injections.- Denies any changes in arthritis treatment. Past Medical History- Rheumatoid arthritis- Pre-diabetes- Stroke (04/2024)- Hypercholesterolemia: Last recorded cholesterol level was 325 mg/dL.- Migraines: Experiences migraines without visual disturbances.COPDFatty Liver Past Surgical History- Hysterectomy (1998)- Cholecystectomy: Date not specified.Oophorectomy 2017 Family History- Mother has a history of heart disease. Allergies- Allergic to topiramate, nortriptyline, infiximab, Procaine, Rituximab, Valproate Calcium, Valproic Acid Current Medications and Supplements- Metformin: Half a tablet daily.- Actemra - infusion for RA- Albuterol PRN- Atorvastatin - 80mg daily- Folic Acid - 2 tablets daily- Methotrexate- Repatha- Trelegy-Vitamin D - Medications for rheumatoid arthritis: Includes infusions and injections. Social History- Smokes 6-7 cigarettes daily. Virtual Visit AttestationModality: VideoProvider Location: Home Patient Location: Home Patient State: [place] She has been struggling with weight management for 1-2 years and is seeking options for medications for weight reduction and improvement of overall health. Highest BMI: 30Current weight: 180 BMI:Goal weight: 150 BMI:Last time at goal weight: 3-4 years ago Her comorbidities include COPD, Rheumatoid Arthritis, Pre-Diabetes, Fatty Liver, Hypercholesterolemia, recent stroke. Her highest HbA1c was 5.9 She has previously tried: low calorie diets, metformin use, fiber supplements Her personal history does not include:thyroid cancerpancreatitisAn eating disorder including anorexia, bulimia, orthorexia, binge or others. Her family history does not include:thyroid cancer Her most recent blood work revealed: HbA1c : 5.9 - this was completed by her PCP. Placed on metformin following elevated A1c Patient reports a stroke that occured while at work in April of this year. Lost vision in one eye and became very dizzy. She was taken to the ER by ambulance and a stroke was confirmed. She was placed on anti-coagulants for 21 days and then these were discontinued by [place] doctor[place] [address] [place], [address], [facility] [employer] 08/12/2024 16:00:41 5 text/html The patient is a 59-year-old female with a history of stroke, pre-diabetes, and hypercholesterolemia presenting for follow-up on weight management and medication review. Weight Management- Patient reports not feeling like herself and is interested in weight management options.- Currently on metformin, taking half a tablet due to chronic diarrhea and brain fog.- No changes in medications since the last visit.- Recent labs include cholesterol and hemoglobin A1c. Past Medical History- Stroke- Diabetes- Hypercholesterolemia Virtual Visit AttestationModality: VideoProvider Location: Home Patient Location: Home Patient State: [facility] our last visit on 07/29/3024: Menopausal Symptoms - Underwent a hysterectomy in 1998, retaining one ovary at that time. - Second ovary was removed in 2017 due to a cyst, leading to immediate onset of menopausal symptoms. - Reports persistent hot flashes since the removal of the second ovary. - Denies dyspareunia but states her libido is significantly decreased. Weight Management - Reports weight gain over the past few years without changes in diet or activity level. - Currently weighs 180 lbs. - Engages in regular exercise, including gym workouts and activities with preschoolers. - Drinks 8-10 glasses of water daily. - Takes half a tablet of metformin daily for pre-diabetes, reduced from a full tablet due to side effects. She has had many unwanted side effects while using Metformin. The most bothersome has been diarrhea. Rheumatoid Arthritis - Diagnosed with rheumatoid arthritis, currently managed with infusions and injections. - Denies any changes in arthritis treatment. Past Medical History - Rheumatoid arthritis - Pre-diabetes - Stroke (04/2024) - Hypercholesterolemia: Last recorded cholesterol level was 325 mg/dL. - Migraines: Experiences migraines without visual disturbances. COPD Fatty Liver Past Surgical History - Hysterectomy (1998) - Cholecystectomy: Date not specified. Oophorectomy 2016 Allergies - Allergic to topiramate, nortriptyline, infiximab, Procaine, Rituximab, Valproate Calcium, Valproic Acid Current Medications and Supplements - Metformin: Half a tablet daily. - Actemra - infusion for RA - Albuterol PRN - Atorvastatin - 80mg daily - Folic Acid - 2 tablets daily - Methotrexate - Repatha - Trelegy -Vitamin D - Medications for rheumatoid arthritis: Includes infusions and injections. Social History - Smokes 6-7 cigarettes daily. Virtual Visit Attestation Modality: Video Provider Location: Home Patient Location: Home Patient State: [place] She has been struggling with weight management for 1-2 years and is seeking options for medications for weight reduction and improvement of overall health. Highest BMI: 30 Current weight: 180 BMI: Goal weight: 150 BMI: Last time at goal weight: 3-4 years ago Her comorbidities include COPD, Rheumatoid Arthritis, Pre-Diabetes, Fatty Liver, Hypercholesterolemia, recent stroke. Her highest HbA1c was 5.9 She has previously tried: low calorie diets, metformin use, fiber supplements, cholesterol lowering medication.She does endorse 150 minutes of active exercise per week Her personal history does not include: thyroid cancer pancreatitis An eating disorder including anorexia, bulimia, orthorexia, binge or others. Her family history does not include: thyroid cance Her most recent blood work revealed: HbA1c : 5.9 - this was completed by her PCP. Placed on metformin following elevated A1c. She is experiencing unwanted side effects while taking metformin Patient reports a stroke that occured while at work in April of this year. Lost vision in one eye and became very dizzy. She was taken to the ER by ambulance and a stroke was confirmed. She was placed on anti-coagulants for 21 days and then these were discontinued by her doctor[place] [address] [place], [address], [facility] 08/19/2024 12:11:06 5 text/html Virtual Visit AttestationModality: VideoProvider Location: Home Patient Location: Home Patient State: [place] Chief complaint: Follow up for weight management with weekly Wegovy injections. History of present illness hpi: Female presenting for follow up on weight management therapy with Wegovy injections. Weight management follow up - Completed two weekly Wegovy injections since last visit and reports mild nausea without other side effects. - Current weight uncertain; patient has not weighed herself since beginning Wegovy treatment. She has an appointment with her performance improvement coordinator tomorrow and plans to check weight at that time. (previously documented 180 lb). Pants remain tight and has not noticed visible weight change. - Appetite is reduced; often skips breakfast, eats a salad for lunch, and smaller suppers. No jitteriness. - Administers Sunday injections without difficulty. - Will hold tonight s dose and skip this week's medication due to scheduled port placement in one week under anesthesia. - [facility] has contacted her regarding prescription renewal; clinician will send additional refills so medication supply is uninterrupted once restarted. - Next follow up visit scheduled for October 29 to reassess response after an additional four to five weeks of therapy. Hematuria - Reports frequent visible blood in urine for several weeks. - Denies dysuria or infection symptoms. - Urology evaluation in progress; performance improvement coordinator postponed planned endocrine testing until urology workup completed. Low bone density - Recent bone density test showed decreased bone density; performance improvement coordinator considering an injectable bone medication but deferred until hematuria evaluation is complete. Upcoming port placement - Scheduled port insertion next Sunday for infusion access due to poor peripheral veins. - Plans to pause Wegovy beginning today and remain off at least one week per procedure guidance. Screening history: Bone density scan: date not provided, demonstrated low bone density. Current medications: Wegovy 0.25 mg subcutaneous weekly Imaging results: Bone density scan showed decreased bone density (osteopenia) Highest BMI: 30Starting weight: 180 BMI: 30Current weight: BMI: No current weight available todayGoal weight: 150 Review of nutrition, exercise, sleep, and stress includes: We discussed proper nutrition choices including increased protein and fiber. Maintain adequate fluid intake. Limit sugars and discussed s/s of hypoglycemia. Encouraged at least 7 hours of sleep per night. Here are some diet and exercise suggestions for weight management - Protein: Eat 100 grams daily (aim for at least 20g with every meal)- Fiber: Eat 25 grams daily (may include 10-12 grams of supplemental fiber, see FAQ fiber handout)- Carbs: Aim for less than 100 grams daily- Hydration: Drink 100 oz water daily Exercise-Aim for 150-200 minutes of vigorous exercise/week (at least 30 mins x 5 days a week)-Include strength training to maintain [place] [address] [facility], [place], [address], [facility] 09/22/2024 18:42:15 OBGyn Episode No OBEpisode recorded.
--- OUTSIDE RECORDS SUMMARY | 2024-09-24 15:46 | XMS_ITS | Encounter Summary ---
Author Organization [facility] [facility] Address [address] [place] [address] Care Team Providers Care Metalizer Name Role Phone Manav Sanford MD Primary Care Provider [phone] Encounter Details Date Type Department Care Team ([facility] st Contact Info) Description 04/01/2024 Lab Requisition [facility] - Main Lab [address] [facility] [place] [id number] Curtis Karimi MD [address] [address] Epigastric pain Social History Tobacco Use Types [...] above diagnosis. Control stains appropriately. 2:42 PM [facility] Gross Description A. Small Intestine, [...] four pieces, multiple levels. dvb/DG 2:42 PM [facility] Disclaimer NOTE: The immunohistochemical tests and in situ hybridization tests were developed and their performance characteristics were determined by [facility]. They have not been cleared [...] formalin fixed and paraffin embedded. 2:42 PM [facility] Tissue Stomach structure / Unknown 04/01/2024 04/01/2024 2:59 PM EST Tissue specimen (specimen) Stomach structure / Unknown 04/01/2024 04/01/2024 2:59 PM EST us Curtis Karimi MD LAB PATHOLOGY ORDERABLES Shannon lai Result [facility] [address] [place] [address], [place] [phone] documented in this encounter Visit Diagnoses Diagnosis Epigastric pain Abdominal pain, epigastric documented in this encounter Care Teams Metalizer Relationship Specialty Start Date End Date Manav Sanford MD [address] [address] PCP - General Family Medicine 04/07/24 documented as of this encounter
--- OUTSIDE RECORDS SUMMARY | 2024-09-24 15:46 | XMS_ITS | Clinical Summary ---
Author Organization [facility] Address [address] [place] [address] Care Team Providers Care Package Drier Name Role Phone Unavailable Primary Care Provider Unavailabl e Encounters Date Type Department Care Team Description 08/11/2024 Transcribe Orders [facility] Manav Sanford MD Candidal stomatitis (Primary Dx) from Last 3 Months Social History Tobacco Use Types Packs/Day Years Used Date Smoking Tobacco: Never Assessed Comments Unknown Sex and Gender Information Value Date Recorded Sex Assigned at Not on file Legal Sex Female 3:36 PM EDT Gender Identity Not on file Sexual Orientation Not on file Plan of Treatment Health Maintenance Due Date Last Done Comments Hepatitis C Virus Screening 1964 HIV Screening 1977 DTaP/Tdap/Td Vaccines (1 - Tdap) 1983 Pneumococcal Vaccines 50+ (1 of 1 - PCV) 2014 Zoster (Shingles) Vaccine (1 of 2) 2014 COVID-19 Vaccine ( - 2023-2 5 season) 2023 RSV Vaccine 60 years and old er and Patients (1 - 1-dose 75+ series) 2039 Hepatitis B Vaccines Aged Out No long er eligible based on patient's age to complete this topic
--- OUTSIDE RECORDS SUMMARY | 2024-09-24 15:46 | XMS_ITS | Clinical Summary ---
Author Organization [facility] Address [address] [place] [address] Care Team Providers Care Access Clerk Name Role Phone Unavailable Primary Care Provider [...] (1 of 2) 2014 Influenza Vaccine (#1) 2024 0, 2019, 2019, Additional history exists DTap [...]
--- OUTSIDE RECORDS SUMMARY | 2024-09-24 15:46 | XMS_ITS ---
Author Name [facility] Organization Unknown Problems Problem Status Onset Date Problem Type Date of Resoluti on Source Candidal stomatitis active EncounterDiagnosisAc t CCT
--- NOTE | 2024-09-24 15:57 | A.OFFVIS_ITS ---
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 She reported a prior A1c of 6.2%-she was started on metformin 500mg and pioglitazone 15mg by colleague. the latter was stopped after being seen in evaluation for osteoporosis. She continues to follow with Dr Wong for osteoporosis She has seen nutrition. continues on metformin. Feels that glucose is low at times. In 70s, 80s. Discussed we could stop metformin and monitor A1C. ROS CONSTITUTIONAL: Denies weight loss, fever and chills. HEENT: Denies changes in vision and hearing. RESPIRATORY: Denies SOB and cough. CV: Denies palpitations and CP GI: Denies abdominal pain, nausea, vomiting and diarrhea. : Denies dysuria and urinary frequency. MSK: Denies new myalgia and joint pain. SKIN: Denies rash and pruritus. NEUROLOGICAL: Denies headache PSYCHIATRIC: Denies recent changes in mood. PHYSICAL EXAM: GENERAL: Alert and oriented x 3. NAD EYES: EOMI. Anicteric. HENT: Moist mucous membranes. No scleral icterus. No cervical lymphadenopathy. LUNGS: Clear to auscultation bilaterally. CARDIOVASCULAR: Regular rate and rhythm. No murmur. No JVD. ABDOMEN: Soft, non-tender +bs EXTREMITIES: No edema. Non-tender. SKIN: No rashes or lesions. Warm. NEUROLOGIC: No focal neurological deficits. CN II-XII grossly intact PSYCHIATRIC: Cooperative. Appropriate mood and affect [facility] Medical History (Updated 09/28/24 @ 21:50 by Briana Hayes MD) Osteoporosis Pre-diabetes Obesity Anemia Smoker Rheumatoid arthritis Bronchitis COPD (chronic obstructive pulmonary disease) High cholesterol Surgical History Hx of shoulder surgery Hx of colonoscopy History of ear surgery History of lung surgery Hx laparoscopic cholecystectomy Family History Mother Heart disease Father Diabetes Lung cancer Rheumatoid arthritis Social History Patient Tobacco Use Status: Current everyday Tobacco user Tobacco use type: Cigarette Cigarettes Per Day: 2 Current occupational status: employed 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 Physical Exam Vital Signs: Last Vital Signs Pulse 81 09/24/24 15:58 BP 138/74 09/24/24 15:58 Pulse Ox 98 09/24/24 15:58 Oxygen Delivery Method Room Air 09/24/24 15:58 BMI result Body Mass Index 25.7 Results Reviewed Results Reviewed: Laboratory Last Values Glucose (Clinic) 92 mg/dL (60-115) 09/24/24 16:02 Assessment & Plan Assessment & Plan (1) Pre-diabetes: Code(s): R73.03 - Prediabetes Category: Medical (2) Osteoporosis: Code(s): M81.0 - Age-related osteoporosis without current pathological fracture Category: Medical Qualifiers: Osteoporosis type: unspecified Presence of current pathological fracture: unspecified Qualified Code(s): M81.0 - Age-related osteoporosis without current pathological fracture Plan Stop metformin Monitor A1C. Monitor glucose/carb intake Orders: Orders Hemoglobin A1c 2 Months R73.03 - Prediabetes Coding Level of Care Code Est Pt Level 4 (43718) Diagnoses Pre-diabetes R73.03 Osteoporosis, unspecified osteoporosis type, unspecified pathological fracture presence M81.0 Osteoporosis type: unspecified Presence of current pathological fracture: unspecified
[2024-09-24 15:58] VITALS: BP 138/74; PULSE 81; O2SAT 98; BMI 25.7
[2024-09-24 16:05] LABS: Glucose, Whole Blood 92 mg/dL (60-115)
== END 2024-09-24 16:17 | disposition home or self-care (01) ==
LOC: HO.ENCR 15:39
PROVIDERS: PCP Family Medicine; Visit Provider Internal Medicine
DX: R73.03 Prediabetes (principal); M81.0 Age-related osteoporosis without current pathological fracture

== ENCOUNTER → 2024-09-24 15:39 | Outpatient (BNVA) | payer BC, MEDICAID, SELFPAY | PROVIDERS: PCP Family Medicine; Visit Provider Internal Medicine | DX: R73.03 Prediabetes (principal); M81.0 Age-related osteoporosis without current pathological fracture | CPT/HCPCS: 82947 ==